=== PATIENT | female | born 1950 | race Caucasian/White ===

== ENCOUNTER → 2016-12-22 | Outpatient (CLI) | payer MEDICARE, OTHER ==
[2016-12-22 10:18] LABS: CH 30.8; CHCM 33.4; HCT 40.5 % (34.0-46.0); HDW 2.55; MCH 29.7 pg (25.0-35.0); MCHC 32.2 g/dL (31.0-37.0); MCV 92.4 fL (80.0-100.0); Mean Platelet Volume 7.4; RBC 4.38 m/uL (3.80-5.40); RDW 12.5 % (11.5-15.5); WBC 5.8 k/uL (3.8-10.6)
[2016-12-22 10:36] LABS: Calcium 10.1 mg/dL (8.4-10.2); Potassium 4.3 mmol/L (3.5-5.1); Total Bilirubin 0.9 mg/dL (0.2-1.3); Total Protein 7.2 g/dL (6.3-8.2)
== END | disposition home or self-care (01) ==
LOC: LABPAT 09:36
PROVIDERS: ATTEND Surgery
DX: Z01.812 Encounter for preprocedural laboratory examination (principal); Z01.810 Encounter for preprocedural cardiovascular examination
CPT/HCPCS: 80053; 85027

== ENCOUNTER 2017-01-13 07:10 | Inpatient (IN) | payer MEDICARE, OTHER ==
[~2017-01-13 07:10] MED LIST: DEXAMETHASONE SOD PHOSPHATE 10 MG/ML 1 ML VIAL IV ONE; ENOXAPARIN 40 MG/0.4 ML SYRINGE SQ ONE; ONDANSETRON 4 MG/2 ML VIAL IVP ONE; ceFAZolin 2 GM in SODIUM CHLORIDE 0.9% 100 ML IVPB ONE
[2017-01-13] MEDS: LACTATED RINGERS 1,000 ML IV SCH (08:27)
[2017-01-13] MEDS: MIDAZOLAM 2 MG/2 ML VIAL IV PRN ×2 (08:31→08:39)
--- NOTE | 2017-01-13 09:32 | P.GSHP ---
History of Present Illness H&P Date: 01/13/17 Chief Complaint: Morbid obesity Patient here today for elective sleeve gastrectomy. She has been followed in the outpatient setting over the last several months for this. She has a history of chronic reflux disease. She is a previous upper endoscopy showing hiatal hernia. She did previously consider gastric bypass but is more comfortable with the option of sleeve gastrectomy. She has the comorbidities of hyperlipidemia hypertension arthritis and reflux. Denies dysphagia or DVT in the past. She does have a history of postoperative nausea and vomiting. No tobacco use. Recent weight 110 kg with height 5 foot 5 BMI 36. Past Medical History Past Medical History: GERD/Reflux, Hyperlipidemia, Hypertension, Osteoarthritis (OA), Skin Disorder, Sleep Apnea/CPAP/BIPAP Additional Past Medical History / Comment(s): rosacea, neuopathy bilateral , chronic back pain,GLAUCOMA History of Any Multi-Drug Resistant Organisms: None Reported Past Surgical History: Appendectomy, Cholecystectomy, Hysterectomy, Joint Replacement, Orthopedic Surgery, Tonsillectomy, Tubal Ligation Additional Past Surgical History / Comment(s): lasik, orif rt elbow, rt hip replacement, cataracts, left knee replacement, Past Anesthesia/Blood Transfusion Reactions: Motion Sickness, Postoperative Nausea & Vomiting (PONV) Past Psychological History: Anxiety, Depression Smoking Status: Never smoker Past Alcohol Use History: None Reported Past Drug Use History: None Reported - Past Family History Father Family Medical History: Seizure Disorder Additional Family Medical History / Comment(s): alcoholic, metal plate in head, at 54 Mother Family Medical History: Cancer Additional Family Medical History / Comment(s): cancer of bowel Medications and Allergies Home Medications Medication Instructions Recorded Confirmed Type ALPRAZolam [Xanax] 0.5 mg PO BID 07/03/14 01/13/17 History Olmesartan/Hydrochlorothiazide 1 tab PO HS 07/03/14 01/13/17 History [Benicar Hct 40-25 mg Tablet] Metoprolol Succinate [Toprol XL] 50 mg PO HS 07/10/14 01/13/17 History traMADol HCl [Ultram] 100 mg PO HS 04/23/15 01/13/17 History Atorvastatin [Lipitor] 40 mg PO HS 03/11/16 01/13/17 History Escitalopram [Lexapro] 20 mg PO DAILY 04/20/16 02/22/17 History Omeprazole 20 mg PO DAILY 03/11/16 01/13/17 History Allergies Allergy/AdvReac Type Severity Reaction Status Date / Time adhesive tape Allergy Rash/Hives Verified 01/13/17 07:57 Penicillins Allergy Rash/Hives Verified 01/13/17 07:57 bandaids Allergy red skin Uncoded 01/13/17 07:57 Surgical - Exam Vital Signs Temp Pulse Resp BP Pulse Ox 97.9 F 61 20 103/51 96 01/13/17 08:05 01/13/17 08:05 01/13/17 08:05 01/13/17 08:05 01/13/17 08:05 Physical exam: General: Well-developed, well-nourished HEENT: Normocephalic, sclerae nonicteric Abdomen: Nontender, nondistended Extremities: No edema Neuro: Alert and oriented Assessment and Plan (1) Obesity (BMI 30-39.9) Narrative/Plan: Will proceed with elective sleeve gastrectomy at this time. The risks of bleeding, infection, leak, stricture, abscess, fistula formation, peritonitis, respiratory failure, PE, DVT, increased or persistent reflux, poor weight loss were all discussed. She understands and wishes to proceed. Status: Acute
[2017-01-13] MEDS ORDERED: GLYCOPYRROLATE 0.2 MG/ML 2 ML VIAL ONE (09:56)
[2017-01-13] MEDS ORDERED: SUCCINYLCHOLINE CHLORIDE 100 MG/5 ML SYR IV ONE (09:56)
[2017-01-13] MEDS ORDERED: MIDAZOLAM 2 MG/2 ML VIAL ONE (09:56)
[2017-01-13] MEDS ORDERED: fentaNYL (PF) 50 MCG/ML 2 ML AMP ONE (09:56)
[2017-01-13] MEDS ORDERED: PROPOFOL 10 MG/ML 20 ML VIAL IV ONE (09:56)
[2017-01-13] MEDS ORDERED: NEOSTIGMINE 1 MG/ML 10 ML VIAL ONE (09:56)
[2017-01-13] MEDS ORDERED: ROCURONIUM BROMIDE 10 MG/ML 10 ML VIAL IV ONE (09:56)
[2017-01-13] MEDS ORDERED: BUPIVACAIN-EPI 0.25%-1:200,000 30 ML VIAL SQ ONE (10:29)
[2017-01-13] MEDS ORDERED: LACTATED RINGERS 1,000 ML IV ONE (11:31)
[2017-01-13] MEDS ORDERED: SIMETHICONE 40 MG/0.6 ML DROPS 2,000 MG/30 ML BOTTLE PO PRN (12:15)
[2017-01-13] MEDS ORDERED: NALOXONE 0.4 MG/ML 1 ML VIAL IV PRN (12:15)
[2017-01-13] MEDS ORDERED: ONDANSETRON 4 MG/2 ML VIAL IVP PRN (12:15)
[2017-01-13] MEDS ORDERED: HYOSCYAMINE ORAL DROPS 1.875 MG/15 ML BOTTLE PO PRN (12:15)
[2017-01-13] MEDS ORDERED: diphenhydrAMINE 50 MG/ML 1 ML VIAL IVP PRN (12:15)
[2017-01-13] MEDS: HYDROmorphone 1 MG/ML 1 ML SYRINGE IVP PRN ×3 (12:40→18:50)
--- NOTE | 2017-01-13 12:44 | P.OP ---
Date of Procedure: 01/13/17 Procedure(s) Performed: PREOPERATIVE DIAGNOSIS: Morbid obesity, hypertension, GERD, hyperlipidemia, arthritis POSTOPERATIVE DIAGNOSIS: Same PROCEDURE: Laparoscopic sleeve gastrectomy [with repair hiatal hernia] SURGEON: Taya EBL: Minimal ANESTHESIA: General COMPLICATIONS: None OPERATIVE PROCEDURE: Patient was placed in the operating table in the supine position. She was placed under general anesthesia at that time. The abdomen was prepped and draped in sterile fashion after the patient was placed in lithotomy. A 5 mm optical trocar was used to enter the abdominal cavity in the left upper quadrant. Insufflation took place to 15 millimeters mercury. An additional right subxiphoid 5 mm trocar was then placed under direct relation and then removed. 2 additional 5 mm trochars were placed in the right upper quadrant and left upper quadrant under direct visualization and a 15 mm trocar in the infra umbilical location. The liver was retracted using a medium Sierra liver retractor through the right subxiphoid trocar site. The hiatus was inspected. The patient had a small to moderate sized hiatal hernia. Circumferentially the phrenoesophageal ligament was incised identifying the actual defect. The right diaphragmatic crura was well visualized. I was able to bluntly dissect and visualize the left diaphragmatic crura. At that point I moved to the mid aspect of the greater curvature the stomach. The short gastric vasculature was divided using a LigaSure device proximally. I then switched and divided the short gastrics distally to a 3-4 cm from the pylorus. The dissection took place up to the left diaphragmatic crura at that point. The posterior short gastrics were likewise divided using the LigaSure device. Once the stomach was fully mobilized the blunt tipped 40-Romanian bougie dilator was advanced into the stomach and advanced all the way to the prepyloric location. A black echelon 60 stapler was utilized and fired tangentially across the antrum taking care to avoid narrowing at the incisura angularis. Subsequent firings of the stapler took place. A total of 6 green echelon 60 staplers with seam guard took place proximally staying on the outer edge of our dilator. The oral gastric tube was reinserted. The stomach was insufflated with approximately 100 mL of methylene blue. No evidence of leak or obstruction was seen. The hiatus was then addressed once again. 2 separate 2- 0 Ethibond sutures were used to reapproximate the crura posteriorly. This adequately closed the diaphragmatic hernia. Tisseel fibrin glue was then sprayed along the entire length of the staple line. No bleeding was identified. The distal aspect of the sleeve was then reapproximated to the gastrosplenic and gastrocolic ligament using a short running 20 strata fix suture. This was done to prevent kinking or twisting of the sleeve. The stomach remnant was removed from the 15 mm trocar site without difficulty. The fascia at the 15 more site was closed using interrupted 0 Vicryl sutures with the laparoscopic suture passer and Adryan Chele technique. The insufflation was evacuated. The skin at all 5 incisions were closed using 4-0 Monocryl sutures. Steri-Strips and sterile dressings were then applied. DISPOSITION: Stable to recovery room
[2017-01-13] MEDS: ACETAMINOPHEN IV (For NPO) 1,000 MG in EMPTY BAG 1 BAG IVPB ONE ×3 (13:30→15:12)
[2017-01-13] MEDS: ALBUTEROL NEBULIZED 2.5 MG/3 ML INHALATION SCH ×2 (15:43→19:25)
[2017-01-13] MEDS: 0.9% NACL WITH KCL 20 MEQ/L 1,000 ML IV SCH ×2 (18:48→20:36)
[2017-01-14] MEDS: HYDROmorphone 1 MG/ML 1 ML SYRINGE IVP PRN ×3 (00:08→09:06)
[2017-01-14] MEDS: 0.9% NACL WITH KCL 20 MEQ/L 1,000 ML IV SCH (02:14)
[2017-01-14] MEDS: LACTATED RINGERS 1,000 ML IV SCH (05:52)
[2017-01-14 07:36] LABS: Basophils % (A) 0 %; CH 30.7; CHCM 33.2; Eosinophils % (A) 0 %; HDW 2.38; HGB 11.2 gm/dL (11.4-16.0); Luc # (Auto) 0.26; Luc % (Auto) 3; Lymphocytes # (A) 1.5 k/uL (1.0-4.8); Lymphocytes % (A) 16 %; MCH 30.6 pg (25.0-35.0); MCHC 32.9 g/dL (31.0-37.0); MCV 92.9 fL (80.0-100.0); Mean Platelet Volume 7.9; Monocytes # (A) 0.6 k/uL (0-1.0); Monocytes % (A) 6 %; Neutrophils # (A) 7.4 k/uL (1.3-7.7); Neutrophils % (A) 75 %; RBC 3.66 m/uL (3.80-5.40); WBC 9.9 k/uL (3.8-10.6); WBC (Perox) 11.06
[2017-01-14 07:54] LABS: Calcium 9.2 mg/dL (8.4-10.2); Magnesium 2.2 mg/dL (1.6-2.3); Phosphorous 3.4 mg/dL (2.5-4.5); Potassium 5.2 mmol/L (3.5-5.1)
[2017-01-14] MEDS ORDERED: 1: MVI, ADULT NO.4 WITH VIT K 10 ML, THIAMINE 100 MG, FOLIC ACID 1 MG, POTASSIUM CHLORID IV SCH ×6 (08:00)
[2017-01-14] MEDS: ALBUTEROL NEBULIZED 2.5 MG/3 ML INHALATION SCH (08:54)
[2017-01-14] MEDS: PANTOPRAZOLE 40 MG/10 ML VIAL IV SCH (09:03)
[2017-01-14] MEDS: ENOXAPARIN 40 MG/0.4 ML SYRINGE SQ SCH ×2 (09:04→21:25)
--- NOTE | 2017-01-14 09:20 | FL ---
EXAMINATION TYPE: FL UGI DATE OF EXAM: 01/14/2017 9:10 AM LIMITED UGI: CLINICAL HISTORY: Morbid Obesity, history of Rm fundoplication surgery in the past status post g astric sleeve surgery yesterday. TECHNIQUE: Limited esophagram is performed utilizing 50 oz of Omnipaque 350. A total of 39 seconds o f fluoroscopic time was utilized during procedure. COMPARISON: None. FINDINGS: The patient swallowed contrast without difficulty or delay. Esophageal peristalsis and mo tility are within normal limits. There is good flow of contrast along the diaphragmatic hiatus into proximal stomach and subsequent flow into gastric sleeve. No persistent hiatal hernia is seen. There is mild delay in flow from distal sleeve into pylorus and duodenal sweep. Patient remains nauseous be fore and after procedure without vomiting. There is no evidence of contrast extravasation to suggest leak. Cholecystectomy clips are incidentally noted. IMPRESSION: No evidence of leak or significant obstruction status post recent gastric sleeve surgery yesterday.
[2017-01-14] MEDS ORDERED: METOCLOPRAMIDE 5 MG/ML 2 ML VIAL IVP PRN (09:21)
[2017-01-14] MEDS ORDERED: ONDANSETRON 4 MG/2 ML VIAL IVP PRN (09:24)
[2017-01-14] MEDS: KETOROLAC 30 MG/ML 1 ML VIAL IVP PRN ×3 (09:34→20:25)
[2017-01-14] MEDS: DEXTROSE 5%-0.45% NACL 1,000 ML IV SCH ×2 (09:35→20:22)
[2017-01-14 12:29] VITALS: BMI 35.5
--- NOTE | 2017-01-14 12:43 | P.CONS ---
History of Present Illness - Reason for Consult Consult date: 01/14/17 Medical management Requesting physician: Ryan Bain - Chief Complaint Morbid obesity - History of Present Illness Patient is a 66-year-old white female, with past medical history noted below significant for morbid obesity not responding to conservative treatment, admitted to the hospital for elective laparoscopic sleeve gastrectomy with repair of hiatal hernia. Patient tolerated procedure well. Patient is evaluated on the surgical floor where she is postop day #1. Patient is complaining of moderate incisional pain. Reports minimal nausea without vomiting. Denies chills, fevers, shortness of breath, or chest pain. Denies flatus or bowel movements. Patient has been up ambulating. Patient is urinating without difficulty. Upper GI series from this morning with no evidence of leak or obstruction. Patient is tolerating sips of liquids. Past Medical History Past Medical History: GERD/Reflux, Hyperlipidemia, Hypertension, Osteoarthritis (OA), Skin Disorder, Sleep Apnea/CPAP/BIPAP Additional Past Medical History / Comment(s): rosacea, neuopathy bilateral , chronic back pain,GLAUCOMA History of Any Multi-Drug Resistant Organisms: None Reported Past Surgical History: Appendectomy, Cholecystectomy, Hysterectomy, Joint Replacement, Orthopedic Surgery, Tonsillectomy, Tubal Ligation Additional Past Surgical History / Comment(s): lasik, orif rt elbow, rt hip replacement, cataracts, left knee replacement, Past Anesthesia/Blood Transfusion Reactions: Motion Sickness, Postoperative Nausea & Vomiting (PONV) Past Psychological History: Anxiety, Depression Smoking Status: Never smoker Past Alcohol Use History: None Reported Past Drug Use History: None Reported - Past Family History Father Family Medical History: Seizure Disorder Additional Family Medical History / Comment(s): alcoholic, metal plate in head, at 54 Mother Family Medical History: Cancer Additional Family Medical History / Comment(s): cancer of bowel Medications and Allergies Home Medications Medication Instructions Recorded Confirmed Type ALPRAZolam [Xanax] 0.5 mg PO BID 07/03/14 01/13/17 History Olmesartan/Hydrochlorothiazide 1 tab PO HS 07/03/14 01/13/17 History [Benicar Hct 40-25 mg Tablet] traMADol HCl [Ultram] 100 mg PO HS 04/23/15 01/13/17 History Atorvastatin [Lipitor] 40 mg PO HS 03/11/16 01/13/17 History Escitalopram [Lexapro] 20 mg PO DAILY 03/11/16 01/13/17 History Omeprazole 20 mg PO DAILY 03/11/16 01/13/17 History Metoprolol Succinate [Toprol XL] 50 mg PO HS 01/13/17 01/13/17 History Allergies Allergy/AdvReac Type Severity Reaction Status Date / Time adhesive tape Allergy Rash/Hives Verified 01/13/17 07:57 Penicillins Allergy Rash/Hives Verified 01/13/17 07:57 albuterol AdvReac Unknown Verified 01/14/17 09:53 bandaids Allergy red skin Uncoded 01/13/17 07:57 Physical Exam Vitals: Vital Signs Temp Pulse Pulse Pulse Pulse Resp BP 01/14/17 09:08 01/14/17 09:04 84 01/14/17 08:54 80 01/14/17 08:00 72 64 16 01/14/17 07:00 97.6 F 64 16 01/14/17 06:24 57 L 18 01/14/17 01:10 98.2 F 91 16 01/14/17 00:16 82 01/14/17 00:00 01/13/17 23:34 01/13/17 20:00 97.0 F L 98 16 01/13/17 19:39 88 01/13/17 19:22 88 01/13/17 16:31 01/13/17 16:00 80 16 01/13/17 15:50 80 01/13/17 15:15 63 01/13/17 15:00 57 L 01/13/17 14:45 57 L 01/13/17 14:30 50 L 01/13/17 14:15 55 L 01/13/17 14:00 97.4 F L 60 16 01/13/17 13:43 72 16 01/13/17 13:30 71 16 01/13/17 13:15 64 16 01/13/17 13:00 67 16 01/13/17 12:45 64 16 01/13/17 12:33 77 16 133/60 BP Pulse Ox 01/14/17 09:08 99 01/14/17 09:04 01/14/17 08:54 01/14/17 08:00 01/14/17 07:00 121/68 99 01/14/17 06:24 133/60 100 02/23/17 01:10 105/59 92 L 01/14/17 00:16 118/74 01/14/17 00:00 97 01/13/17 23:34 94 L 01/13/17 20:00 125/60 96 01/13/17 19:39 01/13/17 19:22 01/13/17 16:31 94 L 01/13/17 16:00 01/13/17 15:50 01/13/17 15:15 161/75 95 01/13/17 15:00 159/66 95 01/13/17 14:45 150/68 95 01/13/17 14:30 162/64 95 01/13/17 14:15 162/64 95 01/13/17 14:00 145/76 95 01/13/17 13:43 152/75 99 01/13/17 13:30 157/77 99 01/13/17 13:15 136/81 96 01/13/17 13:00 96/53 96 01/13/17 12:45 95/60 96 01/13/17 12:33 96 Intake and Output 01/13/17 01/14/17 01/14/17 22:59 06:59 14:59 Output Total 50 150 Balance -50 -150 Output: Urine 50 150 Other: Voiding Method Toilet Toilet Toilet # Voids 1 180 Weight 98.43 kg Patient Weight 01/15/17 06:59 Weight 98.43 kg GENERAL: Pt awake and alert, well-appearing, well-nourished, and in no acute distress. HEAD: Atraumatic, normocephalic. EYES: Pupils equal and round. Sclera anicteric, conjunctiva are normal. ENT: Moist mucous membranes. NECK:Supple without lymphadenopathy or JVD. LUNGS: Breath sounds clear to auscultation bilaterally. No wheezes, rales, or rhonchi. HEART: Heart S1, S2, no S3 or S4. Regular rate and rhythm. No murmurs, rubs or gallops. ABDOMEN: Soft, morbidly obese, mild incisional tenderness, nondistended, normoactive bowel sounds. Laparoscopic surgical incisions clean, dry, no erythema or drainage. EXTREMITIES: Palpable peripheral pulses. No edema. No calf tenderness. NEUROLOGICAL: Pt oriented x 3. No focal deficits. Strength and sensation grossly intact. PSYCH: Normal mood, normal affect. SKIN: Warm, dry, intact. Results CBC & Chem 7: 01/14/17 07:17 01/14/17 07:17 Labs: Abnormal Lab Results - Last 24 Hours (Table) 01/14/17 01/14/17 Range/Units 07:17 07:17 RBC 3.66 L (3.80-5.40) m/uL Hgb 11.2 L (11.4-16.0) gm/dL Potassium 5.2 H (3.5-5.1) mmol/L BUN 38 H (7-17) mg/dL Creatinine 1.43 H (0.52-1.04) mg/dL Assessment and Plan Plan: Impression and plan: 1. Morbid obesity status post laparoscopic sleeve gastrectomy. Continue surgical management by surgical service. 2. Anemia, postop suspect secondary to minimal blood loss and possible hemodilution. 3. Hyperkalemia. Potassium 5.2. Discontinue potassium from IV fluids. 4. Acute renal failure suspect secondary to dehydration. Continue IV fluids. Will hold Benicar. 5. Chronic renal failure, stage III. 6. Dyslipidemia. Continue Lipitor. 7. GERD. Continue Protonix. 8. Hypertension. Continue metoprolol. 9. Osteoarthritis to multiple joints. 10. Chronic back pain. Continue supportive treatment. 11. Sleep apnea. Continue to monitor. 12. History of Glaucoma. 13. Anxiety and depression, stable. Continue Lexapro. 14. GI prophylaxis. Continue Protonix. 15. DVT prophylaxis. Continue Lovenox. 16. Repeat CBC and BMP in a.m. The above impression and plan have been discussed and directed by Dr. Chamberlain. Dana CRAWFORD acting as scribe for Dr. Chamberlain.
[2017-01-14] MEDS: ESCITALOPRAM 20 MG TAB PO SCH (13:06)
[2017-01-14 14:48] LABS: Glucose,Whole Blood 107 mg/dL (75-99)
[2017-01-14] MEDS ORDERED: LORazepam 2 MG/ML SYRINGE IV STA (14:55)
[2017-01-14] MEDS ORDERED: KETOROLAC 30 MG/ML 1 ML VIAL IVP SCH (15:00)
[2017-01-14] MEDS: ALPRAZolam 0.5 MG TAB PO SCH ×2 (15:01→20:25)
--- NOTE | 2017-01-14 19:13 | P.PN ---
Subjective Principal diagnosis: Morbid obesity Patient doing fairly well from a bariatric standpoint. She is having mild left upper quadrant pain. Denies dysphagia. Upper GI shows no evidence of leak or obstruction. She has afebrile without tachycardia. Her white blood cell count is normal. Objective - Vital Signs Vital signs: Vital Signs Temp 97.5 F L 01/14/17 14:58 Pulse 84 01/14/17 16:00 Resp 20 01/14/17 16:00 BP 131/76 01/14/17 14:58 Pulse Ox 99 01/14/17 14:58 Intake & Output 01/14/17 01/14/17 01/15/17 06:59 18:59 06:59 Output Total 200 300 Balance -200 -300 Weight 98.43 kg Output: Urine 200 300 Other: Voiding Method Toilet Toilet # Voids 180 - Exam Abdomen: Soft, nondistended, mild tenderness at the incision sites - Labs CBC & Chem 7: 01/14/17 07:17 01/14/17 07:17 Labs: Abnormal Lab Results - Last 24 Hours (Table) 01/14/17 01/14/17 01/14/17 Range/Units 07:17 07:17 14:45 RBC 3.66 L (3.80-5.40) m/uL Hgb 11.2 L (11.4-16.0) gm/dL Potassium 5.2 H (3.5-5.1) mmol/L BUN 38 H (7-17) mg/dL Creatinine 1.43 H (0.52-1.04) mg/dL POC Glucose (mg/dL) 107 H (75-99) mg/dL Assessment and Plan (1) Obesity (BMI 30-39.9) Narrative/Plan: Continue bariatric clear diet. Increase activity. Reevaluate tomorrow. Status: Acute
[2017-01-14] MEDS ORDERED: HYDROCHLOROTHIAZIDE 25 MG TAB PO SCH (21:00)
[2017-01-14] MEDS ORDERED: METOPROLOL SUCCINATE (ER) 50 MG TAB.ER.24H PO SCH (21:00)
[2017-01-14] MEDS ORDERED: ATORVASTATIN 40 MG TAB PO SCH (21:00)
[2017-01-14] MEDS ORDERED: LOSARTAN 50 MG TAB PO SCH (21:00)
[2017-01-15] MEDS: DEXTROSE 5%-0.45% NACL 1,000 ML IV SCH ×2 (01:51→10:56)
[2017-01-15] MEDS: KETOROLAC 30 MG/ML 1 ML VIAL IVP PRN ×2 (02:02→07:54)
[2017-01-15 02:22] VITALS: RESP 16
[2017-01-15 07:48] LABS: Basophils # (A) 0.1 k/uL (0-0.2); Basophils % (A) 1 %; CH 30.5; CHCM 32.5; Eosinophils # (A) 0.1 k/uL (0-0.7); Eosinophils % (A) 1 %; HCT 32.2 % (34.0-46.0); HDW 2.39; HGB 10.5 gm/dL (11.4-16.0); Luc # (Auto) 0.22; Luc % (Auto) 3; Lymphocytes # (A) 2.4 k/uL (1.0-4.8); Lymphocytes % (A) 29 %; MCH 30.9 pg (25.0-35.0); MCHC 32.7 g/dL (31.0-37.0); MCV 94.4 fL (80.0-100.0); Mean Platelet Volume 7.7; Monocytes # (A) 0.6 k/uL (0-1.0); Monocytes % (A) 7 %; Neutrophils # (A) 4.9 k/uL (1.3-7.7); Neutrophils % (A) 59 %; RBC 3.41 m/uL (3.80-5.40); RDW 13.2 % (11.5-15.5); WBC 8.2 k/uL (3.8-10.6); WBC (Perox) 8.97
[2017-01-15 08:07] LABS: Calcium 9.1 mg/dL (8.4-10.2); Potassium 4.4 mmol/L (3.5-5.1)
[2017-01-15] MEDS: ESCITALOPRAM 20 MG TAB PO SCH (08:07)
[2017-01-15] MEDS: ENOXAPARIN 40 MG/0.4 ML SYRINGE SQ SCH (08:07)
[2017-01-15] MEDS: PANTOPRAZOLE 40 MG/10 ML VIAL IV SCH (08:07)
[2017-01-15] MEDS: ALPRAZolam 0.5 MG TAB PO SCH (08:10)
--- NOTE | 2017-01-15 13:21 | P.DS ---
Providers Date of admission: 01/13/17 07:10 Expected date of discharge: 01/15/17 Attending physician: Ryan Bain Consults: 01/13/17 12:15 Consult Physician Routine Consulting Provider: Rogerio Chamberlain Consult Reason/Comments: Medical management Do you want consulting provider notified?: Yes Primary care physician: Rogerio Chamberlain - Discharge Diagnosis(es) (1) Obesity (BMI 30-39.9) Patient hospitalized for elective sleeve gastrectomy. Postoperative issues done quite well. She is tolerating her diet at this time. She did have an anxiety attack that was treated well with Ativan. She would like to try to go home today. She has had about 15 ounces of liquids thus far today. Her labs have been reviewed. Incisions are clean and dry. Prescription for [place] provided upon discharge. She will follow up me in the office next Wednesday. Current Visit: No Status: Acute Plan - Discharge Summary New Discharge Prescriptions: Hydrocodone/Acetaminophen [[place] 5-325] 1 - 2 each PO Q4HR PRN #30 tab PRN Reason: pain Discharge Medication List ALPRAZolam [Xanax] 0.5 mg PO BID 07/03/14 [History] Olmesartan/Hydrochlorothiazide [Benicar Hct 40-25 mg Tablet] 1 tab PO HS [History] traMADol HCl [Ultram] 100 mg PO HS 04/23/15 [History] Atorvastatin [Lipitor] 40 mg PO HS 03/11/16 [History] Escitalopram [Lexapro] 20 mg PO DAILY 03/11/16 [History] Omeprazole 20 mg PO DAILY 03/11/16 [History] Hydrocodone/Acetaminophen [[place] 5-325] 1 - 2 each PO Q4HR PRN #30 tab 01/13/17 [Rx] Metoprolol Succinate [Toprol XL] 50 mg PO HS 01/13/17 [History] Follow up Appointment(s)/Referral(s): [facility] [NON-STAFF] - 01/19/17 [facility], [NON-STAFF] - 1 Week
--- NOTE | 2017-01-15 13:37 | P.PN ---
Subjective Principal diagnosis: Morbid obesity Patient is a 66-year-old white female, with past medical history noted below significant for morbid obesity not responding to conservative treatment, admitted to the hospital for elective laparoscopic sleeve gastrectomy with repair of hiatal hernia. Patient tolerated procedure well. Patient is evaluated on the surgical floor where she is postop day #2. Patient is complaining of mild incisional pain. Denies dysphagia chills, nausea, vomiting , shortness of breath, or chest pain. Reports flatus without bowel movement. Patient has been up ambulating. Patient is urinating without difficulty. Patient is tolerating sips of liquids. Objective - Vital Signs Vital signs: Vital Signs Temp 97.4 F L 01/15/17 07:00 Pulse 104 H 01/15/17 10:50 Resp 16 01/15/17 08:00 BP 139/65 01/15/17 07:00 Pulse Ox 95 01/15/17 10:50 Intake & Output 01/14/17 01/15/17 01/15/17 18:59 06:59 18:59 Output Total 300 450 200 Balance -300 -450 -200 Weight 98.43 kg 98.43 kg Output: Urine 300 450 200 Other: Voiding Method Toilet Toilet Toilet # Voids 180 - Exam GENERAL: Pt awake and alert, well-appearing, well-nourished, and in no acute distress. HEAD: Atraumatic, normocephalic. EYES: Pupils equal and round. Sclera anicteric, conjunctiva are normal. ENT: Moist mucous membranes. NECK:Supple without lymphadenopathy or JVD. LUNGS: Breath sounds clear to auscultation bilaterally. No wheezes, rales, or rhonchi. HEART: Heart S1, S2, no S3 or S4. Regular rate and rhythm. No murmurs, rubs or gallops. ABDOMEN: Soft, morbidly obese, mild incisional tenderness, nondistended, normoactive bowel sounds. Laparoscopic surgical incisions clean, dry, no erythema or drainage. EXTREMITIES: Palpable peripheral pulses. No edema. No calf tenderness. NEUROLOGICAL: Pt oriented x 3. No focal deficits. Strength and sensation grossly intact. PSYCH: Normal mood, normal affect. SKIN: Warm, dry, intact. - Labs CBC & Chem 7: 01/15/17 07:15 01/15/17 07:15 Labs: Abnormal Lab Results - Last 24 Hours (Table) 01/14/17 01/15/17 01/15/17 Range/Units 14:45 07:15 07:15 RBC 3.41 L (3.80-5.40) m/uL Hgb 10.5 L (11.4-16.0) gm/dL Hct 32.2 L (34.0-46.0) % BUN 26 H (7-17) mg/dL Creatinine 1.43 H (0.52-1.04) mg/dL POC Glucose (mg/dL) 107 H (75-99) mg/dL Assessment and Plan Plan: Impression and plan: 1. Morbid obesity status post laparoscopic sleeve gastrectomy. Continue surgical management by surgical service. 2. Anemia, postop suspect secondary to minimal blood loss and possible hemodilution. 3. Hyperkalemia. Potassium 5.2. Discontinue potassium from IV fluids. 4. Acute renal failure suspect secondary to dehydration, improving. Continue IV fluids. Will hold Benicar. 5. Chronic renal failure, stage III. 6. Dyslipidemia. Continue Lipitor. 7. GERD. Continue Protonix. 8. Hypertension. Continue metoprolol. 9. Osteoarthritis to multiple joints. 10. Chronic back pain. Continue supportive treatment. 11. Sleep apnea. Continue to monitor. 12. History of Glaucoma. 13. Anxiety and depression, stable. Continue Lexapro. 14. GI prophylaxis. Continue Protonix. 15. DVT prophylaxis. Continue Lovenox. From medical standpoint, patient is stable for discharged when cleared by surgical service. Patient will follow-up with Dr. Chamberlain in a week in the outpatient setting. The above impression and plan have been discussed and directed by Dr. Chamberlain. Dana CRAWFORD acting as scribe for Dr. Chamberlain.
[2017-01-15] MEDS ORDERED: HYDROcodone/APAP 5-325MG 1 EACH TAB PO STA (15:03)
[2017-01-15 15:47] VITALS: BP 131/62; PULSE 60; TEMP 97.2
== END 2017-01-15 16:46 | disposition home or self-care (01) | DRG 620 ==
LOC: 2ORWHC 07:10 → 3SUR 12:20
PROVIDERS: ADMIT Surgery; ATTEND Surgery
PROC: 0DB64Z3 Excision of Stomach, Percutaneous Endoscopic Approach, Vertical (ICD-10-PCS; principal; 2017-01-13 08:50)
PROC: 0BQR4ZZ (ICD-10-PCS; principal; 2017-01-13 08:50)
PROC: 0BQS4ZZ (ICD-10-PCS; principal; 2017-01-13 08:50)
DX: E66.01 Morbid (severe) obesity due to excess calories (principal); N17.9 Acute kidney failure, unspecified; E87.5 Hyperkalemia; I12.9 Hypertensive chronic kidney disease with stage 1 through stage 4 chronic kidney disease, or unspecified chronic kidney disease; E78.5 Hyperlipidemia, unspecified; D64.9 Anemia, unspecified; F32.9 Major depressive disorder, single episode, unspecified; F41.1 Generalized anxiety disorder; G47.30 Sleep apnea, unspecified; G89.29 Other chronic pain; H40.9 Unspecified glaucoma; K21.9 Gastro-esophageal reflux disease without esophagitis; K44.9 Diaphragmatic hernia without obstruction or gangrene; M19.90 Unspecified osteoarthritis, unspecified site; N18.3 Chronic kidney disease, stage 3 (moderate); Z79.899 Other long term (current) drug therapy; Z68.36 Body mass index [BMI] 36.0-36.9, adult; Z88.0 Allergy status to penicillin
CPT/HCPCS: 74240; 80048; 80051; 82310; 82565; 83735; 84100; 84520; 85025; 88307; 92950; 94640; 94760

== ENCOUNTER → 2017-01-19 | Outpatient (CLI) | payer MEDICARE, OTHER ==
[2017-01-19 13:22] VITALS: BP 126/68; PULSE 70; TEMP 97.6; BMI 35.9
--- NOTE | 2017-01-19 14:02 | P.BASOAP ---
Subjective Principal diagnosis: Morbid obesity Patient doing well today. Minimal if any discomfort. She is 6 days post sleeve gastrectomy. No nausea or vomiting. Adequate liquid intake of 60-70 ounces daily. Protein intake is about 30-40 g per day. No fevers or chills. No heartburn. Objective - Vital Signs Vital signs: Vital Signs Temp 97.6 F 01/19/17 13:18 Pulse 70 01/19/17 13:18 Resp BP 126/68 01/19/17 13:18 Pulse Ox Intake & Output 01/18/17 01/19/17 01/19/17 18:59 06:59 18:59 Weight 97.749 kg - Exam Abdomen: Soft, nondistended, minimal tenderness at the incision sites which are clean and dry Assessment/Plan (1) Morbid obesity Narrative/Plan: Continue liquid diet. Dietary evaluation today. Monitor liquid protein intake. Follow-up visit 2 weeks. Plan: Date: 01/19/17 Initial Weight: 100.834 kg Initial BMI: 37.0 Current Weight: 97.749 kg Current BMI: 35.9 Type of Surgery: Total Volume in Band: Previous Volume: Volume Removed: Volume Added: Band Size:
== END | disposition home or self-care (01) ==
LOC: BARWHC3 12:52
PROVIDERS: ATTEND Surgery
DX: Z48.815 Encounter for surgical aftercare following surgery on the digestive system (principal); Z71.3 Dietary counseling and surveillance; E66.01 Morbid (severe) obesity due to excess calories; Z68.35 Body mass index [BMI] 35.0-35.9, adult
CPT/HCPCS: 97803; G0463; 99211

== ENCOUNTER → 2017-02-02 | Outpatient (CLI) | payer MEDICARE, OTHER ==
[2017-02-02 14:20] VITALS: BP 111/72; PULSE 72; RESP 20; TEMP 97.9; BMI 34.2
--- NOTE | 2017-02-17 10:17 | P.BASOAP ---
Subjective Principal diagnosis: Morbid obesity Patient seen in the bariatric clinic post-sleeve gastrectomy. She is having mild nausea. No vomiting issues. Liquid intake is adequate. No significant discomfort. Objective - Vital Signs Vital signs: Vital Signs Temp 97.9 F 02/02/17 13:58 Pulse 72 02/02/17 13:58 Resp 20 02/02/17 13:58 BP 111/72 02/02/17 13:58 Pulse Ox - Exam Abdomen: Soft, nondistended, mild tenderness, incisions clean and dry Assessment/Plan (1) Morbid obesity Narrative/Plan: Continue bariatric liquid diet. Continue exercise regimen. Follow-up 2 weeks. Plan: Date: 02/02/17 Initial Weight: 100.834 kg Initial BMI: 37.0 Current Weight: 93.213 kg Current BMI: 34.2 Type of Surgery: Total Volume in Band: Previous Volume: Volume Removed: Volume Added: Band Size:
== END | disposition home or self-care (01) ==
LOC: BARWHC3 13:13
PROVIDERS: ATTEND Surgery
DX: E66.01 Morbid (severe) obesity due to excess calories (principal); Z68.34 Body mass index [BMI] 34.0-34.9, adult; Z98.84 Bariatric surgery status
CPT/HCPCS: 97803; G0463; 99211

== ENCOUNTER 2017-02-18 12:30 | Observation (INO) | payer MEDICARE, OTHER ==
[2017-02-18] MEDS ORDERED: ONDANSETRON 4 MG/2 ML VIAL IVP STA (13:10)
[2017-02-18] MEDS ORDERED: SODIUM CHLORIDE 0.9% 1,000 ML IV STA ×2 (13:10)
--- NOTE | 2017-02-18 13:24 | ED ---
Weakness HPI - General Chief complaint: Weakness Stated complaint: Weakness 6 weeks Post Op Time Seen by Provider: 02/18/17 13:00 Source: patient, family, RN notes reviewed Mode of arrival: wheelchair Limitations: no limitations - History of Present Illness Initial comments: Is a 67-year-old female who is brought in for evaluation weakness and nausea. She had a gastric bypass and about 2 weeks ago is a decreased oral intake. She also is currently being treated for UTI. She was getting labs drawn today which felt weak and nauseated was sent here for evaluation. She denies any focal weakness is generalized weakness. MD Complaint: generalized weakness - Related Data Home Medications Medication Instructions Recorded Confirmed ALPRAZolam [Xanax] 0.5 mg PO BID 07/03/14 02/18/17 traMADol HCl [Ultram] 50 - 100 mg PO HS 04/23/15 02/18/17 Atorvastatin [Lipitor] 40 mg PO HS@1800 03/11/16 02/18/17 Escitalopram [Lexapro] 20 mg PO DAILY 03/11/16 02/18/17 Metoprolol Succinate [Toprol XL] 50 mg PO HS 01/13/17 02/18/17 Multivitamin [Multivitamins Adult 2 tab PO DAILY 02/18/17 02/18/17 Gummies] Olmesartan/Hydrochlorothiazide 1 tab PO HS@1800 02/18/17 02/18/17 [Benicar Hct 40-25 mg Tablet] Previous Rx's Medication Instructions Recorded Omeprazole 20 mg PO DAILY #90 cap 01/15/17 Allergies Allergy/AdvReac Type Severity Reaction Status Date / Time adhesive tape Allergy Rash/Hives Verified 02/18/17 14:05 Penicillins Allergy Rash/Hives Verified 02/18/17 14:05 albuterol AdvReac Unknown Verified 02/18/17 14:05 bandaids Allergy red skin Uncoded 02/02/17 14:54 Review of Systems ROS Statement: Those systems with pertinent positive or pertinent negative responses have been documented in the HPI. ROS Other: All systems not noted in ROS Statement are negative. Past Medical History Past Medical History: GERD/Reflux, Hyperlipidemia, Hypertension, Osteoarthritis (OA), Skin Disorder Additional Past Medical History / Comment(s): migraines, hiatal hernia, rosacea , acne, degenerative disc disease, neuopathy bilateral legs, several radio frequency ablations to back, 15 years of chronic back pain History of Any Multi-Drug Resistant Organisms: None Reported Past Surgical History: Bariatric Surgery, Hysterectomy, Orthopedic Surgery Additional Past Surgical History / Comment(s): lasik, orif rt elbow, rt hip replacement, cataracts, left knee replacement gastric sleeve 01-13-17 Past Anesthesia/Blood Transfusion Reactions: Motion Sickness, Postoperative Nausea & Vomiting (PONV) Past Psychological History: Anxiety Smoking Status: Never smoker Past Alcohol Use History: None Reported Past Drug Use History: None Reported - Past Family History Father Family Medical History: Seizure Disorder Additional Family Medical History / Comment(s): alcoholic, metal plate in head, at 54 Mother Family Medical History: Cancer Additional Family Medical History / Comment(s): cancer of bowel General Exam - General Exam Comments Initial Comments: This is a well-developed well-nourished awake alert anxious appearing female Limitations: no limitations General appearance: alert, in no apparent distress Head exam: Present: atraumatic, normocephalic, normal inspection Eye exam: Present: normal appearance, PERRL, EOMI. Absent: scleral icterus, conjunctival injection, periorbital swelling ENT exam: Present: mucous membranes dry Neck exam: Present: normal inspection. Absent: tenderness, meningismus, lymphadenopathy Respiratory exam: Present: normal lung sounds bilaterally. Absent: respiratory distress, wheezes, rales, rhonchi, stridor Cardiovascular Exam: Present: regular rate, normal rhythm, normal heart sounds. Absent: systolic murmur, diastolic murmur, rubs, gallop, clicks GI/Abdominal exam: Present: soft, normal bowel sounds, other (Well-healing surgical port sites). Absent: distended, tenderness, guarding, rebound, rigid Extremities exam: Present: normal inspection, full ROM, normal capillary refill. Absent: tenderness, pedal edema, joint swelling, calf tenderness Back exam: Present: normal inspection Neurological exam: Present: alert, oriented X3, CN II-XII intact Psychiatric exam: Present: normal affect, normal mood Skin exam: Present: warm, dry, intact, normal color. Absent: rash Course Vital Signs 02/18/17 02/18/17 02/18/17 12:57 14:20 15:00 Temperature 96.8 F L Pulse Rate 72 64 81 Respiratory 20 16 Rate Blood Pressure 170/77 158/72 157/73 O2 Sat by Pulse 99 98 98 Oximetry EKG Findings - EKG Results: EKG: interpreted by ERMD, sinus rhythm (Sinus rhythm of 94. Interval 164 QRS duration 96 daily since QTC of no acute ST-T wave changes evidence of a posterior infarct of undetermined age) Medical Decision Making - Medical Decision Making Patient was seen I did discuss the case with Dr. Bain, patient will be admitted for IV hydration. Dr. weber was to write orders. - Lab Data Lab Results 02/18/17 02/18/17 02/18/17 Range/Units 13:34 13:34 15:00 PT 10.8 (9.0-12.0) sec INR 1.1 (<1.1) APTT 22.2 (22.0-30.0) sec Magnesium 2.1 (1.6-2.3) mg/dL Urine Color Yellow Urine Appearance Clear (Clear) Urine pH 5.5 (5.0-8.0) Ur Specific [place] 1.013 (1.001-1.035) Urine Protein Negative (Negative) Urine Glucose (UA) Negative (Negative) Urine Ketones 1+ H (Negative) Urine Blood Negative (Negative) Urine Nitrite Negative (Negative) Urine Bilirubin Negative (Negative) Urine Urobilinogen <2.0 (<2.0) mg/dL Ur Leukocyte Esterase Large H (Negative) Urine RBC 1 (0-5) /hpf Urine WBC 40 H (0-5) /hpf Ur Squamous Epith Cells 2 (0-4) /hpf Urine Bacteria Rare H (None) /hpf Hyaline Casts 1 (0-2) /lpf - Radiology Data Radiology results: report reviewed (I did review the x-ray report no acute findings), image reviewed Disposition Clinical Impression: Dehydration, Failure to thrive Disposition: ADMITTED IP TO THIS [facility] Condition: Stable
[2017-02-18 14:29] LABS: INR 1.1 (<1.1); Partial Thromboplastin Time 22.2 sec (22.0-30.0); Prothrombin Time 10.8 sec (9.0-12.0)
--- NOTE | 2017-02-18 14:48 | XR ---
EXAMINATION TYPE: XR chest 2V DATE OF EXAM: 02/18/2017 2:44 PM COMPARISON: 07/11/2014 TECHNIQUE: PA and lateral views submitted. HISTORY: Weakness FINDINGS: The lungs are clear and there is no pneumothorax, pleural effusion, or focal pneumonia. Hypertrophi c and degenerative change of the spine. Arthropathy shoulders. IMPRESSION: 1. No acute process.
[2017-02-18 15:14] LABS: Appearance,Urine Clear (Clear); Bacteria,Urine Rare /hpf; Bilirubin,Urine Negative (Negative); Glucose,Urine (UA) Negative (Negative); Ketones,Urine 1+ (Negative); Leukocyte Esterase,Urine Large (Negative); Nitrite,Urine Negative (Negative); PH, Urine 5.5 (5.0-8.0); Particle Count 3197; Protein,Urine Negative (Negative); RBC,Urine 1 /hpf (0-5); Specific Gravity,Urine 1.013 (1.001-1.035); Squamous Epithelial Cell,Urine 2 /hpf (0-4); UA Billing (MACRO vs. MICRO) MICRO; Urobilinogen,Urine <2.0 mg/dL (<2.0); WBC,Urine 40 /hpf (0-5)
[2017-02-18 15:16] LABS: Creatine Kinase 69 U/L (30-135)
[2017-02-18] MEDS ORDERED: NALOXONE 0.4 MG/ML 1 ML VIAL IV PRN (15:24)
[2017-02-18 15:30] LABS: Creatine Kinase MB 0.4 ng/mL (0.0-2.4); Troponin I <0.012 ng/mL (0.000-0.034)
[2017-02-18] MEDS ORDERED: ACETAMINOPHEN TAB 325 MG TAB PO PRN (15:41)
[2017-02-18] MEDS ORDERED: IOHEXOL 350 MG/ML 25 ML BOTTLE (ORAL USE) PO PRN (15:41)
[2017-02-18] MEDS ORDERED: RX INFO: IV CONTRAST WAS GIVEN 1 EACH MISC MISCELLANE PRN (15:41)
--- NOTE | 2017-02-18 15:41 | P.GSHP ---
History of Present Illness H&P Date: 02/18/17 Chief Complaint: Dysphagia, dehydration Patient is well known to our service. The patient underwent elective sleeve gastrectomy on 01/13. Postoperatively the patient was seen on 02/02. It appeared the patient was tolerating her liquid intake at that time although was having problems with diarrhea. It was felt that the diarrhea could be on the basis of the protein drinks and so she held back on some of her protein supplementation for a few days advancing instead to more of a pured diet. Following that the patient described having increasing symptoms of dysphagia. Her oral intake both protein and liquid became less. For the last week or so the patient admits that she has had 20 ounces of liquids per day or less. Apparently she was seen by her primary care physician on Wednesday. She missed our appointment at the bariatric clinic at that time. She was thought to have a urinary tract infection and started on Bactrim. She states the Bactrim made her more nauseous. Our office contacted her on Wednesday and again this morning. The patient was encouraged to come to the hospital for evaluation because of her increasing weakness and the suspicion of dehydration. In the clinic labs were drawn. Her white blood cell count is normal. Her kidney function is showing evidence of dehydration. She is afebrile and no tachycardias noted. She was sent down for an upper GI to be followed by a CAT scan. While in the radiology Department the patient felt more weak and she was instead sent to the ER for evaluation. Patient admits to some mild upper abdominal discomfort. She describes belching. No severe pain. No fevers or chills. Urine was not malodorous and there was no dysuria however it was somewhat cloudy she states. Urinalysis done here does suggest a possible UTI. I believe cultures are pending. - Review of Systems Comment: The patient denies any acute changes in his vision or hearing, no dysphagia or odynophagia, no chest pain or shortness of breath, no dysuria or hematuria, no headache, no runny nose, no rectal bleeding or melena, no unexplained weight loss Past Medical History Past Medical History: GERD/Reflux, Hyperlipidemia, Hypertension, Osteoarthritis (OA), Skin Disorder Additional Past Medical History / Comment(s): migraines, hiatal hernia, rosacea , acne, degenerative disc disease, neuopathy bilateral legs, several radio frequency ablations to back, 15 years of chronic back pain History of Any Multi-Drug Resistant Organisms: None Reported Past Surgical History: Bariatric Surgery, Hysterectomy, Orthopedic Surgery Additional Past Surgical History / Comment(s): lasik, orif rt elbow, rt hip replacement, cataracts, left knee replacement gastric sleeve 01-13-17 Past Anesthesia/Blood Transfusion Reactions: Motion Sickness, Postoperative Nausea & Vomiting (PONV) Past Psychological History: Anxiety Smoking Status: Never smoker Past Alcohol Use History: None Reported Past Drug Use History: None Reported - Past Family History Father Family Medical History: Seizure Disorder Additional Family Medical History / Comment(s): alcoholic, metal plate in head, at 54 Mother Family Medical History: Cancer Additional Family Medical History / Comment(s): cancer of bowel Medications and Allergies Home Medications Medication Instructions Recorded Confirmed Type ALPRAZolam [Xanax] 0.5 mg PO BID 07/03/14 02/18/17 History traMADol HCl [Ultram] 50 - 100 mg PO HS 04/23/15 02/18/17 History Atorvastatin [Lipitor] 40 mg PO HS@1800 03/11/16 02/18/17 History Escitalopram [Lexapro] 20 mg PO DAILY 03/11/16 02/18/17 History Metoprolol Succinate [Toprol XL] 50 mg PO HS 01/13/17 02/18/17 History Multivitamin [Multivitamins Adult 2 tab PO DAILY 02/18/17 02/18/17 History Gummies] Olmesartan/Hydrochlorothiazide 1 tab PO HS@1800 02/18/17 02/18/17 History [Benicar Hct 40-25 mg Tablet] Allergies Allergy/AdvReac Type Severity Reaction Status Date / Time adhesive tape Allergy Rash/Hives Verified 02/18/17 14:05 Penicillins Allergy Rash/Hives Verified 02/18/17 14:05 albuterol AdvReac Unknown Verified 02/18/17 14:05 bandaids Allergy red skin Uncoded 02/02/17 14:54 Surgical - Exam Vital Signs Temp Pulse Resp BP Pulse Ox 96.8 F L 72 20 170/77 99 02/18/17 12:57 02/18/17 12:57 02/18/17 12:57 02/18/17 12:57 02/18/17 12:57 Physical exam: General: Well-developed, well-nourished HEENT: Normocephalic, sclerae nonicteric Abdomen: Nontender, nondistended, incisions clean and dry Extremities: No edema Neuro: Alert and oriented Results - Labs Abnormal Lab Results - Last 24 Hours (Table) 02/18/17 Range/Units 15:00 Urine Ketones 1+ H (Negative) Ur Leukocyte Esterase Large H (Negative) Urine WBC 40 H (0-5) /hpf Urine Bacteria Rare H (None) /hpf Assessment and Plan (1) Dehydration Narrative/Plan: We'll try to obtain cultures from her outpatient urinalysis. Empirically begin antibiotics. Aggressive rehydration. The patient's upper GI and CAT scan will be placed on hold this evening and reordered for tomorrow morning. Patient may require upper endoscopy for symptoms of dysphagia persist. Consult to Dr. Chamberlain as well. Status: Acute
[2017-02-18] MEDS ORDERED: SODIUM CHLORIDE 0.9% 1,000 ML with MVI, ADULT NO.4 WITH VIT K 10 ML, THIAMINE 100 MG, F... IV ONE ×4 (17:38)
[2017-02-18] MEDS: HEPARIN SODIUM,PORCINE 5,000 UNIT/ML 1 ML VIAL SQ SCH ×2 (17:41→23:18)
[2017-02-18] MEDS: D5-0.45% NACL WITH KCL 20MEQ/L 1,000 ML IV SCH (17:41)
[2017-02-18] MEDS ORDERED: HYDROmorphone 1 MG/ML 1 ML SYRINGE IVP PRN (17:46)
[2017-02-18] MEDS: ONDANSETRON 4 MG/2 ML VIAL IVP PRN (19:26)
[2017-02-18] MEDS: ACETAMINOPHEN IV (For NPO) 1,000 MG in EMPTY BAG 1 BAG IVPB PRN (20:39)
[2017-02-19] MEDS: D5-0.45% NACL WITH KCL 20MEQ/L 1,000 ML IV SCH ×4 (05:10→21:25)
[2017-02-19] MEDS: HEPARIN SODIUM,PORCINE 5,000 UNIT/ML 1 ML VIAL SQ SCH ×2 (07:16→15:48)
[2017-02-19] MEDS: PANTOPRAZOLE 40 MG/10 ML VIAL IV SCH (07:16)
[2017-02-19] MEDS: ACETAMINOPHEN IV (For NPO) 1,000 MG in EMPTY BAG 1 BAG IVPB PRN ×3 (07:19→21:25)
[2017-02-19] MEDS ORDERED: LEVOFLOXACIN 500MG-D5W PMX 500 MG in DEXTROSE/WATER 1 100ML.BAG IVPB SCH (08:00)
[2017-02-19 08:05] LABS: Basophils % (A) 1 %; CH 30.8; CHCM 32.3; Eosinophils % (A) 0 %; HDW 2.45; Luc % (Auto) 2; Lymphocytes # (A) 1.4 k/uL (1.0-4.8); Lymphocytes % (A) 26 %; MCH 31.9 pg (25.0-35.0); MCHC 33.3 g/dL (31.0-37.0); MCV 95.7 fL (80.0-100.0); Mean Platelet Volume 8.1; Monocytes # (A) 0.4 k/uL (0-1.0); Monocytes % (A) 7 %; Neutrophils # (A) 3.6 k/uL (1.3-7.7); Neutrophils % (A) 65 %; RBC 3.77 m/uL (3.80-5.40); RDW 13.1 % (11.5-15.5); WBC 5.5 k/uL (3.8-10.6); WBC (Perox) 5.44
[2017-02-19 08:29] LABS: Calcium 9.4 mg/dL (8.4-10.2); Potassium 3.9 mmol/L (3.5-5.1); Total Bilirubin 0.9 mg/dL (0.2-1.3); Total Protein 6.1 g/dL (6.3-8.2)
[2017-02-19] MEDS: SODIUM CHLORIDE 0.9% 1,000 ML with MVI, ADULT NO.4 WITH VIT K 10 ML, THIAMINE 100 MG, F... IV SCH ×4 (10:08)
--- NOTE | 2017-02-19 10:52 | FL ---
EXAMINATION TYPE: FL UGI w esophagus DATE OF EXAM: 02/19/2017 10:31 AM COMPARISON: Previous study dated 01/14/2017. HISTORY: Status post gastric sleeve. TECHNIQUE: A single contrast UGI study is performed. FINDINGS: The patient drank contrast with ease. There is prompt egress of contrast from the esophagus into the gastric sleeve. The ligament of Treitz is in the normal location. The study is similar in a ppearance to the previous examination. Note is made of previous cholecystectomy. IMPRESSION: STATUS POST GASTRIC SLEEVE.
--- NOTE | 2017-02-19 11:38 | P.PN ---
Subjective Principal diagnosis: Dehydration/UTI Patient says she did not sleep well last night because of her restless leg. She did take some pain medications but states it was because of pain in her legs that she usually takes tramadol at home for. This morning she is once again nauseous and did have some belching and maybe even a small amount of emesis after the esophagram. The patient's esophagram appears wide open with no evidence of obstruction however. Her labs show a normal white blood cell count. Creatinine remains elevated. CAT scan is currently pending. Objective - Vital Signs Vital signs: Vital Signs Temp 98.4 F 02/19/17 07:00 Pulse 80 02/19/17 07:00 Resp 12 02/19/17 08:00 BP 135/63 02/19/17 07:00 Pulse Ox 98 02/19/17 07:00 Intake & Output 02/18/17 02/19/17 02/19/17 18:59 06:59 18:59 Intake Total 1450 Balance 1450 Intake: Intake, IV Titration 1450 Amount D5-0.45% NaCl with KCl 150 20Meq/l 1,000 ml @ 150 mls/hr IV .Q6H40M KYLEIGH Rx# :[id number] Sodium Chloride 0.9% 1, 350 000 ml @ 100 mls/hr IV . Q10H STA Rx#:[id number] Sodium Chloride 0.9% 1, 950 000 ml @ 100 mls/hr IV . Q10H7M ONE with Mvi, Adult No.4 with Vit K 10 ml with Thiamine 100 mg with Folic Acid 1 mg Rx#: [id number] Other: Voiding Method Toilet Bedside Commode Bedside Commode Bedside Commode # Voids 1 - Exam Abdomen: Soft, nondistended, nontender, incisions clean and dry - Labs CBC & Chem 7: 02/19/17 07:25 02/19/17 07:25 Labs: Abnormal Lab Results - Last 24 Hours (Table) 02/19/17 02/19/17 Range/Units 07:25 07:25 RBC 3.77 L (3.80-5.40) m/uL Chloride 110 H (98-107) mmol/L Carbon Dioxide 20 L (22-30) mmol/L BUN 18 H (7-17) mg/dL Creatinine 1.28 H (0.52-1.04) mg/dL Glucose 125 H (74-99) mg/dL Total Protein 6.1 L (6.3-8.2) g/dL Assessment and Plan (1) Dehydration Narrative/Plan: Continue antibiotics. Await computed tomography scan results. If the computed tomography scan is normal Will try encouraging increased oral intake including even pured foods. Gradually increase activity level. Dr. Serrato will be covering me in my absence. Status: Acute
--- NOTE | 2017-02-19 12:34 | P.CONS ---
History of Present Illness - Reason for Consult Consult date: 02/19/17 Medical management Requesting physician: Ryan Bain - Chief Complaint Nausea and generalized weakness - History of Present Illness Patient is a 67-year-old patient, patient of Dr. Chamberlain in the outpatient setting , with medical history significant for GERD, hyperlipidemia, hypertension, osteoarthritis, sleep apnea with CPAP, migraines, degenerative disc disease, peripheral neuropathy, chronic back pain, urinary tract infection, and glaucoma. Patient recently underwent laparoscopic sleeve gastrectomy on 2016 and had been following with Dr. Bain in the bariatric clinic on outpatient basis. Post operatively, patient was 7 problems with diarrhea and symptoms of dysphagia. It appears patient's oral intake was minimal. Patient was also seen by Dr. Chamberlain office on Wednesday of this week where she was diagnosed with a urinary tract infection and started on Bactrim which apparently made her more nauseous. Patient was evaluated in the bariatric clinic yesterday where her blood work showed evidence of dehydration. Patient' s was scheduled for an upper GI to be followed by CAT scan. Apparently patient became more weak and was sent to the emergency department for further evaluation. Chest x-ray the emergency department revealed no evidence of acute cardiopulmonary process. Lab work with evidence of acute renal failure suggestive of dehydration. No evidence of leukocytosis or tachycardia. Urinalysis with evidence of urinary tract infection. Patient was hydrated with 1 L of normal saline in the emergency department and started on antibiotics in the form of IV Levaquin. Patient was admitted to the medical floor and underwent upper GI study this morning which showed no evidence of obstruction or leak. Upon examination, patient complains of mostly left groin pain. Patient reports nausea without vomiting. Denies chills, fevers, shortness of breath, chest pain, or leg swelling. Patient is afebrile. Hemodynamically stable. No evidence of leukocytosis. Renal function improved. Patient is scheduled for CT of her abdomen. Past Medical History Past Medical History: GERD/Reflux, Hyperlipidemia, Hypertension, Osteoarthritis (OA), Skin Disorder, Sleep Apnea/CPAP/BIPAP Additional Past Medical History / Comment(s): migraines, hiatal hernia, rosacea , degenerative disc disease, neuopathy bilateral legs, several radio frequency ablations to back, 15 years of chronic back pain, uti, glaucoma History of Any Multi-Drug Resistant Organisms: None Reported Past Surgical History: Appendectomy, Bariatric Surgery, Cholecystectomy, Hysterectomy, Orthopedic Surgery, Tonsillectomy, Tubal Ligation Additional Past Surgical History / Comment(s): lasik, orif rt elbow, rt hip replacement, cataracts, left knee replacement, lap gastric sleeve 01-13-17 Past Anesthesia/Blood Transfusion Reactions: Motion Sickness, Postoperative Nausea & Vomiting (PONV) Past Psychological History: Anxiety Additional Psychological History / Comment(s): pt stated feels well maintained by her medications.. pt lives with spouse and 1 pet dog.lives in a 2 story home that has 3 steps into home, and 14 steps upsatirs., has walker, cane, shower chair, cpap machine. no outside services. 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 Smoking Status: Never smoker Past Alcohol Use History: None Reported Past Drug Use History: None Reported - Past Family History Father Family Medical History: Seizure Disorder Additional Family Medical History / Comment(s): alcoholic, metal plate in head, at 54 Daughter(s) Additional Family Medical History / Comment(s): 19 year old daughter from injuries from motorcycle accident. Mother Family Medical History: Cancer Additional Family Medical History / Comment(s): mom had cancer of bowel. pt's father was an alcoholic and at the age of 54 Medications and Allergies Home Medications Medication Instructions Recorded Confirmed Type ALPRAZolam [Xanax] 0.5 mg PO BID 07/03/14 02/18/17 History traMADol HCl [Ultram] 50 - 100 mg PO HS 04/23/15 02/18/17 History Atorvastatin [Lipitor] 40 mg PO HS@1800 03/11/16 02/18/17 History Escitalopram [Lexapro] 20 mg PO DAILY 03/11/16 02/18/17 History Metoprolol Succinate [Toprol XL] 50 mg PO HS 01/13/17 02/18/17 History Multivitamin [Multivitamins Adult 2 tab PO DAILY 02/18/17 02/18/17 History Gummies] Olmesartan/Hydrochlorothiazide 1 tab PO HS@1800 02/18/17 02/18/17 History [Benicar Hct 40-25 mg Tablet] Allergies Allergy/AdvReac Type Severity Reaction Status Date / Time adhesive tape Allergy Rash/Hives Verified 02/18/17 14:05 Penicillins Allergy Rash/Hives Verified 02/18/17 14:05 albuterol AdvReac Unknown Verified 02/18/17 14:05 bandaids Allergy red skin Uncoded 02/02/17 14:54 Physical Exam Vitals: Vital Signs Temp Pulse Pulse Resp BP BP Pulse Ox 02/19/17 08:00 12 02/19/17 07:00 98.4 F 80 16 135/63 98 02/18/17 22:18 97.5 F L 84 18 131/59 99 02/18/17 17:48 14 02/18/17 16:20 98 F 71 16 153/69 98 02/18/17 16:01 79 16 154/68 94 L Intake and Output 02/18/17 02/19/17 02/19/17 22:59 06:59 14:59 Intake Total 350 1100 Balance 350 1100 Intake: Intake, IV Titration 350 1100 Amount D5-0.45% NaCl with KCl 150 20Meq/l 1,000 ml @ 150 mls/hr IV .Q6H40M KYLEIGH Rx# :[id number] Sodium Chloride 0.9% 1, 350 000 ml @ 100 mls/hr IV . Q10H STA Rx#:[id number] Sodium Chloride 0.9% 1, 950 000 ml @ 100 mls/hr IV . Q10H7M ONE with Mvi, Adult No.4 with Vit K 10 ml with Thiamine 100 mg with Folic Acid 1 mg Rx#: [id number] Other: Voiding Method Toilet Bedside Commode Bedside Commode Bedside Commode # Voids 1 1 GENERAL: Pt awake and alert, lying in bed, appears uncomfortable. HEAD: Atraumatic, normocephalic. EYES: Pupils equal, round, and reactive to light, extraocular movements intact, sclera anicteric, conjunctiva are normal. ENT: Dry mucous membranes. NECK: Supple without lymphadenopathy or JVD. LUNGS: Breath sounds clear to auscultation bilaterally. No wheezes, rales, or rhonchi. HEART: Heart S1, S2, no S3 or S4. Regular rate and rhythm. No murmurs, rubs or gallops. ABDOMEN: Soft, obese, mild generalized tenderness, nondistended, normoactive bowel sounds. No guarding, no rebound. No masses or organomegaly appreciated. EXTREMITIES: Palpable peripheral pulses. No edema. No calf tenderness. NEUROLOGICAL: Pt oriented x 3. Cranial nerves II through XII grossly intact. Strength and sensation grossly intact. PSYCH: Anxious. SKIN: Warm, dry. Joan intertrigo noted to abdominal folds. Results CBC & Chem 7: 02/19/17 07:25 02/19/17 07:25 Labs: Abnormal Lab Results - Last 24 Hours (Table) 02/19/17 02/19/17 Range/Units 07:25 07:25 RBC 3.77 L (3.80-5.40) m/uL Chloride 110 H (98-107) mmol/L Carbon Dioxide 20 L (22-30) mmol/L BUN 18 H (7-17) mg/dL Creatinine 1.28 H (0.52-1.04) mg/dL Glucose 125 H (74-99) mg/dL Total Protein 6.1 L (6.3-8.2) g/dL Chest x-ray: report reviewed Assessment and Plan Plan: Impression and plan: 1. Urinary tract infection. Urine culture pending. Continue IV Levaquin. 2. Nausea associated with abdominal pain and generalized weakness. Patient is scheduled to undergo CT of abdomen. Results pending. Continue supportive treatment and pain management. 3. Acute renal failure, present on admission, suspect secondary to severe dehydration secondary to decreased oral intake and GI losses. Continue IV hydration. 3. History of GERD. Continue PPI. 4. History of hyperlipidemia. 5. History of hypertension. 6. Obstructive sleep apnea with use of CPAP machine. Continue CPAP machine when patient is sleeping. 7. History of degenerative disc disease with chronic back pain. Continue supportive treatment and pain management. 8. History of neuropathy to bilateral lower extremities. 9. History of chronic back pain. 10. History of glaucoma. 11. Obesity. BMI 34.9. 12. History of laparoscopic sleeve gastrectomy on 01/13/2017. 13. Anxiety, stable. 14. Candidal intertrigo. Continue nystatin. Continue to monitor patient. Oral medications currently on hold while patient is nothing by mouth. Continue IV antibiotics. Continue supportive treatment and pain management. Continue GI and DVT prophylaxis. Continue to follow with surgical service. Repeat CBC and BMP in a.m. The above impression and plan have been discussed and directed by Dr. Chamberlain. Dana CRAWFORD acting as scribe for Dr. Chamberlain.
--- NOTE | 2017-02-19 12:39 | CT ---
EXAMINATION TYPE: CT abdomen w con DATE OF EXAM: 02/19/2017 12:30 PM REFERENCE: NONE HISTORY: Pain HISTORY: nausea, vomiting, dehydration REFERENCE: NONE CT DLP: 780.7 mGy Automated exposure control for dose reduction was used. TECHNIQUE: Helical acquisition through the abdomen and pelvis was obtained following the oral ingesti on of without Oral Contrast and following intravenous administration of 80 mL of Visipaque 320. The d kathleen was reformatted in axial, coronal and sagittal projections. FINDINGS: Visualized portions of the lungs are clear. There is no pleural or pericardial fluid. The heart is not enlarged. There is been previous gastric surgery. The gallbladder has been removed. The liver and spleen are normal. There is a 2.3 x 1.8 cm left adrenal mass. Mean Hounsfield value is 28.74. The right adrenal gland is normal. There are 2 simple appearing renal cysts in the right kidney. The more superior cyst measures 2.9 cm. A lower pole cyst measures 2.0 cm. There is a 3.2 cm simple appearing cyst in the mid polar region o f the left kidney. The pancreas appears unremarkable. There is moderate atheromatous calcification of the aorta. There is no significant retroperitoneal adenopathy. Visualized bowel loops are unremarkable. There is degenerative disc disease and a vacuum phenomena at L5-S1. No bony destructive lesion is see n. IMPRESSION: 1. MULTIPLE SIMPLE APPEARING, BILATERAL RENAL CYSTS. 2. 2.3 CM LEFT ADRENAL MASS. 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 3. DEGENERATIVE CHANGE WITHIN THE SPINE. 4. POSTSURGICAL CHANGE.
[2017-02-19 13:34] VITALS: BMI 34.9
[2017-02-19] MEDS: ONDANSETRON 4 MG/2 ML VIAL IVP PRN (21:20)
[2017-02-20] MEDS: SODIUM CHLORIDE 0.9% 1,000 ML with MVI, ADULT NO.4 WITH VIT K 10 ML, THIAMINE 100 MG, F... IV SCH ×8 (01:55→07:21)
[2017-02-20] MEDS: HEPARIN SODIUM,PORCINE 5,000 UNIT/ML 1 ML VIAL SQ SCH ×4 (01:59→23:40)
[2017-02-20] MEDS: ACETAMINOPHEN IV (For NPO) 1,000 MG in EMPTY BAG 1 BAG IVPB PRN (04:44)
[2017-02-20] MEDS: D5-0.45% NACL WITH KCL 20MEQ/L 1,000 ML IV SCH (07:21)
[2017-02-20] MEDS: PANTOPRAZOLE 40 MG/10 ML VIAL IV SCH (07:24)
[2017-02-20] MEDS: LEVOFLOXACIN 250MG-D5W PMX 250 MG in DEXTROSE/WATER 1 50ML.BAG IVPB SCH (07:24)
[2017-02-20 07:30] LABS: Basophils % (A) 0 %; CH 30.6; CHCM 33.3; Eosinophils % (A) 0 %; HCT 33.3 % (34.0-46.0); HDW 2.51; HGB 11.1 gm/dL (11.4-16.0); Luc # (Auto) 0.17; Luc % (Auto) 2; Lymphocytes # (A) 1.4 k/uL (1.0-4.8); Lymphocytes % (A) 19 %; MCH 30.8 pg (25.0-35.0); MCHC 33.4 g/dL (31.0-37.0); MCV 92.2 fL (80.0-100.0); Mean Platelet Volume 6.9; Monocytes # (A) 0.4 k/uL (0-1.0); Monocytes % (A) 5 %; Neutrophils # (A) 5.4 k/uL (1.3-7.7); Neutrophils % (A) 73 %; RBC 3.61 m/uL (3.80-5.40); WBC 7.3 k/uL (3.8-10.6); WBC (Perox) 7.35
[2017-02-20 07:56] LABS: Calcium 9.5 mg/dL (8.4-10.2); Magnesium 1.7 mg/dL (1.6-2.3); Phosphorous 2.7 mg/dL (2.5-4.5); Potassium 3.7 mmol/L (3.5-5.1)
[2017-02-20] MEDS: ONDANSETRON 4 MG/2 ML VIAL IVP PRN ×2 (11:35→18:50)
[2017-02-20] MEDS ORDERED: LORazepam 2 MG/ML SYRINGE IV PRN (12:20)
--- NOTE | 2017-02-20 12:20 | P.PN ---
Progress Note - Text Patient still complaining of some dysphagia. She states she says trouble drinking clear liquids. Her esophagram upper GI was reviewed. There is appears to be no evidence of significant sleeve stricture. On exam her vital signs are stable. Her abdomen soft. Patient will be observed. If she still has significant problems drinking we will perform EGD.
[2017-02-20] MEDS: HYDROcodone/APAP 7.5-325MG 1 EACH TAB PO PRN ×2 (13:08→18:48)
[2017-02-20] MEDS: 1: MVI, ADULT NO.4 WITH VIT K 10 ML, THIAMINE 100 MG, FOLIC ACID 1 MG in SODIUM CHLORIDE IV SCH ×2 (15:12→23:38)
--- NOTE | 2017-02-20 18:36 | PN ---
DATE OF SERVICE: 02/20/2017 I am covering for Dr. Chamberlain. This 67-year-old woman who was admitted with a UTI, also had nausea, vomiting. Patient also complaining of leg pain, back pain. Patient also has significant DJD. The patient also had upper GI series and abdominal CAT scan. The abdominal CAT scan showed multiple simple-appearing bilateral renal cysts and 2.30cm left adrenal mass, possibly adrenal adenoma; otherwise, the upper GI series showed status post gastric sleeve. PAST MEDICAL HISTORY: Reviewed. REVIEW OF SYSTEMS: CARDIOVASCULAR: No angina or palpitations. RESPIRATORY: As mentioned earlier. GI: As mentioned earlier. : As mentioned earlier. MUSCULOSKELETAL: As mentioned earlier, Current medications are reviewed and include: 1. Tylenol 650 every 6 hours p.r.n. 2. [place] 7.5 every 6 hours p.r.n. 3. Heparin 5 subcu q.8. 4. Dilaudid p.r.n. 5. Levaquin 500 mg daily. 6. Ativan 1 mg every 6 hours. 7. Narcan. 8. Zofran. 9. Protonix. 10. Thiamine. PHYSICAL EXAM: The patient is alert and oriented x3. Pulse is 66, blood pressure 141/64, respirations 18, temperature 97.8, pulse ox 96% on room air. HEENT: Conjunctivae normal. NECK: No jugular venous distension. CARDIOVASCULAR: S1 and S2 muffled. RESPIRATORY: Breath sounds diminished in the bases. A few scattered rhonchi. No crackles. ABDOMEN: Soft, nontender. No mass palpable. LEGS: No edema. No swelling. Pain while moving the legs. Bilateral swelling present. NERVOUS SYSTEM: No focal deficits. LABS: Creatinine is 1.20. Other labs are noted. Possible UTI. ASSESSMENT: 1. Urinary tract infection present on admission. 2. Nausea, vomiting, abdominal pain, possible acute gastritis. 3. Back pain and leg pain, possible degenerative joint disease. 4. Acute renal failure possibly secondary to dehydration and diminished p.o. intake. 5. History of gastroesophageal reflux disease. 6. History of hyperlipidemia. 7. Hypertension. 8. Sleep apnea on continuous positive airway pressure. 9. History of degenerative joint disease and chronic back pain. 10. History of neuropathy, bilateral lower extremity. 11. History of chronic back pain. 12. History of glaucoma. 13. History of obesity, 34.9. 14. History of laparoscopic sleeve gastrectomy. 15. Anxiety, stable. 16. Joan intertrigo. RECOMMENDATIONS AND DISCUSSION: Recommend to continue current medications. Continue to monitor, symptomatic treatment. Closely monitor the creatinine. CAT scan of abdomen is noted. The patient continue with the antibiotics. Follow the cultures. Other symptomatic treatment. I would also recommend to rule out the possibility of DVTs and further recommendations to follow. MTDD
--- NOTE | 2017-02-20 20:37 | US ---
EXAMINATION TYPE: US venous doppler duplex LE BI DATE OF EXAM: 02/20/2017 7:41 PM COMPARISON: NONE CLINICAL HISTORY: dvt. right leg pain, hx of right groin pole, rt hip replacement, and left knee rep lacement SIDE PERFORMED: bilateral VESSELS IMAGED: External Iliac Vein (EIV) Common Femoral Vein Deep Femoral Vein Greater Saphenous Vein * Femoral Vein Popliteal Vein Small Saphenous Vein * Proximal Calf Veins (* superficial vessels) Right Leg: Appears negative for DVT Left Leg: Appears negative for DVT IMPRESSION: No evidence of deep venous thrombosis of the bilateral lower extremities.
[2017-02-20] MEDS: METOPROLOL SUCCINATE (ER) 50 MG TAB.ER.24H PO SCH (22:06)
[2017-02-20] MEDS: ALPRAZolam 0.5 MG TAB PO SCH (22:06)
[2017-02-21] MEDS: HYDROcodone/APAP 7.5-325MG 1 EACH TAB PO PRN ×3 (02:42→20:14)
[2017-02-21] MEDS: ALPRAZolam 0.5 MG TAB PO SCH ×2 (07:47→20:15)
[2017-02-21] MEDS: ESCITALOPRAM 20 MG TAB PO SCH (07:47)
[2017-02-21] MEDS: HEPARIN SODIUM,PORCINE 5,000 UNIT/ML 1 ML VIAL SQ SCH ×3 (07:47→23:28)
[2017-02-21] MEDS: LEVOFLOXACIN 250MG-D5W PMX 250 MG in DEXTROSE/WATER 1 50ML.BAG IVPB SCH (07:47)
[2017-02-21] MEDS: PANTOPRAZOLE 40 MG/10 ML VIAL IV SCH (07:48)
[2017-02-21 07:59] LABS: Calcium 9.6 mg/dL (8.4-10.2); Potassium 4.4 mmol/L (3.5-5.1)
[2017-02-21 08:11] LABS: Basophils % (A) 0 %; CH 30.7; CHCM 32.9; Eosinophils % (A) 0 %; HGB 11.7 gm/dL (11.4-16.0); Luc # (Auto) 0.25; Luc % (Auto) 3; Lymphocytes # (A) 3.1 k/uL (1.0-4.8); Lymphocytes % (A) 41 %; MCH 31.2 pg (25.0-35.0); MCHC 33.4 g/dL (31.0-37.0); MCV 93.4 fL (80.0-100.0); Mean Platelet Volume 6.8; Monocytes # (A) 0.5 k/uL (0-1.0); Monocytes % (A) 6 %; Neutrophils # (A) 3.6 k/uL (1.3-7.7); Neutrophils % (A) 48 %; RBC 3.74 m/uL (3.80-5.40); RDW 13.1 % (11.5-15.5); WBC 7.4 k/uL (3.8-10.6); WBC (Perox) 8.03
[2017-02-21] MEDS: 1: MVI, ADULT NO.4 WITH VIT K 10 ML, THIAMINE 100 MG, FOLIC ACID 1 MG in SODIUM CHLORIDE IV SCH ×3 (08:20→22:48)
--- NOTE | 2017-02-21 10:24 | P.PN ---
Progress Note - Text The patient has had limited oral intake. She was able to drink clear liquids yesterday and this morning. She has complaints of back pain and trouble walking due to her restless leg syndrome. On exam her vital signs are stable. Her abdomen soft. The patient will be continued be observed. If she has any issues dysphagia perform EGD. PT consult has been ordered to help her ambulate
[2017-02-21] MEDS: ONDANSETRON 4 MG/2 ML VIAL IVP PRN ×2 (13:20→20:14)
--- NOTE | 2017-02-21 17:48 | PN ---
DATE OF SERVICE: 02/21/2017 I am covering for Dr. Chamberlain. This is a 67-year-old woman who was admitted with UTI, also complaining of abdominal and back pain. Patient also complaining of leg pain. Also ultrasound is negative for DVT. Dr. Serrato and Dr. Bain are following the patient closely. No chest pain or palpitation. No fever. On exam, alert and oriented x3. Pulse is 74, blood pressure 118/69, respirations 18, temperature 97.2, pulse ox is 94% on room air. HEENT: Conjunctivae normal. NECK: No jugular venous distension. CARDIOVASCULAR SYSTEM: S1, S2, muffled. RESPIRATORY: Breath sounds diminished at the bases. No rhonchi, no crackles. ABDOMEN: Soft, nontender, no mass palpable. EXTREMITIES: Legs no edema, no swelling. NERVOUS SYSTEM: No focal deficits. LABS: Creatinine 1.19. ASSESSMENT: 1. Urinary tract infection present on admission. 2. Nausea, vomiting, abdominal pain, possible acute gastritis. 3. Back pain and leg pain, possible degenerative joint disease. 4. Acute renal failure, possibly secondary for dehydration and prerenal factors, diminished oral intake with possibly chronic kidney disease, stage III. 5. History of gastroesophageal reflux disease. 6. History of hyperlipidemia. 7. Hypertension, essential. 8. Sleep apnea on CPAP. 9. History of degenerative joint disease and chronic back pain. 10. History of neuropathy, bilateral lower extremities. 11. History of glaucoma. 12. History of obesity, body mass index of 34.9. 13. History of laparoscopic sleeve gastrectomy. 14. Anxiety, not otherwise, this was stable. 15. Joan intertrigo. 16. FULL CODE. RECOMMENDATION: In this 67-year-old woman who presented with multiple complex medical issues, will monitor the patient closely. Continue with the current medications. Continue with the symptomatic treatment. Repeat labs. Otherwise symptomatic treatment will be obtained. Further recommendation per Surgery including advancement of her diet. Further recommendations to follow.
[2017-02-21] MEDS: METOPROLOL SUCCINATE (ER) 50 MG TAB.ER.24H PO SCH (20:15)
[2017-02-22] MEDS: 1: MVI, ADULT NO.4 WITH VIT K 10 ML, THIAMINE 100 MG, FOLIC ACID 1 MG in SODIUM CHLORIDE IV SCH ×3 (05:31→23:19)
[2017-02-22] MEDS: ALPRAZolam 0.5 MG TAB PO SCH ×2 (07:13→21:48)
[2017-02-22] MEDS: HEPARIN SODIUM,PORCINE 5,000 UNIT/ML 1 ML VIAL SQ SCH ×2 (07:13→17:40)
[2017-02-22] MEDS: PANTOPRAZOLE 40 MG/10 ML VIAL IV SCH (07:13)
[2017-02-22] MEDS: ESCITALOPRAM 20 MG TAB PO SCH (07:13)
[2017-02-22] MEDS: LEVOFLOXACIN 250MG-D5W PMX 250 MG in DEXTROSE/WATER 1 50ML.BAG IVPB SCH (07:13)
[2017-02-22 07:49] LABS: Basophils % (A) 1 %; CH 30.8; CHCM 33.1; Eosinophils # (A) 0.1 k/uL (0-0.7); Eosinophils % (A) 1 %; HCT 32.6 % (34.0-46.0); HDW 2.56; HGB 10.9 gm/dL (11.4-16.0); Luc # (Auto) 0.19; Luc % (Auto) 3; Lymphocytes # (A) 1.7 k/uL (1.0-4.8); Lymphocytes % (A) 30 %; MCH 31.3 pg (25.0-35.0); MCHC 33.5 g/dL (31.0-37.0); MCV 93.3 fL (80.0-100.0); Mean Platelet Volume 7.1; Monocytes # (A) 0.4 k/uL (0-1.0); Monocytes % (A) 7 %; Neutrophils # (A) 3.2 k/uL (1.3-7.7); Neutrophils % (A) 58 %; RDW 13.1 % (11.5-15.5); WBC 5.6 k/uL (3.8-10.6); WBC (Perox) 6.17
[2017-02-22 08:04] LABS: Calcium 9.2 mg/dL (8.4-10.2); Potassium 3.8 mmol/L (3.5-5.1)
--- NOTE | 2017-02-22 14:16 | P.PN ---
Progress Note - Text The patient has been able toward. She had poor oral intake yesterday. However today she has had some increased oral intake of clear liquids. She denies any nausea or abdominal pain. On exam her vital signs are stable. Her abdomen soft. Patient will continue to be encouraged of clear liquids. She is not ready for discharge at this time.
--- NOTE | 2017-02-22 15:04 | XR ---
EXAMINATION TYPE: XR pelvis AP view DATE OF EXAM: 02/22/2017 2:49 PM COMPARISON: 02/16/2014 HISTORY: Pain The osseous structures are intact. No acute fracture is seen. Visualized bowel gas pattern is nonsp ecific. Postsurgical change involving the right hip with soft tissue heterotopic ossification. 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 Mild arthropathy left hip. Calcifications are nonspecific. IMPRESSION: 1. No acute fracture. 2. Postsurgical change right hip
--- NOTE | 2017-02-22 17:24 | PN ---
DATE OF SERVICE: 02/22/2017 This 67-year-old woman who was admitted with UTI also had acute renal failure. The patient also complains of back pain also. Negative for DVT. The patient has been having back injections by Dr. Leach. The patient is followed by Dr. Chamberlain. Dr. Serrato and Dr. Bain are following currently in the hospital. The patient is on clear liquids. On exam, alert and oriented x3. Pulse 50, blood pressure 142/65, respirations 16, temperature 98.1, pulse ox 97% on room air. HEENT: Conjunctivae normal. NECK: NO JVD. CARDIOVASCULAR: S1 and S2 muffled. LUNGS: Breath sounds diminished in the bases. No rhonchi. No crackles. ABDOMEN: Soft, nontender. EXTREMITIES: No edema. No swelling. NERVOUS SYSTEM: No focal deficits. The patient complains of some groin tenderness on the right side. LABS: WBC 5.6, hemoglobin is 10.9. ASSESSMENT: 1. Urinary tract infection, present on admission. 2. Acute renal failure, possibly secondary to dehydration and prerenal factor, diminished oral intake with possible chronic kidney disease stage III underlying. 3. Nausea, vomiting, abdominal pain, possibly acute gastritis. 4. Back pain and leg pain, possible degenerative joint disease. 5. History of gastroesophageal reflux disease. 6. History of hyperlipidemia. 7. Hypertension, essential. 8. History of sleep apnea, on CPAP history. 9. History of degenerative joint disease and chronic back pain. 10. History of neuropathy, bilateral lower extremities. 11. History of glaucoma. 12. History of obesity, body mass index of 34. 13. History of laparoscopic sleeve gastrectomy. 14. Anxiety, not otherwise specified, stable. 15. Joan intertrigo. 16. FULL CODE. RECOMMENDATIONS: Recommend to continue current medications, continue symptomatic treatment. Otherwise, at this time I would recommend a pelvic x-ray also to complete the workup. Otherwise closely follow with surgery. Further recommendations to follow. Recommend to closely follow with Dr. Leach as well as Dr. Chamberlain in the outpatient setting.
[2017-02-22] MEDS ORDERED: LEVOFLOXACIN 250 MG TAB PO SCH (21:00)
[2017-02-22] MEDS: HYDROcodone/APAP 7.5-325MG 1 EACH TAB PO PRN (21:48)
[2017-02-22] MEDS: METOPROLOL SUCCINATE (ER) 50 MG TAB.ER.24H PO SCH (21:48)
[2017-02-23] MEDS: HEPARIN SODIUM,PORCINE 5,000 UNIT/ML 1 ML VIAL SQ SCH ×2 (00:31→08:26)
[2017-02-23 08:15] LABS: Basophils % (A) 1 %; CHCM 34.3; Eosinophils # (A) 0.1 k/uL (0-0.7); Eosinophils % (A) 2 %; HCT 33.8 % (34.0-46.0); HDW 2.61; HGB 11.4 gm/dL (11.4-16.0); Luc # (Auto) 0.12; Luc % (Auto) 2; Lymphocytes # (A) 1.8 k/uL (1.0-4.8); Lymphocytes % (A) 33 %; MCH 30.8 pg (25.0-35.0); MCHC 33.9 g/dL (31.0-37.0); MCV 90.8 fL (80.0-100.0); Mean Platelet Volume 6.9; Monocytes # (A) 0.4 k/uL (0-1.0); Monocytes % (A) 7 %; Neutrophils % (A) 55 %; RBC 3.72 m/uL (3.80-5.40); RDW 13.5 % (11.5-15.5); WBC 5.5 k/uL (3.8-10.6)
[2017-02-23 08:26] LABS: Calcium 9.6 mg/dL (8.4-10.2)
[2017-02-23] MEDS: ALPRAZolam 0.5 MG TAB PO SCH (08:26)
[2017-02-23] MEDS: PANTOPRAZOLE 40 MG/10 ML VIAL IV SCH (08:27)
[2017-02-23] MEDS: ESCITALOPRAM 20 MG TAB PO SCH (08:27)
[2017-02-23 08:35] LABS: Potassium 3.8 mmol/L (3.5-5.1)
[2017-02-23 08:42] VITALS: BP 151/67; PULSE 50; RESP 16; TEMP 98.1
[2017-02-23] MEDS ORDERED: LEVOFLOXACIN 250 MG TAB PO SCH ×2 (09:00→21:00)
[2017-02-23] MEDS: 1: MVI, ADULT NO.4 WITH VIT K 10 ML, THIAMINE 100 MG, FOLIC ACID 1 MG in SODIUM CHLORIDE IV SCH (09:09)
--- NOTE | 2017-02-23 13:17 | P.DS ---
Providers Date of admission: 02/18/17 15:24 Expected date of discharge: 02/23/17 Attending physician: Ryan Bain Consults: 02/18/17 15:41 Consult Physician Routine Consulting Provider: Rogerio Chamberlain Consult Reason/Comments: Medical management Do you want consulting provider notified?: Yes Primary care physician: Rogerio Chamberlain [facility] Course: This is a 67-year-old female with Dr. Pedroza service. Patient had issues with dysphagia and leg pain. Please see chart for details. On the day of discharge the patient was tolerating a diet. She had no abdominal complaints. Patient Condition at Discharge: Good Plan - Discharge Summary Discharge Medication List ALPRAZolam [Xanax] 0.5 mg PO BID 07/03/14 [History] traMADol HCl [Ultram] 50 - 100 mg PO HS 04/23/15 [History] Atorvastatin [Lipitor] 40 mg PO HS@1800 03/11/16 [History] Escitalopram [Lexapro] 20 mg PO DAILY 03/11/16 [History] Metoprolol Succinate [Toprol XL] 50 mg PO HS 01/13/17 [History] Omeprazole 20 mg PO DAILY #90 cap 01/15/17 [Rx] Multivitamin [Multivitamins Adult Gummies] 2 tab PO DAILY 02/18/17 [History] Olmesartan/Hydrochlorothiazide [Benicar Hct 40-25 mg Tablet] 1 tab PO HS@1800 [History] Follow up Appointment(s)/Referral(s): Rogerio Chamberalin DO [Primary Care Provider] - 03/09/17 2:00 pm Ryan Bain MD [Medical Doctor] - 1 Week Ambulatory/Diagnostic Orders: Basic Metabolic Panel [LAB.AMB] Location: Determined By Patient Complete Blood Count w/diff [LAB.AMB] Location: Determined By Patient
--- NOTE | 2017-02-23 18:20 | PN ---
DATE OF SERVICE: 02/23/2017 I am covering for Dr. Chamberlain. This 67-year-old woman was admitted with a UTI, also complaining of back pain and acute renal failure. The patient improved significantly. No chest pain or palpitations. No fever. On exam, alert and oriented x3. Pulse rate 50, blood pressure 151/67, respirations 16, temperature 98.1, pulse ox 98% on room air. HEENT: Conjunctivae normal. NECK: No jugular venous distension. CARDIOVASCULAR: S1 and S2 muffled. RESPIRATORY: Breath sounds diminished in the bases. No rhonchi. No crackles. ABDOMEN: Soft, nontender. No mass palpable. LEGS: No edema. NERVOUS SYSTEM: Nonfocal. LABS: WBC 9.5, hemoglobin 11.4. ASSESSMENT: 1. Urinary tract infection, present on admission. 2. Acute renal failure, possibly secondary to dehydration and prerenal factors, diminished p.o. intake with possible chronic kidney disease stage 3 underlying. 3. Nausea, vomiting, abdominal pain, possible acute gastritis. 4. Back pain and leg pain, possible degenerative joint disease. 5. History of gastroesophageal reflux disease. 6. History of hyperlipidemia. 7. Hypertension, essential. 8. History of sleep apnea on continuous positive airway pressure. 9. History of degenerative joint disease and chronic back pain. 10. History of neuropathy, bilateral lower extremities. 11. History of glaucoma. 12. Obesity, body mass index of 34. 13. History of laparoscopic sleeve gastrectomy. 14. Anxiety, not otherwise specified, stable. 15. [place] intertrigo. 16. FULL CODE. RECOMMENDATIONS AND DISCUSSION: In this 67-year-old woman who presented with multiple medical issues, at this time I would recommend to continue with the current medications and symptomatic treatment. Dr. Serrato is planning for patient to be discharged. The creatinine has improved significantly. I recommend to closely follow up with Dr. Chamberlain in the outpatient setting and also with Dr. Leach orthopedics for the back pain as well.
== END 2017-02-23 14:00 | disposition home or self-care (01) ==
LOC: EC 12:30 → 5MS5E 15:24 → INTOOBSV 15:24 → 5MS5E 15:55
PROVIDERS: ADMIT Surgery; ATTEND Surgery
DX: E86.0 Dehydration (principal); R13.10 Dysphagia, unspecified; N39.0 Urinary tract infection, site not specified; R11.2 Nausea with vomiting, unspecified; B37.2 Candidiasis of skin and nail; E27.9 Disorder of adrenal gland, unspecified; N28.1 Cyst of kidney, acquired; E66.9 Obesity, unspecified; Z68.34 Body mass index [BMI] 34.0-34.9, adult; E78.5 Hyperlipidemia, unspecified; F41.9 Anxiety disorder, unspecified; G25.81 Restless legs syndrome; G47.30 Sleep apnea, unspecified; I10 Essential (primary) hypertension; K21.9 Gastro-esophageal reflux disease without esophagitis; M19.90 Unspecified osteoarthritis, unspecified site; N17.9 Acute kidney failure, unspecified; R62.7 Adult failure to thrive; Z79.899 Other long term (current) drug therapy; Z88.0 Allergy status to penicillin; Z88.8 Allergy status to other drugs, medicaments and biological substances; Z91.048 Other nonmedicinal substance allergy status; M54.9 Dorsalgia, unspecified; G89.29 Other chronic pain; G62.9 Polyneuropathy, unspecified; M51.37 Other intervertebral disc degeneration, lumbosacral region; R14.2 Eructation; M79.606 Pain in leg, unspecified; R26.2 Difficulty in walking, not elsewhere classified; Z90.3 Acquired absence of stomach [part of]
CPT/HCPCS: 36415; 94760; 93005; 97161; 80053; 80048 ×4; 82550; 82553; 83735 ×2; 84100; 84550; 84484; 85025 ×5; 85610; 85730; 87040; 87086; 71020; 81001; 72170; 74240; 93970; 74160; 99285; 96375; 96361; G0378 ×6; J2060; J1644 ×6; J3411 ×4; Q9967 ×2; J2405 ×4; J1956 ×4; J0131 ×3; C9113 ×5; 82150; 85027; 96366; 96367; 96368; 96372; 96376

== ENCOUNTER → 2017-02-18 | Outpatient (CLI) | payer MEDICARE, OTHER ==
[2017-02-18 12:13] LABS: CH 30.7; CHCM 33.1; HCT 42.4 % (34.0-46.0); HDW 2.59; HGB 14.1 gm/dL (11.4-16.0); MCHC 33.2 g/dL (31.0-37.0); MCV 93.2 fL (80.0-100.0); Mean Platelet Volume 7.2; RBC 4.55 m/uL (3.80-5.40); RDW 12.9 % (11.5-15.5)
[2017-02-18 12:34] LABS: Calcium 10.6 mg/dL (8.4-10.2); Potassium 4.5 mmol/L (3.5-5.1); Total Protein 7.1 g/dL (6.3-8.2)
== END | disposition home or self-care (01) ==
LOC: PROCWHC3 11:26
PROVIDERS: ATTEND Surgery
DX: R10.11 Right upper quadrant pain (principal); R10.12 Left upper quadrant pain; E86.0 Dehydration; E66.01 Morbid (severe) obesity due to excess calories; R13.10 Dysphagia, unspecified
CPT/HCPCS: 36415; 80053; 82150; 85027

== ENCOUNTER → 2017-03-02 | Outpatient (CLI) | payer MEDICARE, OTHER ==
[2017-03-02 15:00] VITALS: BP 112/74; PULSE 74; RESP 20; TEMP 97.3; BMI 32.7
--- NOTE | 2017-03-02 15:07 | P.BASOAP ---
Subjective Principal diagnosis: Morbid obesity Patient doing well today. She was hospitalized about a week ago for dehydration. She is dramatically improved her liquid intake and is now approximately 80 ounces per day. She still struggles to certain degree with her intake of solid foods and protein. That does seem to be improving however. She feels weak still she takes naps frequently. She was sent home on her diuretic medication which is being held now. Denies abdominal pain. No heartburn. No vomiting. Signs are stable. Blood pressure 112/72. Objective - Vital Signs Vital signs: Vital Signs Temp 97.3 F L 03/02/17 14:40 Pulse 74 03/02/17 14:40 Resp 20 03/02/17 14:40 BP 112/74 03/02/17 14:40 Pulse Ox Intake & Output 03/01/17 03/02/17 03/02/17 18:59 06:59 18:59 Weight 89.267 kg - Exam Abdomen: Soft, nontender, nondistended Assessment/Plan (1) Morbid obesity Narrative/Plan: We'll have the patient seen once again by the dietitian today. Continue working on protein intake and optimizing liquid intake. Increase activity levels. We'll ordered the patient's Benicar for now until she is seen by her primary care physician next week. Continue antiacid therapy. Plan: Date: 03/02/17 Initial Weight: 100.834 kg Initial BMI: 37.0 Current Weight: 89.267 kg Current BMI: 32.7 Type of Surgery: Total Volume in Band: Previous Volume: Volume Removed: Volume Added: Band Size:
== END | disposition home or self-care (01) ==
LOC: BARWHC3 14:32
PROVIDERS: ATTEND Surgery
DX: E66.01 Morbid (severe) obesity due to excess calories (principal)
CPT/HCPCS: 97803; G0463; 99211

== ENCOUNTER → 2017-03-16 | Outpatient (CLI) | payer MEDICARE, OTHER ==
[2017-03-16 14:07] VITALS: BP 132/76; PULSE 83; TEMP 97.7; BMI 32.1
[2017-03-16 14:27] VITALS: RESP 20
--- NOTE | 2017-03-16 14:27 | P.BASOAP ---
Subjective Principal diagnosis: Morbid obesity Patient doing much better at this time. She is tolerating more volume of food and is also doing better with her liquid intake. Her weight loss is approximate 4 pounds in the last 2 weeks. She states that when she drinks too fast she feels it catching and this tells her to slow down her drinking volume. No vomiting. No heartburn. Objective - Vital Signs Vital signs: Vital Signs Temp 97.7 F 03/16/17 14:03 Pulse 83 03/16/17 14:03 Resp BP 132/76 03/16/17 14:03 Pulse Ox Intake & Output 03/15/17 03/16/17 03/16/17 18:59 06:59 18:59 Weight 87.543 kg - Exam Abdomen: Soft, nontender, nondistended Assessment/Plan (1) Morbid obesity Narrative/Plan: Continue dietary and exercise regimen. Gradually increase volume foods. Follow -up one month in the office. We'll check three-month lab work at that time. Plan: Date: 03/16/17 Initial Weight: 100.834 kg Initial BMI: 37.0 Current Weight: 87.543 kg Current BMI: 32.1 Type of Surgery: Total Volume in Band: Previous Volume: Volume Removed: Volume Added: Band Size:
== END ==
LOC: BARWHC3 13:26
PROVIDERS: ATTEND Surgery
DX: E66.01 Morbid (severe) obesity due to excess calories (principal)
CPT/HCPCS: 99211

== ENCOUNTER → 2017-05-04 | Outpatient (CLI) | payer MEDICARE, OTHER ==
[2017-05-04 14:57] VITALS: BP 145/67; PULSE 73; RESP 20; TEMP 98; BMI 29.1
--- NOTE | 2017-05-04 15:29 | P.BASOAP ---
Subjective Principal diagnosis: Morbid obesity Patient seems to be doing better. Her nausea is much improved. She is tolerating more variety of foods. She still complains of some belching. Weight from 193 down to 180 today. Occasional heartburn. She is taking Prilosec once daily. She is due for three-month lab work today. Objective - Vital Signs Vital signs: Vital Signs Temp 98 F 05/04/17 14:48 Pulse 73 05/04/17 14:48 Resp 20 05/04/17 14:48 BP 145/67 05/04/17 14:48 Pulse Ox Intake & Output 05/03/17 05/04/17 05/04/17 18:59 06:59 18:59 Weight 81.873 kg - Exam Abdomen: Soft, nontender, nondistended Assessment/Plan (1) Morbid obesity Narrative/Plan: Check three-month labs today. See dietary today. Increase Prilosec for the next 2-4 weeks to twice daily dosing. Follow-up 4-6 weeks. Plan: Date: 05/04/17 Initial Weight: 100.834 kg Initial BMI: 35.9 Current Weight: 81.873 kg Current BMI: 29.1 Type of Surgery: Total Volume in Band: Previous Volume: Volume Removed: Volume Added: Band Size:
[2017-05-04 15:52] LABS: CH 31.7; CHCM 33.1; HCT 45.7 % (34.0-46.0); HDW 2.59; HGB 14.9 gm/dL (11.4-16.0); MCH 31.4 pg (25.0-35.0); MCHC 32.6 g/dL (31.0-37.0); MCV 96.2 fL (80.0-100.0); Mean Platelet Volume 7.2; RBC 4.75 m/uL (3.80-5.40); RDW 13.3 % (11.5-15.5); WBC 8.3 k/uL (3.8-10.6)
[2017-05-04 16:00] LABS: ALT 49 U/L (9-52); AST 38 U/L (14-36); Alkaline Phosphatase 73 U/L (38-126); Anion Gap 12 mmol/L; Blood Urea Nitrogen 13 mg/dL (7-17); Calcium 10.6 mg/dL (8.4-10.2); Carbon Dioxide 27 mmol/L (22-30); Chloride 107 mmol/L (98-107); Glucose 113 mg/dL (74-99); Iron 64 ug/dL (37-170); Non-African American GFR(MDRD) 55 (>60 ml/min/1.73 sqM); Potassium 4.7 mmol/L (3.5-5.1); Sodium 146 mmol/L (137-145); Total Bilirubin 0.9 mg/dL (0.2-1.3); Total Protein 7.3 g/dL (6.3-8.2)
[2017-05-04 17:05] LABS: Vitamin B12 974 pg/mL
== END | disposition home or self-care (01) ==
LOC: BARWHC3 13:52
PROVIDERS: ATTEND Surgery
DX: Z48.815 Encounter for surgical aftercare following surgery on the digestive system (principal); E66.01 Morbid (severe) obesity due to excess calories; E55.9 Vitamin D deficiency, unspecified; Z71.3 Dietary counseling and surveillance; Z68.29 Body mass index [BMI] 29.0-29.9, adult
CPT/HCPCS: 84425; 80053; 82607; 82746; 83540; 85027; 82306; 97803; 36415; G0463; 99211

== ENCOUNTER → 2017-06-29 | Outpatient (CLI) | payer MEDICARE, OTHER ==
[2017-06-29 12:57] VITALS: BP 113/60; PULSE 63; RESP 20; TEMP 98.3; BMI 26.6
--- NOTE | 2017-06-29 13:15 | P.BASOAP ---
Subjective Principal diagnosis: Morbid obesity Patient is 5-1/2 months post gastrectomy. She continues to lose weight. She went from 180-168 in the last 6 weeks. Overall she is doing fairly well. She does have some mild discomfort at times with certain food items. She says it varies which foods. She is still taking her antiacids. Nausea is improved. Protein intake today seems to be worse when questioning her compared to before. She says she cannot tolerate any protein supplementation because of the taste. Her lab values from last visit were reviewed. Her back pain is much improved. Only mild reflux symptoms. Objective - Vital Signs Vital signs: Vital Signs Temp 98.3 F 06/29/17 12:52 Pulse 63 06/29/17 12:52 Resp 20 06/29/17 12:52 BP 113/60 06/29/17 12:52 Pulse Ox Intake & Output 06/28/17 06/29/17 06/29/17 18:59 06:59 18:59 Weight 76.34 kg - Exam Abdomen: Soft, nontender, nondistended Assessment/Plan (1) Morbid obesity Narrative/Plan: Continue exercise and dietary regimen. The patient already met with the dietitian today and a variety of different options for improving her protein intake were discussed. Continue antiacid therapy. Follow-up visit in 6 weeks. We'll check 6 months lab work at that time. Plan: Date: 06/29/17 Initial Weight: 100.834 kg Initial BMI: 35.1 Current Weight: 76.34 kg Current BMI: 26.6 Type of Surgery: Total Volume in Band: Previous Volume: Volume Removed: Volume Added: Band Size:
== END | disposition home or self-care (01) ==
LOC: BARWHC3 12:36
PROVIDERS: ATTEND Surgery
DX: E66.01 Morbid (severe) obesity due to excess calories (principal)
CPT/HCPCS: 97803; G0463; 99211

== ENCOUNTER → 2017-10-05 | Outpatient (CLI) | payer MEDICARE, OTHER ==
[2017-10-05 15:57] VITALS: BP 133/86; PULSE 57; TEMP 98; BMI 25.9
--- NOTE | 2017-10-05 16:33 | P.BASOAP ---
Subjective Progress Note Date: 10/05/17 Principal diagnosis: Morbid obesity Patient doing better today. Mild reflux symptoms at times. 4 pounds of weight loss. Rash is better after being seen and treated by dermatology. Recent 6 month labs were reviewed. Her calcium level was only slightly elevated. Objective - Vital Signs Vital signs: Vital Signs Temp 98.0 F 10/05/17 15:52 Pulse 57 L 10/05/17 15:52 Resp BP 133/86 10/05/17 15:52 Pulse Ox Intake & Output 10/04/17 10/05/17 10/05/17 18:59 06:59 18:59 Weight 70.76 kg - Exam Abdomen: Soft, nontender, nondistended Assessment/Plan (1) Morbid obesity Narrative/Plan: Continue dietary and exercise regimen. Continue monitoring pannicular rash. Plan follow-up in 6-8 weeks. Plan: Date: 10/05/17 Initial Weight: 100.834 kg Initial BMI: 37.0 Current Weight: 70.76 kg Current BMI: 25.9 Type of Surgery: Total Volume in Band: Previous Volume: Volume Removed: Volume Added: Band Size:
== END ==
LOC: BARWHC3 15:14
PROVIDERS: ATTEND Surgery
DX: E66.01 Morbid (severe) obesity due to excess calories (principal); Z68.25 Body mass index [BMI] 25.0-25.9, adult
CPT/HCPCS: 99211

== ENCOUNTER → 2017-12-14 | Outpatient (CLI) | payer MEDICARE, OTHER ==
[2017-12-14 14:38] VITALS: BMI 25.2
--- NOTE | 2017-12-14 15:01 | P.BASOAP ---
Subjective Progress Note Date: 12/14/17 Principal diagnosis: Morbid obesity Patient doing well at this time. She has lost proximally 4 pounds. GERD symptoms are improved. Denies nausea or vomiting. Eating slightly more than she had been previously. Still having issues with a rash beneath her pannus. Objective - Vital Signs Vital signs: Intake & Output 12/13/17 12/14/17 12/14/17 18:59 06:59 18:59 Weight 68.81 kg - Exam Abdomen: Soft, nontender, nondistended Assessment/Plan (1) Morbid obesity Narrative/Plan: continue diet and exercise regimen. check one year labs next visit. Follow-up 6 weeks. Plan plastic surgery evaluation for panniculectomy following that. Plan: Date: Initial Weight: 100.834 kg Initial BMI: Current Weight: 68.81 kg Current BMI: 25.2 Type of Surgery: Total Volume in Band: Previous Volume: Volume Removed: Volume Added: Band Size:
[2017-12-15 10:32] VITALS: BP 129/77; PULSE 62; RESP 16; TEMP 97.7
== END | disposition home or self-care (01) ==
LOC: BARWHC3 13:39
PROVIDERS: ATTEND Surgery
DX: Z48.815 Encounter for surgical aftercare following surgery on the digestive system (principal); E66.01 Morbid (severe) obesity due to excess calories; Z68.25 Body mass index [BMI] 25.0-25.9, adult; Z71.3 Dietary counseling and surveillance
CPT/HCPCS: 97803; G0463; 99211

== ENCOUNTER → 2018-02-01 | Outpatient (CLI) | payer MEDICARE, OTHER ==
[2018-02-01 14:37] VITALS: BP 136/79; PULSE 55; TEMP 97.7; BMI 25.1
--- NOTE | 2018-02-01 16:52 | P.BASOAP ---
Subjective Progress Note Date: 02/01/18 Principal diagnosis: Morbid obesity Patient doing well. Still having a rash at the pannus. Her primary care physician checked her labs recently and her calcium was slightly elevated. No nausea or vomiting. No reflux. Objective - Vital Signs Vital signs: Vital Signs Temp 97.7 F 02/01/18 14:34 Pulse 55 L 02/01/18 14:34 Resp BP 136/79 02/01/18 14:34 Pulse Ox Intake & Output 01/31/18 02/01/18 02/01/18 18:59 06:59 18:59 Weight 68.492 kg - Exam Abdomen: Soft, nontender, nondistended Assessment/Plan (1) Morbid obesity Narrative/Plan: Will make appointment for the patient see plastic surgery regarding possible panniculectomy. Continue dietary and exercise regimen. Plan: Date: 02/01/18 Initial Weight: 100.834 kg Initial BMI: 37.0 Current Weight: 68.492 kg Current BMI: 25.1 Type of Surgery: Total Volume in Band: Previous Volume: Volume Removed: Volume Added: Band Size:
== END | disposition home or self-care (01) ==
LOC: BARWHC3 13:43
PROVIDERS: ATTEND Surgery
DX: E66.01 Morbid (severe) obesity due to excess calories (principal); Z68.25 Body mass index [BMI] 25.0-25.9, adult
CPT/HCPCS: 99211

== ENCOUNTER 2018-02-16 14:06 | Emergency (ER) | payer MEDICARE, OTHER ==
[2018-02-16 15:50] LABS: Albumin 4.3 g/dL (3.5-5.0); Calcium 10.5 mg/dL (8.4-10.2); Potassium 3.5 mmol/L (3.5-5.1); Total Bilirubin 0.9 mg/dL (0.2-1.3); Total Protein 7.1 g/dL (6.3-8.2)
[2018-02-16 15:54] LABS: Appearance,Urine Cloudy (Clear); Bilirubin,Urine Negative (Negative); Blood,Urine Negative (Negative); Color,Urine Light Yellow; Glucose,Urine (UA) Negative (Negative); Ketones,Urine Negative (Negative); Leukocyte Esterase,Urine Moderate (Negative); Mucus,Urine Rare /hpf; Nitrite,Urine Negative (Negative); PH, Urine 5.5 (5.0-8.0); Protein,Urine Negative (Negative); RBC,Urine 1 /hpf (0-5); Specific Gravity,Urine 1.007 (1.001-1.035); Squamous Epithelial Cell,Urine <1 /hpf (0-4); Urobilinogen,Urine <2.0 mg/dL (<2.0); WBC,Urine 6 /hpf (0-5)
[2018-02-16] MEDS ORDERED: MORPHINE SULFATE/PF 10MG/10ML VL IVP STA (15:54)
[2018-02-16] MEDS ORDERED: RX INFO: IV CONTRAST WAS GIVEN 1 EACH MISC MISCELLANE PRN (15:54)
[2018-02-16 15:58] LABS: Basophils # (A) 0.1 k/uL (0-0.2); Basophils % (A) 1 %; Eosinophils # (A) 0.1 k/uL (0-0.7); Eosinophils % (A) 1 %; HCT 43.1 % (34.0-46.0); HGB 14.9 gm/dL (11.4-16.0); Lymphocytes # (A) 3.9 k/uL (1.0-4.8); Lymphocytes % (A) 43 %; MCH 31.5 pg (25.0-35.0); MCHC 34.6 g/dL (31.0-37.0); Mean Platelet Volume 6.8; Monocytes # (A) 0.5 k/uL (0-1.0); Monocytes % (A) 5 %; Neutrophils # (A) 4.2 k/uL (1.3-7.7); Neutrophils % (A) 47 %; Platelet Count 359 k/uL (150-450); RBC 4.74 m/uL (3.80-5.40); RDW 11.8 % (11.5-15.5); WBC 8.9 k/uL (3.8-10.6)
[2018-02-16 16:32] VITALS: RESP 18
--- NOTE | 2018-02-16 17:27 | CT ---
EXAMINATION TYPE: CT abdomen pelvis w con DATE OF EXAM: 02/16/2018 COMPARISON: 02/19/2017 HISTORY: Pelvic pain. CT DLP: 1234 mGycm Automated exposure control for dose reduction was used. TECHNIQUE: Helical acquisition of images was performed from the lung bases through the pelvis. CONTRAST: Performed without Oral Contrast and with IV Contrast, patient injected with 100 mL of Isovue M300. FINDINGS: Lung bases are clear of consolidation. Heart size is normal. There is no pericardial effusion. There is no pleural effusion. There are clips from bariatric surgery. Liver shows no focal defect. There are clips from cholecystec joanie. Spleen is normal. There is no sign of pancreatic mass. There is no hydronephrosis. There is a 2 cm low-density rounded left adrenal mass. There are bilatera l renal cortical cysts that measure up to 4 cm. There is no hydronephrosis. Ureters are not dilated. There is no retroperitoneal adenopathy. There is no ascites. I see no intestinal wall thickening. The re are no dilated loops. Bladder distends smoothly. There is a right hip prosthesis. There is fairly normal fecal pattern. I see no intestinal wall thickening. There is no sign of a bowel obstruction. T here is no evidence of pelvic mass. There is a small hiatal hernia. I see no bony destructive process . IMPRESSION: RENAL CORTICAL CYSTS. LOW-DENSITY STABLE LEFT ADRENAL MASS CONSISTENT WITH BENIGN ETIOLOGY. SMALL HIATAL HERNIA. NO SIGN OF AN ACUTE ABDOMEN AND PELVIS. NO ADVERSE CHANGE COMPARED TO OLD EXAM. ATHEROSCLEROTIC VASCULAR DISEASE. I DO NOT SEE A CAUSE FOR PELVIC PAIN.
--- NOTE | 2018-02-16 18:05 | ED ---
Abdominal Pain HPI - General Chief Complaint: Abdominal Pain Stated Complaint: stomach pain Time Seen by Provider: 02/16/18 15:33 Source: patient Mode of arrival: ambulatory Limitations: no limitations - History of Present Illness Initial Comments: Patient complains of abdominal pain for couple days. Her symptoms are getting worse. She has no back pain. She has pain in the lower abdominal area. It does not radiate anywhere. She has no chest or back pain. She has no shortness of breath. She has no lightheadedness or dizziness. She denies sick contacts or travel. Nothing makes her symptoms better or worse. She has taken no medication for the symptoms. She was not doing anything when this began. - Related Data Home Medications Medication Instructions Recorded Confirmed ALPRAZolam [Xanax] 0.5 mg PO BID 07/03/14 02/16/18 traMADol HCl [Ultram] 50 - 100 mg PO HS 04/23/15 02/16/18 Atorvastatin [Lipitor] 40 mg PO DAILY 03/11/16 02/16/18 Escitalopram [Lexapro] 20 mg PO DAILY 03/11/16 02/16/18 Metoprolol Succinate (ER) [Toprol 25 mg PO HS 02/16/18 02/16/18 Xl] Previous Rx's Medication Instructions Recorded Omeprazole 20 mg PO DAILY #90 cap 01/15/17 Nitrofurantoin Monohyd/M-Cryst 100 mg PO Q12HR #20 cap 02/16/18 [Macrobid] Allergies Allergy/AdvReac Type Severity Reaction Status Date / Time adhesive tape Allergy Rash/Hives Verified 02/16/18 16:04 Penicillins Allergy Rash/Hives Verified 02/16/18 16:04 albuterol AdvReac Unknown Verified 02/16/18 16:04 bandaids Allergy red skin Uncoded 02/16/18 14:45 Review of Systems ROS Statement: Those systems with pertinent positive or pertinent negative responses have been documented in the HPI. ROS Other: All systems not noted in ROS Statement are negative. Past Medical History Past Medical History: GERD/Reflux, Hyperlipidemia, Hypertension, Osteoarthritis (OA), Skin Disorder, Sleep Apnea/CPAP/BIPAP Additional Past Medical History / Comment(s): migraines, hiatal hernia, rosacea , degenerative disc disease, neuopathy bilateral legs, several radio frequency ablations to back, 15 years of chronic back pain, uti, glaucoma, hospitalized for dehydration beginning of February 2017. History of Any Multi-Drug Resistant Organisms: None Reported Past Surgical History: Appendectomy, Bariatric Surgery, Cholecystectomy, Hysterectomy, Orthopedic Surgery, Tonsillectomy, Tubal Ligation Additional Past Surgical History / Comment(s): lasik, orif rt elbow, rt hip replacement, cataracts, left knee replacement, lap gastric sleeve 01-13-17 Past Anesthesia/Blood Transfusion Reactions: Motion Sickness, Postoperative Nausea & Vomiting (PONV) Past Psychological History: Anxiety Smoking Status: Never smoker Past Alcohol Use History: None Reported Past Drug Use History: None Reported - Past Family History Father Family Medical History: Seizure Disorder Additional Family Medical History / Comment(s): alcoholic, metal plate in head, at 54 Daughter(s) Additional Family Medical History / Comment(s): 19 year old daughter from injuries from motorcycle accident. Mother Family Medical History: Cancer Additional Family Medical History / Comment(s): mom had cancer of bowel. pt's father was an alcoholic and at the age of 54 General Exam Limitations: no limitations General appearance: alert, in no apparent distress Head exam: Present: atraumatic, normocephalic, normal inspection Eye exam: Present: normal appearance, PERRL, EOMI. Absent: scleral icterus, conjunctival injection, periorbital swelling ENT exam: Present: normal exam, mucous membranes moist Neck exam: Present: normal inspection. Absent: tenderness, meningismus, lymphadenopathy Respiratory exam: Present: normal lung sounds bilaterally. Absent: respiratory distress, wheezes, rales, rhonchi, stridor Cardiovascular Exam: Present: regular rate, normal rhythm, normal heart sounds. Absent: systolic murmur, diastolic murmur, rubs, gallop, clicks GI/Abdominal exam: Present: soft, normal bowel sounds. Absent: distended, tenderness, guarding, rebound, rigid Extremities exam: Present: normal inspection, full ROM, normal capillary refill. Absent: tenderness, pedal edema, joint swelling, calf tenderness Back exam: Present: normal inspection Neurological exam: Present: alert, oriented X3, CN II-XII intact Psychiatric exam: Present: normal affect, normal mood Skin exam: Present: warm, dry, intact, normal color. Absent: rash Course Vital Signs 02/16/18 02/16/18 14:42 16:31 Temperature 97.2 F L Pulse Rate 63 52 L Respiratory 16 18 Rate Blood Pressure 159/83 179/81 O2 Sat by Pulse 98 99 Oximetry Medical Decision Making - Medical Decision Making Patient complains of abdominal pain. She has a history of gastric surgery. Therefore I obtained a CT of the abdomen and pelvis. This was negative for any acute process per radiology. Serum laboratory values are all normal. Troponin is negative. Urinalysis is positive for infection. I will write her a prescription for antibiotic. She is tolerating oral intake and is feeling better. She is stable for discharge. - Lab Data Result diagrams: 02/16/18 15:23 02/16/18 15:23 Lab Results 02/16/18 02/16/18 02/16/18 Range/Units 15:14 15:23 15:23 WBC 8.9 (3.8-10.6) k/uL RBC 4.74 (3.80-5.40) m/uL Hgb 14.9 (11.4-16.0) gm/dL Hct 43.1 (34.0-46.0) % MCV 91.0 (80.0-100.0) fL MCH 31.5 (25.0-35.0) pg MCHC 34.6 (31.0-37.0) g/dL RDW 11.8 (11.5-15.5) % Plt Count 359 (150-450) k/uL Neutrophils % 47 % Lymphocytes % 43 % Monocytes % 5 % Eosinophils % 1 % Basophils % 1 % Neutrophils # 4.2 (1.3-7.7) k/uL Lymphocytes # 3.9 (1.0-4.8) k/uL Monocytes # 0.5 (0-1.0) k/uL Eosinophils # 0.1 (0-0.7) k/uL Basophils # 0.1 (0-0.2) k/uL Sodium 143 (137-145) mmol/L Potassium 3.5 (3.5-5.1) mmol/L Chloride 100 (98-107) mmol/L Carbon Dioxide 28 (22-30) mmol/L Anion Gap 15 mmol/L BUN 16 (7-17) mg/dL Creatinine 0.80 (0.52-1.04) mg/dL Est GFR (CKD-EPI)AfAm 88 (>60 ml/min/1.73 sqM) Est GFR (CKD-EPI)NonAf 77 (>60 ml/min/1.73 sqM) Glucose 90 (74-99) mg/dL Calcium 10.5 H (8.4-10.2) mg/dL Total Bilirubin 0.9 (0.2-1.3) mg/dL AST 30 (14-36) U/L ALT 37 (9-52) U/L Alkaline Phosphatase 76 (38-126) U/L Troponin I (0.000-0.034) ng/mL Total Protein 7.1 (6.3-8.2) g/dL Albumin 4.3 (3.5-5.0) g/dL Lipase (23-300) U/L Urine Color Light Yellow Urine Appearance Cloudy H (Clear) Urine pH 5.5 (5.0-8.0) Ur Specific [place] 1.007 (1.001-1.035) Urine Protein Negative (Negative) Urine Glucose (UA) Negative (Negative) Urine Ketones Negative (Negative) Urine Blood Negative (Negative) Urine Nitrite Negative (Negative) Urine Bilirubin Negative (Negative) Urine Urobilinogen <2.0 (<2.0) mg/dL Ur Leukocyte Esterase Moderate H (Negative) Urine RBC 1 (0-5) /hpf Urine WBC 6 H (0-5) /hpf Ur Squamous Epith Cells <1 (0-4) /hpf Urine Mucus Rare H (None) /hpf 02/16/18 02/16/18 Range/Units 15:23 15:23 WBC (3.8-10.6) k/uL RBC (3.80-5.40) m/uL Hgb (11.4-16.0) gm/dL Hct (34.0-46.0) % MCV (80.0-100.0) fL MCH (25.0-35.0) pg MCHC (31.0-37.0) g/dL RDW (11.5-15.5) % Plt Count (150-450) k/uL Neutrophils % % Lymphocytes % % Monocytes % % Eosinophils % % Basophils % % Neutrophils # (1.3-7.7) k/uL Lymphocytes # (1.0-4.8) k/uL Monocytes # (0-1.0) k/uL Eosinophils # (0-0.7) k/uL Basophils # (0-0.2) k/uL Sodium (137-145) mmol/L Potassium (3.5-5.1) mmol/L Chloride (98-107) mmol/L Carbon Dioxide (22-30) mmol/L Anion Gap mmol/L BUN (7-17) mg/dL Creatinine (0.52-1.04) mg/dL Est GFR (CKD-EPI)AfAm (>60 ml/min/1.73 sqM) Est GFR (CKD-EPI)NonAf (>60 ml/min/1.73 sqM) Glucose (74-99) mg/dL Calcium (8.4-10.2) mg/dL Total Bilirubin (0.2-1.3) mg/dL AST (14-36) U/L ALT (9-52) U/L Alkaline Phosphatase (38-126) U/L Troponin I <0.012 (0.000-0.034) ng/mL Total Protein (6.3-8.2) g/dL Albumin (3.5-5.0) g/dL Lipase 139 (23-300) U/L Urine Color Urine Appearance (Clear) Urine pH (5.0-8.0) Ur Specific [place] (1.001-1.035) Urine Protein (Negative) Urine Glucose (UA) (Negative) Urine Ketones (Negative) Urine Blood (Negative) Urine Nitrite (Negative) Urine Bilirubin (Negative) Urine Urobilinogen (<2.0) mg/dL Ur Leukocyte Esterase (Negative) Urine RBC (0-5) /hpf Urine WBC (0-5) /hpf Ur Squamous Epith Cells (0-4) /hpf Urine Mucus (None) /hpf 02/16/18 18:01 Twelve-lead EKG shows ventricular rate 49 bpm, normal AK interval and QRS, axis , no ST elevation or depression, interpreted by me as sinus bradycardia. Disposition Clinical Impression: UTI (urinary tract infection) Disposition: HOME SELF-CARE Condition: Good Instructions: Urinary Tract Infection in Women (ED) Prescriptions: Nitrofurantoin Monohyd/M-Cryst [Macrobid] 100 mg PO Q12HR #20 cap Referrals: Rogerio Chamberlain DO [Primary Care Provider] - 1-2 days
[2018-02-16 18:17] VITALS: BP 152/78; PULSE 57; TEMP 98.4
== END 2018-02-16 18:17 | disposition home or self-care (01) ==
LOC: EC 14:06
DX: N39.0 Urinary tract infection, site not specified (principal); R00.1 Bradycardia, unspecified; E78.5 Hyperlipidemia, unspecified; I10 Essential (primary) hypertension; M19.90 Unspecified osteoarthritis, unspecified site; F41.9 Anxiety disorder, unspecified; Z90.49 Acquired absence of other specified parts of digestive tract; Z88.0 Allergy status to penicillin; Z88.8 Allergy status to other drugs, medicaments and biological substances; Z91.048 Other nonmedicinal substance allergy status; Z79.899 Other long term (current) drug therapy
CPT/HCPCS: 36415; 74177; 80053; 81001; 83690; 84484; 85025; 93005; 96374; 99284

== ENCOUNTER → 2019-06-13 | Outpatient (CLI) | payer MEDICARE, OTHER ==
[2019-06-13 13:03] VITALS: BP 126/82; PULSE 63; RESP 16; TEMP 97.9
--- NOTE | 2019-06-13 13:09 | P.BASOAP ---
Subjective Progress Note Date: 06/13/19 Principal diagnosis: Morbid obesity Patient returns today for follow-up bariatric visit. Doing well since last visit. Last seen in January. No heartburn while taking antiacids. She has gained 4 pounds since her last visit. No vomiting. She states her rash beneath her pannus has improved. Objective - Vital Signs Vital signs: Vital Signs Temp 97.9 F 06/13/19 13:01 Pulse 63 06/13/19 13:01 Resp 16 06/13/19 13:01 BP 126/82 06/13/19 13:01 Pulse Ox - Exam Abdomen: Soft, nontender, nondistended Assessment/Plan (1) Morbid obesity Narrative/Plan: Patient doing well at this time. Continue dietary and exercise regimen. Follow-up 6 months. We'll check annual labs at that time. Plan: Date: 06/13/19 Initial Weight: 100.834 kg Initial BMI: Current Weight: Current BMI: Type of Surgery: Total Volume in Band: Previous Volume: Volume Removed: Volume Added: Band Size:
[2019-06-13 13:12] VITALS: BMI 24.5
== END | disposition home or self-care (01) ==
LOC: BARWHC3 12:50
PROVIDERS: ATTEND Surgery
DX: E66.01 Morbid (severe) obesity due to excess calories (principal); Z68.24 Body mass index [BMI] 24.0-24.9, adult
CPT/HCPCS: 99211

== ENCOUNTER → 2019-10-24 | Outpatient (CLI) | payer MEDICARE, OTHER ==
[2019-10-24 13:18] VITALS: BP 138/88; PULSE 60; TEMP 97.7; BMI 26.6
--- NOTE | 2019-10-24 14:37 | P.BASOAP ---
Subjective Progress Note Date: 10/24/19 Principal diagnosis: Morbid obesity Patient returns today for evaluation. Last seen in its May. She has gained 5 pounds since last visit. She has found lately that food does not taste good for the most part. States she is eating less than she had been previously. Remains on antiacids. Denies any skin rash. Protein intake is somewhat low. Objective - Vital Signs Vital signs: Vital Signs Temp 97.7 F 10/24/19 13:16 Pulse 60 10/24/19 13:16 Resp BP 138/88 10/24/19 13:16 Pulse Ox Intake & Output 10/23/19 10/24/19 10/24/19 18:59 06:59 18:59 Weight 72.575 kg - Exam Abdomen: Soft, nontender, nondistended Assessment/Plan (1) Morbid obesity Narrative/Plan: Will start taking antiacid therapy every other day. Will increase protein intake and again counting her grams per day. Plan follow-up in January. We'll check 3 year labs at that time. Plan: Date: 10/24/19 Initial Weight: 100.834 kg Initial BMI: 37.0 Current Weight: 72.575 kg Current BMI: 26.6 Type of Surgery: Total Volume in Band: Previous Volume: Volume Removed: Volume Added: Band Size:
== END | disposition home or self-care (01) ==
LOC: BARWHC3 12:50
PROVIDERS: ATTEND Surgery
DX: E66.01 Morbid (severe) obesity due to excess calories (principal); Z68.26 Body mass index [BMI] 26.0-26.9, adult
CPT/HCPCS: 99211

== ENCOUNTER → 2020-01-30 | Outpatient (CLI) | payer MEDICARE, OTHER ==
[2020-01-30 14:58] VITALS: BP 160/85; PULSE 58; RESP 16; TEMP 97.6; BMI 25.6
--- NOTE | 2020-01-30 15:29 | P.BASOAP ---
Subjective Progress Note Date: 01/30/20 Principal diagnosis: Morbid obesity Patient returns for recheck. Doing fairly well. Has been more stressed lately. Her has been ill. As a result of that she has not been eating as much. Some nausea but no vomiting. Still takes daily Prilosec. She is due for annual labs. Objective - Vital Signs Vital signs: Vital Signs Temp 97.6 F 01/30/20 14:55 Pulse 58 L 01/30/20 14:55 Resp 16 01/30/20 14:55 BP 160/85 01/30/20 14:55 Pulse Ox Intake & Output 01/29/20 01/30/20 01/30/20 18:59 06:59 18:59 Weight 69.853 kg - Exam Abdomen: Soft, nontender, nondistended Assessment/Plan (1) Morbid obesity Narrative/Plan: Patient complaining of mild nausea. We'll provide prescription for Zofran. Check 3 year annual labs. Continue dietary and exercise regimen. Follow-up 3 months. Plan: Date: 01/30/20 Initial Weight: 100.834 kg Initial BMI: 37.0 Current Weight: 69.853 kg Current BMI: 25.6 Type of Surgery: Total Volume in Band: Previous Volume: Volume Removed: Volume Added: Band Size:
== END | disposition home or self-care (01) ==
LOC: BARWHC3 14:35
PROVIDERS: ATTEND Surgery
DX: E66.01 Morbid (severe) obesity due to excess calories (principal); Z68.25 Body mass index [BMI] 25.0-25.9, adult; R11.0 Nausea
CPT/HCPCS: 99211

== ENCOUNTER 2020-04-07 08:38 | Emergency (ER) | payer MEDICARE, OTHER ==
[2020-04-07 08:45] VITALS: RESP 16
[2020-04-07] MEDS ORDERED: HYDROmorphone 1 MG/ML 1 ML SYRINGE IM STA (09:19)
--- NOTE | 2020-04-07 09:38 | XR ---
EXAMINATION TYPE: XR lumbosacral spine min 4V , 5 VIEWS DATE OF EXAM ORDERED: 04/07/2020 HISTORY: pain. COMPARISON: Previous study dated 05/09/2010. FINDINGS: There is a mild dextroscoliosis. Vertebral body height and alignment are maintained. There is no spondylolysis or spondylolisthesis. T here is disc space loss at L5-S1. There is mild diffuse facet arthropathy. The pedicles are intact. IMPRESSION: 1. NO ACUTE OSSEOUS LESION. 2. MILD, DIFFUSE DEGENERATIVE CHANGE.
--- NOTE | 2020-04-07 10:16 | ED ---
Back Pain HPI - General Chief Complaint: Back Pain/Injury Stated Complaint: Back and Leg Pain Time Seen by Provider: 04/07/20 08:55 Source: patient, RN notes reviewed Limitations: no limitations - History of Present Illness Initial Comments: 70-year-old female presents emergency from chief complaint of low back pain, left hip pain. Patient states that this pain started 3-4 days ago. Patient states that she does have a history of back pain states that she's had [address] Leach and states after her last ablation she had been good. She states approximate 4 days ago she bent over a chair and felt a little twinge or a pop in her back. She states that she's had pain ever since. She denies any bowel or bladder incontinence or retention denies any saddle anesthesias lower shunted paresthesias. Patient is able to walk states it is painful. She states she uses a cane just in case she feels that her back is going to give out. She states that her back used to give out on a frequent basis. She has no mental abdominal pain no dysuria no hematuria no melena hematochezia. No chest pain or shortness breath. She states she took some old Carney states it did help the pain but then the pain returned. - Related Data Home Medications Medication Instructions Recorded Confirmed ALPRAZolam [Xanax] 0.5 mg PO BID 07/03/14 10/24/19 traMADol HCl [Ultram] 50 - 100 mg PO HS 04/23/15 10/24/19 Atorvastatin [Lipitor] 40 mg PO DAILY 03/11/16 10/24/19 Escitalopram [Lexapro] 20 mg PO DAILY 03/11/16 10/24/19 Metoprolol Succinate (ER) [Toprol 25 mg PO HS 02/16/18 10/24/19 Xl] Previous Rx's Medication Instructions Recorded Omeprazole 20 mg PO DAILY #90 cap 01/15/17 Nitrofurantoin Monohyd/M-Cryst 100 mg PO Q12HR #20 cap 02/16/18 [Macrobid] HYDROcodone/APAP 10-325MG [Carney 1 tab PO Q6HR PRN 3 Days #12 tab 04/07/20 10-325] predniSONE 50 mg PO DAILY #5 tab 04/07/20 Allergies Allergy/AdvReac Type Severity Reaction Status Date / Time adhesive tape Allergy Rash/Hives Verified 10/24/19 13:18 Penicillins Allergy Rash/Hives Verified 10/24/19 13:18 sulfamethoxazole Allergy Rash/Hives Verified 04/07/20 08:45 [From Bactrim] trimethoprim [From Bactrim] Allergy Rash/Hives Verified 04/07/20 08:45 albuterol AdvReac Unknown Verified 10/24/19 13:18 bandaids Allergy red skin Uncoded 10/24/19 13:18 Review of Systems ROS Statement: Those systems with pertinent positive or pertinent negative responses have been documented in the HPI. ROS Other: All systems not noted in ROS Statement are negative. Past Medical History Past Medical History: GERD/Reflux, Hyperlipidemia, Hypertension, Osteoarthritis (OA), Skin Disorder, Sleep Apnea/CPAP/BIPAP Additional Past Medical History / Comment(s): migraines, hiatal hernia, rosacea, degenerative disc disease, neuopathy bilateral legs, several radio frequency ablations to back, 15 years of chronic back pain, uti, glaucoma, hospitalized for dehydration beginning of February 2017. History of Any Multi-Drug Resistant Organisms: None Reported Past Surgical History: Appendectomy, Bariatric Surgery, Cholecystectomy, Hysterectomy, Orthopedic Surgery, Tonsillectomy, Tubal Ligation Additional Past Surgical History / Comment(s): lasik, orif rt elbow, rt hip replacement, cataracts, left knee replacement, lap gastric sleeve 01-13-17 Past Anesthesia/Blood Transfusion Reactions: Motion Sickness, Postoperative Nausea & Vomiting (PONV) Past Psychological History: Anxiety Smoking Status: Never smoker Past Alcohol Use History: None Reported Past Drug Use History: None Reported - Past Family History Father Family Medical History: Seizure Disorder Additional Family Medical History / Comment(s): alcoholic, metal plate in head, at 54 Daughter(s) Additional Family Medical History / Comment(s): 19 year old daughter from injuries from motorcycle accident. Mother Family Medical History: Cancer Additional Family Medical History / Comment(s): mom had cancer of bowel. pt's f ather was an alcoholic and at the age of 54 General Exam Limitations: no limitations General appearance: alert, in no apparent distress Head exam: Present: atraumatic, normocephalic, normal inspection Eye exam: Present: normal appearance, PERRL, EOMI. Absent: scleral icterus, co njunctival injection, periorbital swelling Respiratory exam: Present: normal lung sounds bilaterally. Absent: respiratory distress, wheezes, rales, rhonchi, stridor Cardiovascular Exam: Present: regular rate, normal rhythm, normal heart sounds. Absent: systolic murmur, diastolic murmur, rubs, gallop, clicks GI/Abdominal exam: Present: soft, normal bowel sounds. Absent: distended, tenderness, guarding, rebound, rigid Extremities exam: Present: other (Lower extremities pulses are equal bilatera lly, neurovascular intact equal strength equal warmth minimal discomfort with left straight leg raise) Back exam: Present: normal inspection, full ROM, tenderness (Lower lumbar, buttocks region), paraspinal tenderness. Absent: vertebral tenderness Neurological exam: Present: alert, oriented X3, CN II-XII intact, reflexes normal. Absent: motor sensory deficit Skin exam: Present: warm, dry, intact, normal color. Absent: rash Course Vital Signs 04/07/20 08:41 Temperature 97.6 F Pulse Rate 88 Respiratory 16 Rate Blood Pressure 127/76 O2 Sat by Pulse 98 Oximetry Medical Decision Making - Medical Decision Making 70-year-old female presented to emergency department for low back pain. Patient has a history of back pain. She has no red flag symptoms. She is neurovascular intact there is a bleeding today without difficulty. Patient x-ray shows degenerative changes. Patient has acute on chronic low back pain with radicular symptoms will follow-up with Dr. Leach tomorrow return for any worsening symptoms. Disposition Clinical Impression: Lumbar radiculopathy, acute, Strain of lumbar region Disposition: HOME SELF-CARE Condition: Stable Instructions (If sedation given, give patient instructions): Acute Low Back Pain (ED) Additional Instructions: Please return to the Emergency Department if symptoms worsen or any other concerns. Prescriptions: HYDROcodone/APAP 10-325MG [Carney 10-325] 1 tab PO Q6HR PRN 3 Days #12 tab PRN Reason: pain predniSONE 50 mg PO DAILY #5 tab Is patient prescribed a controlled substance at d/c from ED?: Yes When asked, does pt state using other controlled substances?: Yes If prescribed controlled substance>3 days was MAPS reviewed?: Prescribed <3 Days If opioid is for acute pain is fill amount 7 days or less?: Yes If Rx opioid, was Start Talking consent form obtained?: Yes Referrals: Rogerio Chamberlain DO [Primary Care Provider] - 1-2 days Time of Disposition: 10:26
[2020-04-07 10:39] VITALS: BP 142/72; PULSE 57; TEMP 97.8
== END 2020-04-07 11:01 | disposition home or self-care (01) ==
LOC: EC 08:38
DX: S39.012A Strain of muscle, fascia and tendon of lower back, initial encounter (principal); M54.16 Radiculopathy, lumbar region; F41.9 Anxiety disorder, unspecified; E78.5 Hyperlipidemia, unspecified; I10 Essential (primary) hypertension; Z79.899 Other long term (current) drug therapy; Z88.0 Allergy status to penicillin; Z91.048 Other nonmedicinal substance allergy status; Z88.1 Allergy status to other antibiotic agents; Z88.2 Allergy status to sulfonamides; M19.90 Unspecified osteoarthritis, unspecified site; Z96.641 Presence of right artificial hip joint; Z96.652 Presence of left artificial knee joint; Z98.84 Bariatric surgery status; Z99.89 Dependence on other enabling machines and devices; X58.XXXA Exposure to other specified factors, initial encounter
CPT/HCPCS: 99283; 96372; 72110; J1170

== ENCOUNTER → 2020-04-30 | Outpatient (CLI) | payer MEDICARE, OTHER ==
[2020-04-30 14:03] VITALS: BP 138/85; PULSE 67; TEMP 98.2; BMI 25.6
--- NOTE | 2020-04-30 16:11 | P.BASOAP ---
Subjective Progress Note Date: 04/30/20 Principal diagnosis: Morbid obesity Patient turns for evaluation. Last seen in January. Has had occasional episodes of nausea and fatigue. During these episodes she feels quite weak. She does do better when she eats some protein. Still on antiacid therapy. Takes metoprolol daily. Episodes are usually after her metoprolol dosage. Weight is stable. Objective - Vital Signs Vital signs: Vital Signs Temp 98.2 F 04/30/20 14:00 Pulse 67 04/30/20 14:00 Resp BP 138/85 04/30/20 14:00 Pulse Ox Intake & Output 04/29/20 04/30/20 04/30/20 18:59 06:59 18:59 Weight 69.853 kg - Exam Abdomen: Soft, nontender, nondistended Assessment/Plan (1) Morbid obesity Narrative/Plan: Overall patient doing fairly well. May be developing some side effects to her metoprolol medication. Hypoglycemic episodes not excluded either. Patient asked to have her blood sugar checked when she has her next episode. She will discuss these issues with Dr. Chamberlain when she sees him next. Continue antiacid therapy. Recheck 6 months. Plan: Date: 04/30/20 Initial Weight: 100.834 kg Initial BMI: 37.0 Current Weight: 69.853 kg Current BMI: 25.6 Type of Surgery: Total Volume in Band: Previous Volume: Volume Removed: Volume Added: Band Size:
== END | disposition home or self-care (01) ==
LOC: BARWHC3 13:13
PROVIDERS: ATTEND Surgery
DX: E66.01 Morbid (severe) obesity due to excess calories (principal); Z68.25 Body mass index [BMI] 25.0-25.9, adult
CPT/HCPCS: 99211

== ENCOUNTER → 2020-11-12 | Outpatient (CLI) | payer MEDICARE, OTHER ==
[2020-11-12 13:21] VITALS: BP 140/82; PULSE 53; TEMP 98.2; BMI 26.9
--- NOTE | 2020-11-12 16:01 | P.BASOAP ---
Subjective Progress Note Date: 11/12/20 Principal diagnosis: Morbid obesity Patient returns today for evaluation. She was last seen in April. Since that time her physician increased her metoprolol. She has had less episodes of nausea and fatigue and fainting episodes. Never did check her blood sugar during an episode. Remains on antiacids. She has gained 8 pounds since last visit. She is still happy with her weight. Objective - Vital Signs Vital signs: Vital Signs Temp 98.2 F 11/12/20 13:19 Pulse 53 L 11/12/20 13:19 Resp BP 140/82 11/12/20 13:19 Pulse Ox Intake & Output 11/11/20 11/12/20 11/12/20 18:59 06:59 18:59 Weight 73.482 kg - Exam Abdomen: Soft, nontender, nondistended Assessment/Plan (1) Morbid obesity Narrative/Plan: Patient doing well. Continue to monitor episodes of nausea, fatigue, and near- syncope. Possibly related to patient's medications. She will discuss further with her primary care physician. Continue antiacid therapy. Follow-up this January. Check labs at that time. Plan: Date: 11/12/20 Initial Weight: 100.834 kg Initial BMI: 37.0 Current Weight: 73.482 kg Current BMI: 26.9 Type of Surgery: Total Volume in Band: Previous Volume: Volume Removed: Volume Added: Band Size:
== END | disposition home or self-care (01) ==
LOC: BARWHC3 12:48
PROVIDERS: ATTEND Surgery
DX: E66.01 Morbid (severe) obesity due to excess calories (principal); Z68.26 Body mass index [BMI] 26.0-26.9, adult
CPT/HCPCS: 99211

== ENCOUNTER → 2021-02-11 | Outpatient (CLI) | payer MEDICARE, OTHER ==
[2021-02-11 13:22] VITALS: BP 148/83; PULSE 62; RESP 16; TEMP 98.2; BMI 26.2
--- NOTE | 2021-02-11 16:24 | P.BASOAP ---
Subjective Progress Note Date: 02/11/21 Principal diagnosis: Morbid obesity Patient returns for evaluation. Last seen in October. She is due for 4 year lab work. She has lost 4 pounds since her last visit. Admits to recent depression although says it improved. No nausea or vomiting or reflux. Objective - Vital Signs Vital signs: Vital Signs Temp 98.2 F 02/11/21 13:19 Pulse 62 02/11/21 13:19 Resp 16 02/11/21 13:19 BP 148/83 02/11/21 13:19 Pulse Ox Intake & Output 02/10/21 02/11/21 02/11/21 18:59 06:59 18:59 Weight 71.668 kg - Exam Abdomen: Soft, nontender, nondistended Assessment/Plan (1) Morbid obesity Narrative/Plan: Patient doing well at this time. Continue dietary and exercise regimen. Check 4 year labs at this time. Follow-up 6 months. Plan: Date: 02/11/21 Initial Weight: 100.834 kg Initial BMI: 37.0 Current Weight: 71.668 kg Current BMI: 26.2 Type of Surgery: Total Volume in Band: Previous Volume: Volume Removed: Volume Added: Band Size:
== END ==
LOC: BARWHC3 12:54
PROVIDERS: ATTEND Surgery
DX: E66.01 Morbid (severe) obesity due to excess calories (principal); Z68.26 Body mass index [BMI] 26.0-26.9, adult
CPT/HCPCS: 99211

== ENCOUNTER → 2021-08-05 | Outpatient (CLI) | payer MEDICARE, OTHER ==
[2021-08-05 13:35] VITALS: BP 135/85; PULSE 71; TEMP 98.1; BMI 26.6
--- NOTE | 2021-08-05 16:06 | P.BASOAP ---
Subjective Progress Note Date: 08/05/21 Principal diagnosis: Morbid obesity Patient returns for reevaluation. Last seen in January. Doing well since last visit. She had her labs checked yesterday at her primary care physician's office. She has gained 2 pounds since her last visit. She had her metoprolol decreased again. No nausea or vomiting. No heartburn. Objective - Vital Signs Vital signs: Vital Signs Temp 98.1 F 08/05/21 13:32 Pulse 71 08/05/21 13:32 Resp BP 135/85 08/05/21 13:32 Pulse Ox Intake & Output 08/04/21 08/05/21 08/05/21 18:59 06:59 18:59 Weight 72.575 kg - Exam Abdomen: Soft, nontender, nondistended Assessment/Plan (1) Morbid obesity Narrative/Plan: Patient doing well at this time. Continue dietary and exercise regimen. We'll check recent labs. Follow-up in January of next year. Plan: Date: 08/05/21 Initial Weight: 100.834 kg Initial BMI: 37.0 Current Weight: 72.575 kg Current BMI: 26.6 Type of Surgery: Total Volume in Band: Previous Volume: Volume Removed: Volume Added: Band Size:
== END | disposition home or self-care (01) ==
LOC: BARWHC3 12:59
PROVIDERS: ATTEND Surgery
DX: E66.01 Morbid (severe) obesity due to excess calories (principal); Z68.26 Body mass index [BMI] 26.0-26.9, adult
CPT/HCPCS: 99211

== ENCOUNTER → 2021-12-30 | Outpatient (CLI) | payer MEDICARE, OTHER ==
--- NOTE | 2021-12-30 13:17 | P.BASOAP ---
Subjective Progress Note Date: 12/30/21 Principal diagnosis: Morbid obesity Patient doing well at this time. She is now 5 years post sleeve gastrectomy. She has had good weight loss. 3 more pounds down since last visit. No heartburn. No dysphasia. No antiacid use. Last had labs checked in the summertime. Objective - Exam Abdomen: Soft, nontender, nondistended Assessment/Plan (1) Morbid obesity Narrative/Plan: Patient doing well at this time. Continue dietary and exercise regimen. Plan recheck 1 year. Plan: Date: Initial Weight: 100.834 kg Initial BMI: Current Weight: Current BMI: Type of Surgery: Total Volume in Band: Previous Volume: Volume Removed: Volume Added: Band Size:
[2021-12-30 13:21] VITALS: BP 141/81; PULSE 76; TEMP 98.1; BMI 26.1
== END ==
LOC: BARWHC3 12:55
PROVIDERS: ATTEND Surgery
DX: E66.01 Morbid (severe) obesity due to excess calories (principal); Z68.26 Body mass index [BMI] 26.0-26.9, adult
CPT/HCPCS: 99211

== ENCOUNTER → 2022-07-17 | Outpatient (CLI) | payer MEDICARE, OTHER ==
--- NOTE | 2022-07-17 12:15 | BD ---
EXAMINATION TYPE: Axial Bone Density DATE OF EXAM: 07/17/2022 COMPARISON: NONE CLINICAL HISTORY: 72 years year old Female. ICD-10 CODE: M81.0 OSTEOPOROSIS Height: 65 Weight: 151.8 FRAX RISK QUESTIONS: Alcohol (3 or more units per day): no Family History (Parent hip fracture): no Glucocorticoids (More than 3mos): no (Ex: prednisone, prednisolone, methylprednisolone, dexamethasone, and hydrocortisone). History of Fracture in Adulthood: yes Secondary Osteoporosis: 1. Type 1 Diabetes: no 2. Hyperthyroidism: no 3. Menopause before 45: no 4. Malnutrition: no 5. Chronic liver disease: no Rheumatoid Arthritis: no Current Tobacco Use: no RISK FACTORS HISTORY OF: Surgery to Spine/Hip(right/left)/Wrist (right/left): right hip replaced Family History of Osteoporosis: no Active: no Diet low in dairy products/other sources of calcium: yes Postmenopausal woman: yes Lost more than 2 inches in height since high school: no MEDICATIONS: Additional History: EXAM MEASUREMENTS: Bone mineral densitometry was performed using the [employer] System. Bone mineral density as measured about the Lumbar spine is: ----- L1-L4(G/cm2): 0.942 T Score Values are as follows: ----- L1: -2.1 ----- L2: -2.2 ----- L3: -1.6 ----- L4: -2.2 ----- L1-L4: -2.0 Bone mineral density has: decreased -9.2 % since study of: 09.05.2015 Bone mineral density about the L hip (g/cm2): 0.704 T Score values are as follows: -----L Neck: -2.4 -----L Total: -2.9 Bone mineral density has: decreased -22.3 % since study of: 09.05.2015 FRAX%s: The graph provided illustrates a 23.0% chance for a major osteoporotic fx and a 5.9% chance f or the hips probability for fx in 10 years time. IMPRESSION: Osteoporosis (T Score less than -2.5). There is increased fracture risk and therapy is usually indicated based on age. Re-Screen 1-2 years. NOTE: T-SCORE=SD OF THE YOUNG ADULT MEAN.
== END | disposition home or self-care (01) ==
LOC: RADMAMWWP 08:54
PROVIDERS: ATTEND Family Medicine
DX: Z12.31 Encounter for screening mammogram for malignant neoplasm of breast (principal); M81.0 Age-related osteoporosis without current pathological fracture
CPT/HCPCS: 77063; 77067; 77080

== ENCOUNTER → 2023-07-22 | Outpatient (CLI) | payer MEDICARE, OTHER ==
--- NOTE | 2023-07-23 07:49 | MM ---
Reason for Exam: Screening (asymptomatic). Last screening mammogram was performed 12 month(s) ago. Patient History: Menarche at age 13. First Full-Term at age 26. Left ovary removed at age 48. Right ovary removed at age 48. Hysterectomy at age 48. Postmenopausal. Patient used Estrogen for 4 years. Maternal grandmother had breast cancer, age 50. Niece had breast cancer, bilateral, under age 50. Risk Values: Zahira 5 year model risk: 2.0%. NCI Lifetime model risk: 5.1%. Prior Study Comparison: 09/05/2015 Bilateral Screening Mammogram, [facility]. 09/16/2017 Bilateral Screening Mammogram, [facility]. 07/17/2022 Bilateral MG 3D screening mammo w/cad, [facility]. Tissue Density: The breast tissue is heterogeneously dense. This may lower the sensitivity of mammography. Findings: Analyzed By CAD. There is no suspicious group of microcalcifications in either breast. Benign round calcifications within both breasts. No new suspicious masses in the left breast. Stable asymmetry within the outer left breast on the cc view. Focal asymmetry identified within the right breast at 12:00 at anterior depth. Overall Assessment: Incomplete: need additional imaging evaluation, BI-RAD 0 Management: Diagnostic Mammogram of the right breast. A clinical breast exam by your physician is recommended on an annual basis and results should be correlated with mammographic findings. [facility] will attempt to contact patient to return for supplemental views and ultrasound if indicated. Note on Zahira scores and lifetime risk: 1. A Zahira score greater than 3% is considered moderate risk. If this is the case, consider specialist referral to assess eligibility for a risk reducing agent. If overall lifetime risk for the development of breast cancer is 20% or higher, the patient may qualify for future screening with alternating mammogram and breast MRI. Electronically signed and approved by: Lj Espinoza D.O.
== END | disposition home or self-care (01) ==
LOC: RADMAMWWP 12:53
PROVIDERS: ATTEND Family Medicine
DX: Z12.31 Encounter for screening mammogram for malignant neoplasm of breast (principal); Z78.0 Asymptomatic menopausal state; Z80.3 Family history of malignant neoplasm of breast
CPT/HCPCS: 77063; 77067

== ENCOUNTER → 2023-07-29 | Outpatient (CLI) | payer MEDICARE, OTHER ==
--- NOTE | 2023-07-29 08:50 | MM ---
Reason for Exam: Additional evaluation requested from abnormal screening. Last screening mammogram was performed less than 1 month ago. Patient History: Menarche at age 13. First Full-Term at age 26. Left ovary removed at age 48. Right ovary removed at age 48. Hysterectomy at age 48. Postmenopausal. Patient used Estrogen for 4 years. Maternal grandmother had breast cancer, age 50. Niece had breast cancer, bilateral, under age 50. Risk Values: Zahira 5 year model risk: 2.0%. NCI Lifetime model risk: 5.1%. Prior Study Comparison: 09/05/2015 Bilateral Screening Mammogram, [facility]. 09/16/2017 Bilateral Screening Mammogram, [facility]. 07/17/2022 Bilateral MG 3D screening mammo w/cad, [facility]. 07/22/2023 Bilateral MG 3D screening mammo w/cad, [facility]. Tissue Density: Right: There are scattered fibroglandular densities. Findings: Analyzed By CAD. A vague 9 mm focal asymmetry along the retroareolar plane, anterior depth of the right breast persists on spot compression views but is not well-seen on the 3-D lateral view. Further ultrasound evaluation is recommended. Overall Assessment: Incomplete: need additional imaging evaluation, BI-RAD 0 Management: Diagnostic Breast Ultrasound of the right breast. Subareolar and periareolar. Electronically signed and approved by: Ld Fulton M.D. Radiologist
--- NOTE | 2023-07-29 09:46 | USB ---
Reason for Exam: Additional evaluation requested from abnormal screening. Patient History: Menarche at age 13. First Full-Term at age 26. Left ovary removed at age 48. Right ovary removed at age 48. Hysterectomy at age 48. Postmenopausal. Patient used Estrogen for 4 years. Maternal grandmother had breast cancer, age 50. Niece had breast cancer, bilateral, under age 50. Risk Values: Zahira 5 year model risk: 2.0%. NCI Lifetime model risk: 5.1%. Technique: Method: Targeted. Prior Study Comparison: 09/16/2017 Bilateral Screening Mammogram, [facility]. 07/17/2022 Bilateral MG 3D screening mammo w/cad, [facility]. 07/22/2023 Bilateral MG 3D screening mammo w/cad, [facility]. Findings: The periareolar of the left breast, the axilla of the left breast and the retroareolar of the left breast were scanned. Targeted subareolar and periareolar right breast ultrasound including scanning of the axilla. No solid or cystic lesion or duct ectasia. Overall Assessment: Probably benign, BI-RAD 3 Management: Diagnostic Mammogram of the right breast in 6 months. A clinical breast exam by your physician is recommended on an annual basis and results should be correlated with mammographic findings. This exam should not preclude additional follow-up of suspicious palpable abnormalities. Results were given to the patient verbally at the time of exam. Electronically signed and approved by: Ld Fulton M.D. Radiologist
== END | disposition home or self-care (01) ==
LOC: RADMAMWWP 08:12
PROVIDERS: ATTEND Family Medicine
DX: R92.0 Mammographic microcalcification found on diagnostic imaging of breast (principal); Z78.0 Asymptomatic menopausal state; Z80.3 Family history of malignant neoplasm of breast
CPT/HCPCS: 77065; 76642; G0279; 77061

== ENCOUNTER 2023-09-08 14:24 | Emergency (ER) | payer MEDICARE, OTHER ==
[2023-09-08 16:54] VITALS: BP 110/58; PULSE 59; RESP 16; TEMP 97.5
[2023-09-08] MEDS ORDERED: KETOROLAC 15 MG/ML 1 ML VIAL IM STA (17:24)
--- NOTE | 2023-09-08 17:52 | ED ---
General Adult HPI - General Chief complaint: Skin/Abscess/Foreign Body Stated complaint: lwr right back pain/swelling Time Seen by Provider: 09/08/23 16:42 Source: patient Mode of arrival: wheelchair Limitations: no limitations - History of Present Illness Initial comments: 73-year-old female presents to the ED with a chief complaint of hip/buttock pain. Patient states that she was gardening earlier today. States that when she stood up she lost her balance and fell backwards landing primarily onto her right buttock. Now notes a bruise and pain of the area. No other injuries at this time. No head injury at this time. Patient is not on blood thinners. No other complaints. - Related Data Home Medications Medication Instructions Recorded Confirmed ALPRAZolam [Xanax] 0.5 mg PO BID 07/03/14 12/29/22 traMADol HCl [Ultram] 50 - 100 mg PO HS 04/23/15 12/29/22 Atorvastatin [Lipitor] 40 mg PO DAILY 03/11/16 12/29/22 Escitalopram [Lexapro] 20 mg PO DAILY 03/11/16 12/29/22 Metoprolol Succinate (ER) [Toprol 25 mg PO HS 02/16/18 12/29/22 Xl] Previous Rx's Medication Instructions Recorded Omeprazole 20 mg PO DAILY #90 cap 01/15/17 Nitrofurantoin Monohyd/M-Cryst 100 mg PO Q12HR #20 cap 02/16/18 [Macrobid] HYDROcodone/APAP 10-325MG [Terrell 1 tab PO Q6HR PRN 3 Days #12 tab 04/07/20 10-325] predniSONE 50 mg PO DAILY #5 tab 04/07/20 Allergies Allergy/AdvReac Type Severity Reaction Status Date / Time adhesive tape Allergy Rash/Hives Verified 09/08/23 14:30 Penicillins Allergy Rash/Hives Verified 09/08/23 14:30 sulfamethoxazole Allergy Rash/Hives Verified 09/08/23 14:30 [From Bactrim] trimethoprim [From Bactrim] Allergy Rash/Hives Verified 09/08/23 14:30 albuterol AdvReac Unknown Verified 09/08/23 14:30 bandaids Allergy red skin Uncoded 09/08/23 14:30 Review of Systems ROS Statement: Those systems with pertinent positive or pertinent negative responses have been documented in the HPI. ROS Other: All systems not noted in ROS Statement are negative. Past Medical History Past Medical History: GERD/Reflux, Hyperlipidemia, Hypertension, Osteoarthritis (OA), Skin Disorder, Sleep Apnea/CPAP/BIPAP Additional Past Medical History / Comment(s): migraines, hiatal hernia, rosacea, degenerative disc disease, neuopathy bilateral legs, several radio frequency ablations to back, 15 years of chronic back pain, uti, glaucoma, hospitalized for dehydration beginning of February 2017. History of Any Multi-Drug Resistant Organisms: None Reported Past Surgical History: Appendectomy, Bariatric Surgery, Cholecystectomy, Hysterectomy, Orthopedic Surgery, Tonsillectomy, Tubal Ligation Additional Past Surgical History / Comment(s): lasik, orif rt elbow, rt hip replacement, cataracts, left knee replacement, lap gastric sleeve 01-13-17 Past Anesthesia/Blood Transfusion Reactions: Motion Sickness, Postoperative Nausea & Vomiting (PONV) Past Psychological History: Anxiety Smoking Status: Never smoker Past Alcohol Use History: None Reported Past Drug Use History: None Reported - Past Family History Father Family Medical History: Seizure Disorder Additional Family Medical History / Comment(s): alcoholic, metal plate in head, at 54 Daughter(s) Additional Family Medical History / Comment(s): 19 year old daughter from injuries from motorcycle accident. Mother Family Medical History: Cancer Additional Family Medical History / Comment(s): mom had cancer of bowel. pt's father was an alcoholic and at the age of 54 General Exam Limitations: no limitations General appearance: alert, in no apparent distress Eye exam: Present: normal appearance Neck exam: Present: normal inspection Respiratory exam: Present: normal lung sounds bilaterally Cardiovascular Exam: Present: regular rate, normal rhythm GI/Abdominal exam: Present: soft Extremities exam: Present: other (Strength and sensation of bilateral lower extremities intact. Approximately 10 x 10 hematoma on the patient's right buttock.) Neurological exam: Present: alert, oriented X3 Skin exam: Present: warm, dry Course Vital Signs 09/08/23 09/08/23 14:30 16:37 Temperature 97.7 F 97.5 F L Pulse Rate 72 59 L Respiratory 18 16 Rate Blood Pressure 143/79 110/58 O2 Sat by Pulse 97 98 Oximetry - Reevaluation(s) Reevaluation #1: Patient reevaluated. After Toradol patient had significant improvement of pain. 09/08/23 18:09 Medical Decision Making - Medical Decision Making Was pt. sent in by a medical professional or institution (DEYA Mitchell, [employer], urgent care, hospital, or halfway...) When possible be specific @ -No Did you speak to anyone other than the patient for history (EMS, parent, family, police, friend...)? What history was obtained from this source @ -No Did you review nursing and triage notes (agree or disagree)? Why? @ -I reviewed and agree with nursing and triage notes Were old charts reviewed (outside hosp., previous admission, EMS record, old EKG, old radiological studies, urgent care reports/EKG's, halfway records)? Report findings @ -No old charts were reviewed Differential Diagnosis (chest pain, altered mental status, abdominal pain women, abdominal pain men, vaginal bleeding, weakness, fever, dyspnea, syncope, headache, dizziness, GI bleed, back pain, seizure, CVA, palpatations, mental health, musculoskeletal)? @ -Differential Musculoskeletal Muscular strain, contusion, ligament sprain, fracture, arthritis, septic arthritis, bursitis, cellulitis, muscle spasm, nerve compression, DVT, arterial occlusion, herpes zoster, electrolyte abnormality, tumor.... This is not meant to be in all inclusive list EKG interpreted by me (3pts min.). @ -None X-rays interpreted by me (1pt min.). @ -X-Rays of the pelvis and sacrum/coccyx revealed no acute findings CT interpreted by me (1pt min.). @ -None done U/S interpreted by me (1pt. min.). @ -None done What testing was considered but not performed or refused? (CT, X-rays, U/S, labs)? Why? @ -None What meds were considered but not given or refused? Why? @ -None Did you discuss the management of the patient with other professionals (professionals i.e. DEYA Mitchell, [employer], lab, RT, psych nurse, social worker assistant, historiographer, teacher, staff electronic warfare officer, child welfare caseworker)? Give summary @ -No Was smoking cessation discussed for >3mins.? @ -No Was critical care preformed (if so, how long)? @ -No Were there social determinants of health that impacted care today? How? (Homelessness, low income, unemployed, alcoholism, drug addiction, transportation, low edu. Level, literacy, decrease access to med. care, shelter, rehab)? @ -No Was there de-escalation of care discussed even if they declined (Discuss DNR or withdrawal of care, Hospice)? DNR status @ -No What co-morbidities impacted this encounter? (DM, HTN, Smoking, COPD, CAD, Cancer, CVA, ARF, Chemo, Hep., AIDS, mental health diagnosis, sleep apnea, morbid obesity)? @ -None Was patient admitted / discharged? Hospital course, mention meds given and route, prescriptions, significant lab abnormalities, going to OR and other pertinent info. @ -Discharge 73-year-old female presenting status post mechanical fall now with injury to her right buttocks. Imaging studies reveal no acute findings. Patient had significant improvement of pain with 15 mg Toradol IM here in the ED. Provided ice packs for hematoma. Patient discharged home in stable condition. Discussed return precautions patient verbalizes agreement. Undiagnosed new problem with uncertain prognosis? @ -No Drug Therapy requiring intensive monitoring for toxicity (Heparin, Nitro, Insulin, Cardizem)? @ -No Were any procedures done? @ -No Diagnosis/symptom? @ -s/p mechanical fall, hematoma to right buttocks Acute, or Chronic, or Acute on Chronic? @ -Acute Uncomplicated (without systemic symptoms) or Complicated (systemic symptoms)? @ -Uncomplicated Side effects of treatment? @ -No Exacerbation, Progression, or Severe Exacerbation? @ -No Poses a threat to life or bodily function? How? (Chest pain, [place], [place], pneumonia, PE, COPD, DKA, ARF, appy, cholecystitis, CVA, Diverticulitis, Homicidal, Suicidal, threat to staff... and all critical care pts) @ -No Disposition Clinical Impression: Fall Disposition: HOME SELF-CARE Condition: Good Additional Instructions: Please return to the Emergency Department if symptoms worsen or any other concerns. Is patient prescribed a controlled substance at d/c from ED?: No Referrals: Rogerio Chamberlain DO [Primary Care Provider] - 1-2 days Time of Disposition: 18:56
--- NOTE | 2023-09-08 18:39 | XR ---
EXAMINATION TYPE: XR pelvis AP view DATE OF EXAM: 09/08/2023 6:11 PM CLINICAL INDICATION:Female, 73 years old with history of r hip pain; [facility] COMPARISON: 02/22/2017 TECHNIQUE: The pelvis was examined in a single projection. FINDINGS: ] Hip arthroplasty with hardware in appropriate position. There is no evidence of fracture or dislocation. There is no soft tissue abnormality. No abnormal calcifications are present. The spi ne appears intact. IMPRESSION: No acute osseous pathology.
--- NOTE | 2023-09-08 18:41 | XR ---
EXAMINATION TYPE: XR sacrum coccyx DATE OF EXAM: 09/08/2023 6:26 PM CLINICAL INDICATION:Female, 73 years old with history of s/p fall; [facility] COMPARISON: None TECHNIQUE: The sacrum and coccyx was examined in frontal and lateral projections. FINDINGS: There is no evidence of fracture or dislocation. There is no soft tissue abnormality. No a bnormal calcifications are present. Multilevel degenerative changes of the lower spine. IMPRESSION: No evidence for displaced fracture. If there remains concern consider CT.
== END 2023-09-08 19:07 | disposition home or self-care (01) ==
LOC: EC 14:24
DX: S30.0XXA Contusion of lower back and pelvis, initial encounter (principal); I10 Essential (primary) hypertension; E78.5 Hyperlipidemia, unspecified; G47.30 Sleep apnea, unspecified; F41.9 Anxiety disorder, unspecified; Z79.899 Other long term (current) drug therapy; Z88.0 Allergy status to penicillin; Z88.2 Allergy status to sulfonamides; Z88.1 Allergy status to other antibiotic agents; Z88.8 Allergy status to other drugs, medicaments and biological substances; Z91.09 Other allergy status, other than to drugs and biological substances; W18.30XA Fall on same level, unspecified, initial encounter
CPT/HCPCS: 72170; 72220; 99283; 96372; J1885

== ENCOUNTER 2023-10-22 15:23 | Emergency (ER) | payer MEDICARE, OTHER ==
[2023-10-22] MEDS ORDERED: SODIUM CHLORIDE 0.9% 1,000 ML IV STA (16:13)
[2023-10-22 16:14] VITALS: RESP 18
--- NOTE | 2023-10-22 16:14 | ED ---
Dizziness HPI - General Chief Complaint: Dizziness Stated Complaint: Nausea Time Seen by Provider: 10/22/23 15:27 Source: patient, EMS, RN notes reviewed, old records reviewed Mode of arrival: EMS Limitations: no limitations - History of Present Illness Initial Comments: This is a 73-year-old female to the emergency department for evaluation. Patient comes in with a near syncopal event which became lightheaded dizzy flushed feeling like she may pass out. She was in the checkout line neck area when this occurred. No headache chest pain shortness breath or abdominal pain no history of prior syncopal event. Patient states he feels well has been f eeling well no nausea vomiting diarrhea fever headaches. No change in medications other complaints MD Complaint: dizziness, lightheadedness, near syncope -: minutes(s) Timing: sudden onset Description: lightheadedness, near-syncope History of Same: No History of Trauma: No Severity: severe Improves With: remaining still Worsens With: nothing Associated Symptoms: denies other symptoms - Related Data Home Medications Medication Instructions Recorded Confirmed ALPRAZolam [Xanax] 0.5 mg PO BID 07/03/14 10/22/23 Metoprolol Succinate (ER) [Toprol 25 mg PO DAILY 02/16/18 10/22/23 Xl] Aspirin EC [Ecotrin] 325 mg PO HS 10/22/23 10/22/23 Previous Rx's Medication Instructions Recorded Omeprazole 20 mg PO DAILY #90 cap 01/15/17 Allergies Allergy/AdvReac Type Severity Reaction Status Date / Time adhesive tape Allergy Rash/Hives Verified 10/22/23 18:10 Penicillins Allergy Rash/Hives Verified 10/22/23 18:10 sulfamethoxazole Allergy Rash/Hives Verified 10/22/23 18:10 [From Bactrim] trimethoprim [From Bactrim] Allergy Rash/Hives Verified 10/22/23 18:10 albuterol AdvReac Unknown Verified 10/22/23 18:10 bandaids Allergy red skin Uncoded 10/22/23 18:10 Review of Systems ROS Statement: Those systems with pertinent positive or pertinent negative responses have been documented in the HPI. ROS Other: All systems not noted in ROS Statement are negative. Past Medical History Past Medical History: GERD/Reflux, Hyperlipidemia, Hypertension, Osteoarthritis (OA), Skin Disorder, Sleep Apnea/CPAP/BIPAP Additional Past Medical History / Comment(s): migraines, hiatal hernia, rosacea, degenerative disc disease, neuopathy bilateral legs, several radio frequency ablations to back, 15 years of chronic back pain, uti, glaucoma, hospitalized for dehydration beginning of February 2017. History of Any Multi-Drug Resistant Organisms: None Reported Past Surgical History: Appendectomy, Bariatric Surgery, Cholecystectomy, Hysterectomy, Orthopedic Surgery, Tonsillectomy, Tubal Ligation Additional Past Surgical History / Comment(s): lasik, orif rt elbow, rt hip replacement, cataracts, left knee replacement, lap gastric sleeve 01-13-17 Past Anesthesia/Blood Transfusion Reactions: Motion Sickness, Postoperative Nausea & Vomiting (PONV) Past Psychological History: Anxiety Smoking Status: Never smoker Past Alcohol Use History: None Reported Past Drug Use History: None Reported - Past Family History Father Family Medical History: Seizure Disorder Additional Family Medical History / Comment(s): alcoholic, metal plate in head, at 54 Daughter(s) Additional Family Medical History / Comment(s): 19 year old daughter from injuries from motorcycle accident. Mother Family Medical History: Cancer Additional Family Medical History / Comment(s): mom had cancer of bowel. pt's father was an alcoholic and at the age of 54 General Exam Limitations: no limitations General appearance: alert, in no apparent distress, anxious Head exam: Present: atraumatic, normocephalic, normal inspection Eye exam: Present: normal appearance, PERRL, EOMI. Absent: scleral icterus, conjunctival injection, periorbital swelling ENT exam: Present: normal exam, mucous membranes moist Neck exam: Present: normal inspection. Absent: tenderness, meningismus, lympha denopathy Respiratory exam: Present: normal lung sounds bilaterally. Absent: respiratory distress, wheezes, rales, rhonchi, stridor Cardiovascular Exam: Present: regular rate, normal rhythm, normal heart sounds. Absent: systolic murmur, diastolic murmur, rubs, gallop, clicks GI/Abdominal exam: Present: soft, normal bowel sounds. Absent: distended, tenderness, guarding, rebound, rigid Extremities exam: Present: normal inspection, full ROM, normal capillary refill. Absent: tenderness, pedal edema, joint swelling, calf tenderness Back exam: Present: normal inspection Neurological exam: Present: alert, oriented X3, CN II-XII intact Psychiatric exam: Present: normal affect, normal mood Skin exam: Present: warm, dry, intact, normal color. Absent: rash Course Vital Signs 10/22/23 10/22/23 10/22/23 15:30 17:00 18:00 Temperature 97.4 F L Pulse Rate 60 52 L 73 Respiratory 18 17 18 Rate Blood Pressure 167/73 156/75 153/72 O2 Sat by Pulse 98 98 98 Oximetry 10/22/23 20:32 Temperature 97.6 F Pulse Rate 68 Respiratory 18 Rate Blood Pressure 147/81 O2 Sat by Pulse 98 Oximetry - Reevaluation(s) Reevaluation #1: 10/22/23 Medical records reviewed Reevaluation #2: 10/22/23 Patient has no recurrent symptoms here in the ER no recurrent syncopal event no headache chest pain shortness breath or abdominal pain Reevaluation #3: 10/22/23 Patient informed results questions answered wants discharged home Reevaluation #4: 10/22/23 18:14 Was pt. sent in by a medical professional or institution (, PA, ALUMNI RELATIONS COORDINATOR, urgent care, hospital, or detention...) When possible be specific @ -no Did you speak to anyone other than the patient for history (EMS, parent, family, police, friend...)? What history was obtained from this source @ -no Did you review nursing and triage notes (agree or disagree)? Why? @ -agree Are old charts reviewed (outside hosp., previous admission, EMS record, old EKG, old radiological studies, urgent care reports/EKG's, detention records)? Report findings @ -yes Differential Diagnosis (chest pain, altered mental status, abdominal pain women, abdominal pain men, vaginal bleeding, weakness, fever, dyspnea, syncope, headache, dizziness, GI bleed, back pain, seizure, CVA, palpatations, mental health, musculoskeletal)? @ -prior EKG interpreted by me (3pts min.). @ -yes X-rays interpreted by me (1pt min.). @ -no CT interpreted by me (1pt min.). @ -yes negative for acute disease, no PE U/S interpreted by me (1pt. min.). @ -no What testing was considered but not performed or refused? (CT, X-rays, U/S, labs)? Why? @ -none What meds were considered but not given or refused? Why? @ -none Did you discuss the management of the patient with other professionals (professionals i.e. , PA, ALUMNI RELATIONS COORDINATOR, lab, RT, psych nurse, social media campaign manager, service provider, teacher, penal officer, case picker)? Give summary @ -no Was smoking cessation discussed for >3mins.? @ -no Was critical care preformed (if so, how long)? @ -no Were there social determinants of health that impacted care today? How? (Homelessness, low income, unemployed, alcoholism, drug addiction, transportation, low edu. Level, literacy, decrease access to med. care, penitentiary, rehab)? @ -none Was there de-escalation of care discussed even if they declined (Discuss DNR or withdrawal of care, Hospice)? DNR status @ -no What co-morbidities impacted this encounter? (DM, HTN, Smoking, COPD, CAD, Cancer, CVA, ARF, Chemo, Hep., AIDS, mental health diagnosis, sleep apnea, morbid obesity)? @ -none Was patient admitted / discharged? Hospital course, mention meds given and route, prescriptions, significant lab abnormalities, going to OR and other pertinent info. @ - 73 female to the emergency department for evaluation of a near syncopal event while in the checkout line at [employer], patient has no recurrent syncopal event here in the ER feels well does not have headache chest pain shortness with abdominal pain prefers discharged home Discharge Undiagnosed new problem with uncertain prognosis? @ -no Drug Therapy requiring intensive monitoring for toxicity (Heparin, Nitro, Insulin, Cardizem)? @ -no Were any procedures done? @ -no Diagnosis/symptom? @ -Syncope, near-syncope Acute, or Chronic, or Acute on Chronic? @ -Acute Uncomplicated (without systemic symptoms) or Complicated (systemic symptoms)? @ -Complicated Side effects of treatment? @ -no Exacerbation, Progression, or Severe Exacerbation? @ -exacerbation Poses a threat to life or bodily function? How? (Chest pain, USA, CO, pneumonia, PE, COPD, DKA, ARF, appy, cholecystitis, CVA, Diverticulitis, Homicidal, Suicidal, threat to staff... and all critical care pts) @ -yes multiple causes of syncope Resulted in significant debility or Reevaluation #5: Differential Syncope: Valvular disease, hypertrophic cardiomyopathy, pulmonary embolism, tamponade, tachycardia, bradycardia, CO, hypovolemia, hemorrhage, dissection, anemia, intracranial hemorrhage, seizure, hypoglycemia, carbon monoxide poisoning, this is not meant to be an all-inclusive list. EKG Findings - EKG Comments: EKG Findings:: EKG sinus bradycardia 48 MD 184 QRS 98 QTc 4:30 - EKG Results: EKG: interpreted by MINESH Medical Decision Making - Medical Decision Making 73 female to the emergency department for evaluation of a near syncopal event while in the checkout line at [employer], patient has no recurrent syncopal event here in the ER feels well does not have headache chest pain shortness with abdominal pain prefers discharged home - Lab Data Result diagrams: 10/22/23 17:00 10/22/23 17:00 Lab Results 10/22/23 10/22/23 10/22/23 Range/Units 17:00 17:00 17:00 WBC 7.8 (3.8-10.6) k/uL RBC 3.95 (3.80-5.40) m/uL Hgb 13.0 (11.4-16.0) gm/dL Hct 37.6 (34.0-46.0) % MCV 95.2 (80.0-100.0) fL MCH 33.0 (25.0-35.0) pg MCHC 34.7 (31.0-37.0) g/dL RDW 12.0 (11.5-15.5) % Plt Count 248 (150-450) k/uL MPV 8.8 Neutrophils % 63 % Lymphocytes % 25 % Monocytes % 7 % Eosinophils % 2 % Basophils % 0 % Neutrophils # 4.9 (1.3-7.7) k/uL Lymphocytes # 2.0 (1.0-4.8) k/uL Monocytes # 0.5 (0-1.0) k/uL Eosinophils # 0.1 (0-0.7) k/uL Basophils # 0.0 (0-0.2) k/uL PT 10.5 (10.0-12.5) sec INR 0.9 (<1.2) APTT 19.4 L (22.0-30.0) sec D-Dimer 1.20 H (<0.60) mg/L FEU Sodium 136 L (137-145) mmol/L Potassium 4.0 (3.5-5.1) mmol/L Chloride 106 (98-107) mmol/L Carbon Dioxide 21 L (22-30) mmol/L Anion Gap 9 mmol/L BUN 24 H (7-17) mg/dL Creatinine 0.72 (0.52-1.04) mg/dL Est GFR (CKD-EPI)AfAm >90 (>60 ml/min/1.73 sqM) Est GFR (CKD-EPI)NonAf 85 (>60 ml/min/1.73 sqM) Glucose 85 (74-99) mg/dL Plasma Lactic Acid Jaime (0.7-2.0) mmol/L Calcium 8.5 (8.4-10.2) mg/dL Phosphorus 2.6 (2.5-4.5) mg/dL Magnesium 2.0 (1.6-2.3) mg/dL Total Bilirubin 0.8 (0.2-1.3) mg/dL AST 32 (14-36) U/L ALT 19 (4-34) U/L Alkaline Phosphatase 53 (38-126) U/L Troponin I (0.000-0.034) ng/mL NT-Pro-B Natriuret Pep 224 pg/mL Total Protein 5.9 L (6.3-8.2) g/dL Albumin 3.3 L (3.5-5.0) g/dL TSH 0.867 (0.465-4.680) mIU/L Urine Color Urine Appearance (Clear) Urine pH (5.0-8.0) Ur Specific [place] (1.001-1.035) Urine Protein (Negative) Urine Glucose (UA) (Negative) Urine Ketones (Negative) Urine Blood (Negative) Urine Nitrite (Negative) Urine Bilirubin (Negative) Urine Urobilinogen (<2.0) mg/dL Ur Leukocyte Esterase (Negative) Urine RBC (0-5) /hpf Urine WBC (0-5) /hpf Ur Squamous Epith Cells (0-4) /hpf 10/22/23 10/22/23 10/22/23 Range/Units 17:00 17:00 19:00 WBC (3.8-10.6) k/uL RBC (3.80-5.40) m/uL Hgb (11.4-16.0) gm/dL Hct (34.0-46.0) % MCV (80.0-100.0) fL MCH (25.0-35.0) pg MCHC (31.0-37.0) g/dL RDW (11.5-15.5) % Plt Count (150-450) k/uL MPV Neutrophils % % Lymphocytes % % Monocytes % % Eosinophils % % Basophils % % Neutrophils # (1.3-7.7) k/uL Lymphocytes # (1.0-4.8) k/uL Monocytes # (0-1.0) k/uL Eosinophils # (0-0.7) k/uL Basophils # (0-0.2) k/uL PT (10.0-12.5) sec INR (<1.2) APTT (22.0-30.0) sec D-Dimer (<0.60) mg/L FEU Sodium (137-145) mmol/L Potassium (3.5-5.1) mmol/L Chloride (98-107) mmol/L Carbon Dioxide (22-30) mmol/L Anion Gap mmol/L BUN (7-17) mg/dL Creatinine (0.52-1.04) mg/dL Est GFR (CKD-EPI)AfAm (>60 ml/min/1.73 sqM) Est GFR (CKD-EPI)NonAf (>60 ml/min/1.73 sqM) Glucose (74-99) mg/dL Plasma Lactic Acid Jaime 1.2 (0.7-2.0) mmol/L Calcium (8.4-10.2) mg/dL Phosphorus (2.5-4.5) mg/dL Magnesium (1.6-2.3) mg/dL Total Bilirubin (0.2-1.3) mg/dL AST (14-36) U/L ALT (4-34) U/L Alkaline Phosphatase (38-126) U/L Troponin I <0.012 (0.000-0.034) ng/mL NT-Pro-B Natriuret Pep pg/mL Total Protein (6.3-8.2) g/dL Albumin (3.5-5.0) g/dL TSH (0.465-4.680) mIU/L Urine Color Colorless Urine Appearance Clear (Clear) Urine pH 6.5 (5.0-8.0) Ur Specific [place] 1.010 (1.001-1.035) Urine Protein Negative (Negative) Urine Glucose (UA) Negative (Negative) Urine Ketones 2+ (Negative) Urine Blood Negative (Negative) Urine Nitrite Negative (Negative) Urine Bilirubin Negative (Negative) Urine Urobilinogen <0.2 (<2.0) mg/dL Ur Leukocyte Esterase Moderate (Negative) Urine RBC 1 (0-5) /hpf Urine WBC 5 (0-5) /hpf Ur Squamous Epith Cells <1 (0-4) /hpf - EKG Data -: EKG Interpreted by Ma - Radiology Data Radiology results: report reviewed (CT angios test is negative for PE or acute disease), image reviewed Disposition Clinical Impression: Near syncope Disposition: HOME SELF-CARE Condition: Fair Instructions (If sedation given, give patient instructions): Near Syncope (ED) Is patient prescribed a controlled substance at d/c from ED?: No Referrals: Rogerio Chamberlain DO [Primary Care Provider] - 1-2 days Time of Disposition: 20:10
[2023-10-22 17:33] LABS: Basophils % (A) 0 %; Eosinophils # (A) 0.1 k/uL (0-0.7); Eosinophils % (A) 2 %; HCT 37.6 % (34.0-46.0); Lymphocytes % (A) 25 %; MCHC 34.7 g/dL (31.0-37.0); MCV 95.2 fL (80.0-100.0); Mean Platelet Volume 8.8; Monocytes # (A) 0.5 k/uL (0-1.0); Monocytes % (A) 7 %; Neutrophils # (A) 4.9 k/uL (1.3-7.7); Neutrophils % (A) 63 %; Platelet Count 248 k/uL (150-450); RBC 3.95 m/uL (3.80-5.40); WBC 7.8 k/uL (3.8-10.6)
[2023-10-22 17:48] LABS: ALT 19 U/L (4-34); AST 32 U/L (14-36); African American GFR (CKD) >90 (>60 ml/min/1.73 sqM); Albumin 3.3 g/dL (3.5-5.0); Alkaline Phosphatase 53 U/L (38-126); Anion Gap 9 mmol/L; Blood Urea Nitrogen 24 mg/dL (7-17); Calcium 8.5 mg/dL (8.4-10.2); Carbon Dioxide 21 mmol/L (22-30); Chloride 106 mmol/L (98-107); Glucose 85 mg/dL (74-99); Non-African American GFR(CKD) 85 (>60 ml/min/1.73 sqM); Phosphorus 2.6 mg/dL (2.5-4.5); Sodium 136 mmol/L (137-145); Total Bilirubin 0.8 mg/dL (0.2-1.3); Total Protein 5.9 g/dL (6.3-8.2)
[2023-10-22 17:55] LABS: NT-Pro-B-Type Natriuretic Pept 224 pg/mL
[2023-10-22 18:38] LABS: INR 0.9 (<1.2); Prothrombin Time 10.5 sec (10.0-12.5)
[2023-10-22 18:50] LABS: Partial Thromboplastin Time 19.4 sec (22.0-30.0)
[2023-10-22 19:32] LABS: RBC,Urine 1 /hpf (0-5); Squamous Epithelial Cell,Urine <1 /hpf (0-4); WBC,Urine 5 /hpf (0-5)
--- NOTE | 2023-10-22 19:36 | CT ---
CT CHEST FOR PULMONARY EMBOLISM. EXAMINATION TYPE: CT angio chest DATE OF EXAM: 10/22/2023 INDICATION: Syncopal episode, r/o PE. CT DLP: 240.1 mGycm, Automated exposure control for dose reduction was used. CONTRAST: Patient injected with 100 ml mL of Isovue 370. COMPARISON: None TECHNIQUE: CT of the chest is performed on a spiral scan at 2 mm thick sections. Study is performed with intravenous contrast timed for evaluation for pulmonary embolism. This will limit additional po rtions of the evaluation. 3-D MIP images reconstructed by the technologist are reviewed on the compu ter in the coronal and sagittal planes. FINDINGS: No persistent filling defects are evident to suggest an acute pulmonary embolism. No mediastinal or hilar adenopathy enlarged by CT criteria is evident. The ascending aorta diameter at the level of the main pulmonary artery is 2.9 cm. The main pulmonary artery diameter at the bifur cation is 2.3 cm. Lung windows are clear. Limited CT section through the upper abdomen are unremarkable. There is a moderate size hiatal hernia present with gastric sleeve evident. Upper abdomen appears normal there is a 5.1 cm cyst on the uppe r pole right kidney IMPRESSION: 1. No acute pulmonary embolism. 2. Hiatal hernia.
[2023-10-22 19:38] LABS: Color,Urine Colorless
[2023-10-22 19:39] LABS: Appearance,Urine Clear (Clear); Bilirubin,Urine Negative (Negative); Blood,Urine Negative (Negative); Glucose,Urine (UA) Negative (Negative); Ketones,Urine 2+ (Negative); Leukocyte Esterase,Urine Moderate (Negative); Nitrite,Urine Negative (Negative); PH, Urine 6.5 (5.0-8.0); Protein,Urine Negative (Negative); Urobilinogen,Urine <0.2 mg/dL (<2.0)
[2023-10-22 20:38] VITALS: BP 147/81; PULSE 68; TEMP 97.6
== END 2023-10-22 20:35 | disposition home or self-care (01) ==
LOC: EC 15:23
DX: R55 Syncope and collapse (principal); R00.1 Bradycardia, unspecified; I10 Essential (primary) hypertension; G47.30 Sleep apnea, unspecified; F41.9 Anxiety disorder, unspecified; Z79.899 Other long term (current) drug therapy; Z79.82 Long term (current) use of aspirin; Z91.09 Other allergy status, other than to drugs and biological substances; Z88.0 Allergy status to penicillin; Z88.2 Allergy status to sulfonamides; Z88.1 Allergy status to other antibiotic agents; Z88.8 Allergy status to other drugs, medicaments and biological substances
CPT/HCPCS: 36415; 93005; 85379; 83880; 80053; 83605; 83735; 84100; 84443; 84484; 85025; 85610; 85730; 81001; 71275; 99285; 96360; Q9967

== ENCOUNTER → 2023-12-28 | Outpatient (CLI) | payer MEDICARE, OTHER ==
--- NOTE | 2023-12-28 14:46 | P.BASOAP ---
Subjective Progress Note Date: 12/28/23 Principal diagnosis: Morbid obesity Patient returns for recheck. Last seen 1 year ago. Doing well. Weight has stayed exactly the same. No GERD. No nausea or vomiting. No pain. Remains on antiacids. States she cannot remember if she tried stopping those in the past. She had a CAT scan performed in October. She is not sure why. CAT scan was reviewed and does show a small to moderate-sized hiatal hernia. A portion of the sleeve gastrectomy is certainly above the diaphragm. No dysphagia. Objective - Vital Signs Vital signs: Vital Signs Temp 97.8 F 12/28/23 14:33 Pulse 62 12/28/23 14:33 Resp 16 12/28/23 14:33 BP 169/79 12/28/23 14:33 Pulse Ox FiO2 Intake & Output 12/27/23 12/28/23 12/28/23 18:59 06:59 18:59 Weight 66.678 kg - Exam Abdomen: Soft, nontender, nondistended Assessment/Plan (1) Morbid obesity Narrative/Plan: Patient doing well at this time. Dietary and exercise regimen. Try decreasing antiacid therapy to every other day. If no symptoms develop try stopping antiacid therapy at that time. Will check annual lab work. Follow-up 1 year. Plan: Date: 12/28/23 Initial Weight: 100.834 kg Initial BMI: 37.0 Current Weight: 66.678 kg Current BMI: 24.4 Type of Surgery: Vertical Sleeve Gastrectomy Total Volume in Band: Previous Volume: Volume Removed: Volume Added: Band Size:
[2023-12-28 15:02] VITALS: BP 169/79; PULSE 62; RESP 16; TEMP 97.8; BMI 24.4
[2023-12-29 02:50] LABS: HCT 46.5 % (37.2-46.3); HGB 14.8 g/dL (12.0-15.0); MCH 31.4 pg (27.0-32.0); MCHC 31.8 g/dL (32.0-37.0); MCV 98.5 FL (80.0-97.0); Mean Platelet Volume 10.2 FL (9.5-12.2); NRBC Per 100 WBC 0 X 10*3/uL (0.00-0.01); Platelet Count 313 X 10*3/uL (140-440); RBC 4.72 X 10*6/uL (4.10-5.20); RDW 11.5 % (11.5-14.5); WBC 6.95 X 10*3/uL (4.50-10.00)
[2023-12-29 03:24] LABS: ALT 23 U/L (8-44); AST 31 U/L (13-35); Albumin 4.2 g/dL (3.8-4.9); Albumin/Globulin Ratio 1.62 Ratio (1.60-3.17); Alkaline Phosphatase 58 U/L (41-126); Blood Urea Nitrogen 17.4 mg/dL (9.0-27.0); Calcium 10.2 mg/dL (8.7-10.3); Carbon Dioxide 25.7 mmol/L (21.6-31.8); Chloride 103 mmol/L (96-109); Globulin 2.6 g/dL (1.6-3.3); Glucose 83 mg/dL (70-110); Iron 75 UG/DL (50-170); Potassium 3.9 mmol/L (3.5-5.5); Sodium 141 mmol/L (135-145); Total Bilirubin 0.5 mg/dL (0.3-1.2); Total Protein 6.8 g/dL (6.2-8.2)
== END ==
LOC: BARWHC3 14:22
PROVIDERS: ATTEND Surgery
DX: E66.01 Morbid (severe) obesity due to excess calories (principal); E55.9 Vitamin D deficiency, unspecified; K90.89 Other intestinal malabsorption; Z98.84 Bariatric surgery status; Z71.3 Dietary counseling and surveillance; Z68.24 Body mass index [BMI] 24.0-24.9, adult; Z91.048 Other nonmedicinal substance allergy status; Z88.0 Allergy status to penicillin; Z88.2 Allergy status to sulfonamides; Z88.1 Allergy status to other antibiotic agents; Z88.8 Allergy status to other drugs, medicaments and biological substances
CPT/HCPCS: 84425; 80053; 82607; 82746; 83540; 85027; 82306; 83036; G0463; 99211

== ENCOUNTER 2024-06-21 08:40 | Emergency (ER) | payer MEDICARE, OTHER ==
[2024-06-21 08:45] VITALS: RESP 18
[2024-06-21] MEDS: KETOROLAC 15 MG/ML 1 ML VIAL IM STA (09:05)
--- NOTE | 2024-06-21 09:14 | ED ---
Back Pain HPI - General Chief Complaint: Back Pain/Injury Stated Complaint: L hip/back pain Time Seen by Provider: 06/21/24 08:51 Source: patient, RN notes reviewed Mode of arrival: ambulatory Limitations: no limitations - History of Present Illness Initial Comments: 74-year-old female presents emergency department today complaint of low back pain. She has had increasing back pain with movement over the last 1 week she does have some pain that rates down her left leg to her knee. She denies any bowel, bladder incontinence retention no saddle anesthesias. Patient denies any lower extremity paresthesias. Patient states that she had no fall she has had a prior right hip replacement, left knee replacement. Denies any abdominal pain no urinary symptoms - Related Data Home Medications Medication Instructions Recorded Confirmed ALPRAZolam [Xanax] 0.5 mg PO BID 07/03/14 12/29/23 Metoprolol Succinate (ER) [Toprol 25 mg PO DAILY 02/16/18 12/29/23 Xl] Aspirin EC [Ecotrin] 325 mg PO HS 10/22/23 12/29/23 Previous Rx's Medication Instructions Recorded Omeprazole 20 mg PO DAILY #90 cap 01/15/17 predniSONE 50 mg PO DAILY #5 tab 06/21/24 Allergies Allergy/AdvReac Type Severity Reaction Status Date / Time adhesive tape Allergy Rash/Hives Verified 06/21/24 08:45 Penicillins Allergy Rash/Hives Verified 06/21/24 08:45 sulfamethoxazole Allergy Rash/Hives Verified 06/21/24 08:45 [From Bactrim] trimethoprim [From Bactrim] Allergy Rash/Hives Verified 06/21/24 08:45 albuterol AdvReac Unknown Verified 06/21/24 08:45 bandaids Allergy red skin Uncoded 06/21/24 08:45 Review of Systems ROS Statement: Those systems with pertinent positive or pertinent negative responses have been documented in the HPI. ROS Other: All systems not noted in ROS Statement are negative. Past Medical History Past Medical History: GERD/Reflux, Hyperlipidemia, Hypertension, Osteoarthritis (OA), Skin Disorder, Sleep Apnea/CPAP/BIPAP Additional Past Medical History / Comment(s): migraines, hiatal hernia, rosacea, degenerative disc disease, neuopathy bilateral legs, several radio frequency ablations to back, 15 years of chronic back pain, uti, glaucoma, hospitalized for dehydration beginning of February 2017. History of Any Multi-Drug Resistant Organisms: None Reported Past Surgical History: Appendectomy, Bariatric Surgery, Cholecystectomy, Hysterectomy, Orthopedic Surgery, Tonsillectomy, Tubal Ligation Additional Past Surgical History / Comment(s): lasik, orif rt elbow, rt hip replacement, cataracts, left knee replacement, lap gastric sleeve 01-13-17 Past Anesthesia/Blood Transfusion Reactions: Motion Sickness, Postoperative Nausea & Vomiting (PONV) Past Psychological History: Anxiety Smoking Status: Never smoker Past Alcohol Use History: None Reported Past Drug Use History: None Reported - Past Family History Father Family Medical History: Seizure Disorder Additional Family Medical History / Comment(s): alcoholic, metal plate in head, at 54 Daughter(s) Additional Family Medical History / Comment(s): 19 year old daughter from injuries from motorcycle accident. Mother Family Medical History: Cancer Additional Family Medical History / Comment(s): mom had cancer of bowel. pt's father was an alcoholic and at the age of 54 General Exam Limitations: no limitations General appearance: alert, in no apparent distress Head exam: Present: atraumatic, normocephalic, normal inspection Respiratory exam: Present: normal lung sounds bilaterally. Absent: respiratory distress, wheezes, rales, rhonchi, stridor Cardiovascular Exam: Present: regular rate, normal rhythm, normal heart sounds. Absent: systolic murmur, diastolic murmur, rubs, gallop, clicks GI/Abdominal exam: Present: soft, normal bowel sounds. Absent: distended, tenderness, guarding, rebound, rigid Extremities exam: Present: normal inspection, full ROM, normal capillary refill, other (Lower extremity strength equal bilaterally). Absent: tenderness, pedal edema, joint swelling, calf tenderness Back exam: Present: full ROM (Pain with range of motion left lower back), tenderness, muscle spasm, paraspinal tenderness. Absent: vertebral tenderness Neurological exam: Present: alert, oriented X3, CN II-XII intact, reflexes normal. Absent: motor sensory deficit Course Vital Signs 06/21/24 06/21/24 08:43 13:04 Temperature 98 F 98.1 F Pulse Rate 70 50 L Respiratory 18 18 Rate Blood Pressure 145/85 134/80 O2 Sat by Pulse 98 99 Oximetry Medical Decision Making - Medical Decision Making Was pt. sent in by a medical professional or institution (DEYA Mitchell, BOARD DESIGN ENGINEER, urgent care, hospital, or [facility]...) When possible be specific @ -No Did you speak to anyone other than the patient for history (EMS, parent, family, police, friend...)? What history was obtained from this source @ -No Did you review nursing and triage notes (agree or disagree)? Why? @ -I reviewed and agree with nursing and triage notes Were old charts reviewed (outside hosp., previous admission, EMS record, old EKG, old radiological studies, urgent care reports/EKG's, [facility] records)? Report findings @ -No old charts were reviewed Differential Diagnosis (chest pain, altered mental status, abdominal pain women, abdominal pain men, vaginal bleeding, weakness, fever, dyspnea, syncope, headache, dizziness, GI bleed, back pain, seizure, CVA, palpatations, mental health, musculoskeletal)? @ -Differential Back Pain: Strain, zoster, cauda equina syndrome, epidural abscess, vertebral osteomyelitis, discitis, fracture, subluxation, disc herniation, DJD, spinal stenosis, dissection, AAA, pancreatitis, peptic ulcer disease, pyelonephritis, kidney stone, this is not meant to be an all-inclusive list. EKG interpreted by me (3pts min.). @ -[None X-rays interpreted by me (1pt min.). @ -@Lumbar spine showing degenerative changes X-ray pelvis showing degenerative changes left osteoarthritis CT interpreted by me (1pt min.). @ -None done U/S interpreted by me (1pt. min.). @ -None done What testing was considered but not performed or refused? (CT, X-rays, U/S, labs)? Why? @ -None What meds were considered but not given or refused? Why? @ -None Did you discuss the management of the patient with other professionals (professionals i.e. DEYA Mitchell, BOARD DESIGN ENGINEER, lab, RT, psych nurse, social science manager, divemaster, teacher, child support officer, ed case manager)? Give summary @ -No Was smoking cessation discussed for >3mins.? @ -No Was critical care preformed (if so, how long)? @ -No Were there social determinants of health that impacted care today? How? (Homelessness, low income, unemployed, alcoholism, drug addiction, transportation, low edu. Level, literacy, decrease access to med. care, [place] [facility], rehab)? @ -No Was there de-escalation of care discussed even if they declined (Discuss DNR or withdrawal of care, Hospice)? DNR status @ -No What co-morbidities impacted this encounter? (DM, HTN, Smoking, COPD, CAD, Cancer, CVA, ARF, Chemo, Hep., AIDS, mental health diagnosis, sleep apnea, morbid obesity)? @ -None Was patient admitted / discharged? Hospital course, mention meds given and route, prescriptions, significant lab abnormalities, going to OR and other pertinent info. @ -Discharge patient presented for left hip and low back pain patient has degenerative changes patient has no red flag symptoms will be discharged in stable condition return parameters discussed Undiagnosed new problem with uncertain prognosis? @ -No Drug Therapy requiring intensive monitoring for toxicity (Heparin, Nitro, Insulin, Cardizem)? @ -No Were any procedures done? @ -No Diagnosis/symptom? @ -Lumbar back pain, hip pain Acute, or Chronic, or Acute on Chronic? @ -Acute Uncomplicated (without systemic symptoms) or Complicated (systemic symptoms)? @ -Uncomplicated Side effects of treatment? @ -No Exacerbation, Progression, or Severe Exacerbation? @ -No Poses a threat to life or bodily function? How? (Chest pain, USA, NM, pneumonia, PE, COPD, DKA, ARF, appy, cholecystitis, CVA, Diverticulitis, Homicidal, Suicidal, threat to staff... and all critical care pts) @ -No Disposition Clinical Impression: Osteoarthritis of left hip, Lumbar back pain Disposition: HOME SELF-CARE Condition: Stable Instructions (If sedation given, give patient instructions): Acute Low Back Pain (ED) Additional Instructions: Please return to the Emergency Department if symptoms worsen or any other concerns. Prescriptions: predniSONE 50 mg PO DAILY #5 tab Is patient prescribed a controlled substance at d/c from ED?: No Referrals: Rogerio Chamberlain DO [Primary Care Provider] - 1-2 days Time of Disposition: 11:54
--- NOTE | 2024-06-21 10:22 | XR ---
EXAMINATION TYPE: XR pelvis AP view DATE OF EXAM: 06/21/2024 9:51 AM CLINICAL INDICATION:Female, 74 years old with history of pain; COMPARISON: None TECHNIQUE: XR pelvis AP view, examined in a single projection. FINDINGS: There is no evidence of fracture or dislocation. There is no soft tissue abnormality. No a bnormal calcifications are present. The spine appears intact. The left hip appears intact. Osteophyte formation of the superior acetabulum with mild joint space narrowing. Right hip arthroplasty with triplett rdware intact. IMPRESSION: No acute osseous pathology. Right hip arthroplasty with hardware intact. Mild to moderate left osteoarthrosis
--- NOTE | 2024-06-21 11:48 | XR ---
EXAMINATION TYPE: XR lumbar spine 2 or 3V DATE OF EXAM: 06/21/2024 9:51 AM CLINICAL INDICATION:Female, 74 years old with history of pain; COMPARISON: None TECHNIQUE: XR lumbar spine 2 or 3V - Frontal, lateral and coned in L5-S1 lateral views of the spine. FINDINGS: No evidence of any acute osseous pathology. No evidence of loss of vertebral body height i s seen. There is normal alignment of the lumbar vertebral bodies. Scattered disc space narrowing. Mul tilevel marginal osteophyte formation throughout the visualized spine. There is facet joint arthropat hy throughout the spine. Scattered at least mild neural foraminal stenosis. Right upper quadrant chol ecystectomy clips. Atherosclerosis of the arterial vasculature. Suture in the upper abdomen. IMPRESSION: 1. No acute fracture. 2. Moderate multilevel disc degeneration.
[2024-06-21] MEDS: ACET/COD 300 MG/30 MG STARTER PACK 6 TAB BTL PO STA (12:06)
[2024-06-21 13:06] VITALS: BP 134/80; PULSE 50; TEMP 98.1
== END 2024-06-21 14:19 | disposition home or self-care (01) ==
LOC: EC 08:40
DX: M16.12 Unilateral primary osteoarthritis, left hip (principal); M54.50 Low back pain, unspecified; Z88.2 Allergy status to sulfonamides; Z88.1 Allergy status to other antibiotic agents; Z88.0 Allergy status to penicillin; Z88.8 Allergy status to other drugs, medicaments and biological substances; X50.0XXA Overexertion from strenuous movement or load, initial encounter
CPT/HCPCS: 72100; 72170; 99283; 96372; J1885

== ENCOUNTER → 2024-10-06 | Outpatient (CLI) | payer MEDICARE, OTHER ==
--- NOTE | 2024-10-06 08:24 | MM ---
Reason for Exam: Additional evaluation requested from prior study. Last mammogram was performed 1 year(s) and 3 month(s) ago. Patient History: Menarche at age 13. First Full-Term at age 26. Left ovary removed at age 48. Right ovary removed at age 48. Hysterectomy at age 48. Postmenopausal. Patient used Estrogen for 4 years. Maternal grandmother had breast cancer, age 50. Niece had breast cancer, bilateral, under age 50. Risk Values: Zahira 5 year model risk: 2.0%. NCI Lifetime model risk: 4.8%. Tissue Density: There are scattered areas of fibroglandular density. Findings: Analyzed By CAD. The pattern is symmetrical. No significant interval change. No suspicious groups of microcalcifications, spiculated or lobular masses, architectural distortion or other secondary signs of malignancy are mammographically apparent. Overall Assessment: Benign, BI-RAD 2 Management: Screening Mammogram of both breasts in 1 year. A negative mammogram report should not preclude additional follow up of suspicious palpable abnormalities. Patient should continue monthly self breast exam. A clinical breast exam by your physician is recommended on an annual basis and results should be correlated with mammographic findings. Note on Zahira scores and lifetime risk: 1. A Zahira score greater than 3% is considered moderate risk. If this is the case, consider specialist referral to assess eligibility for a risk reducing agent. 2. If overall lifetime risk for the development of breast cancer is 20% or higher, the patient may qualify for future screening with alternating mammogram and breast MRI. [facility], , 10/06/2024 8:19 AM. Electronically signed and approved by: Kristian Peterson D.O. Radiologis
--- NOTE | 2024-10-08 22:23 | BD ---
EXAMINATION TYPE: Axial Bone Density DATE OF EXAM: 10/06/2024 CLINICAL HISTORY: 74 years old Female. ICD-10 CODE: M81.0 OSTEOPOROSIS , Additional History: Height: 65" Weight: 144lbs FRAX RISK QUESTIONS: Alcohol (3 or more units per day): No Family History (Parent hip fracture): No Glucocorticoids (More than 3mos): No (Ex: prednisone, prednisolone, methylprednisolone, dexamethasone, and hydrocortisone). History of Fracture in Adulthood: No Secondary Osteoporosis: 1. Type 1 Diabetes: No 2. Hyperthyroidism: No 3. Menopause before 45: Yes 4. Malnutrition: No 5. Chronic liver disease: No Rheumatoid Arthritis: No Current Tobacco Use: No RISK FACTORS HISTORY OF: Hip Fracture (Right/Left): No Spine Fracture: No History of Wrist Fracture: No Surgery to Spine/Hip(right/left)/Wrist (right/left): Yes, right hip replacement 2014 MEDICATIONS: Thyroid Medications: No Osteoporosis Medications: No EXAM MEASUREMENTS: Bone mineral densitometry was performed using the [employer] System. Bone mineral density as measured about the Lumbar spine is: ----- L1-L4(G/cm2): 1.005 T Score Values are as follows: ----- L1: -2.6 ----- L2: -2.0 ----- L3: -0.7 ----- L4: -0.9 ----- L1-L4: -1.5 Z Score Values are as follows: ----- L1: -0.9 ----- L2: -0.3 ----- L3: 1.0 ----- L4: 0.8 ----- L1-L4: 0.3 Bone mineral density has: increased 6.7% since study of: 07/17/2022 Bone mineral density about the L hip (g/cm2): 0.655 T Score values are as follows: -----L Neck: -1.8 -----L Total: -2.8 Z Score values are as follows: -----L Neck: 0.0 -----L Total: -1.2 Bone mineral density has: increased 2.8% since study of: 07/17/2022 FRAX%s: The graph provided illustrates a 11.9% chance for a major osteoporotic fx and a 2.6% chance f or the hips probability for fx in 10 years time. IMPRESSION: Osteoporosis (T Score less than -2.5). There is increased fracture risk and therapy is usually indicated based on age. Re-Screen 1-2 years. NOTE: T-SCORE=SD OF THE YOUNG ADULT MEAN. [facility], , 10/08/2024 10:20 PM
== END | disposition home or self-care (01) ==
LOC: RADMAMWWP 07:06
PROVIDERS: ATTEND Family Medicine
DX: R92.323 Mammographic fibroglandular density, bilateral breasts (principal); R92.8 Other abnormal and inconclusive findings on diagnostic imaging of breast; M81.0 Age-related osteoporosis without current pathological fracture; Z78.0 Asymptomatic menopausal state; Z80.3 Family history of malignant neoplasm of breast; Z90.722 Acquired absence of ovaries, bilateral; Z96.641 Presence of right artificial hip joint
CPT/HCPCS: 77080; 77066; G0279; 77062

== ENCOUNTER → 2024-12-26 | Outpatient (CLI) | payer MEDICARE, OTHER ==
[2024-12-26 13:55] VITALS: BP 174/96; PULSE 71; RESP 16; TEMP 97.7; BMI 23.8
--- NOTE | 2024-12-26 14:07 | P.BASOAP ---
Subjective Progress Note Date: 12/26/24 Principal diagnosis: Morbid obesity Patient returns for annual recheck. Doing well from a sleeve point of view. She has lost 4 pounds but says its only in the last week or so because her broke his hip and is now in a fdc. He also has advanced Parkinson's. She had some diarrhea recently but thinks it is related to the stress. Denies heartburn. No nausea or vomiting. Says she is not taking an antiacid any longer. Objective - Vital Signs Vital signs: Vital Signs Temp 97.7 F 12/26/24 13:51 Pulse 71 12/26/24 13:51 Resp 16 12/26/24 13:51 BP 174/96 12/26/24 13:51 Pulse Ox FiO2 Intake & Output 12/25/24 12/26/24 12/26/24 18:59 06:59 18:59 Weight 64.864 kg - Exam Abdomen: Soft, nontender, nondistended Assessment/Plan (1) Morbid obesity Narrative/Plan: 74-year-old female doing well after prior sleeve gastrectomy. Continue dietary and exercise regiment. Monitor for recurrent heartburn. Patient with history of known hiatal hernia. Check annual blood work. Follow-up 1 year. Plan: Date: 12/26/24 Initial Weight: 100.834 kg Initial BMI: 37.0 Current Weight: 64.864 kg Current BMI: 23.8 Type of Surgery: Vertical Sleeve Gastrectomy Total Volume in Band: Previous Volume: Volume Removed: Volume Added: Band Size:
== END ==
LOC: BARWHC3 13:40
PROVIDERS: ATTEND Surgery
DX: E66.01 Morbid (severe) obesity due to excess calories (principal); Z68.23 Body mass index [BMI] 23.0-23.9, adult; Z91.09 Other allergy status, other than to drugs and biological substances; Z88.2 Allergy status to sulfonamides; Z88.0 Allergy status to penicillin; Z88.8 Allergy status to other drugs, medicaments and biological substances; Z91.048 Other nonmedicinal substance allergy status
CPT/HCPCS: 99211

== ENCOUNTER → 2024-12-26 | Outpatient (CLI) | payer MEDICARE, OTHER ==
[2024-12-26 19:15] LABS: HCT 45.3 % (37.2-46.3); HGB 14.6 g/dL (12.0-15.0); MCH 31.6 pg (27.0-32.0); MCHC 32.2 g/dL (32.0-37.0); MCV 98.1 FL (80.0-97.0); Mean Platelet Volume 9.7 FL (9.5-12.2); NRBC Per 100 WBC 0 X 10*3/uL (0.00-0.01); Platelet Count 332 X 10*3/uL (140-440); RBC 4.62 X 10*6/uL (4.10-5.20); RDW 11.5 % (11.5-14.5); WBC 7.24 X 10*3/uL (4.50-10.00)
[2024-12-26 19:24] LABS: ALT 22 U/L (8-44); AST 42 U/L (13-35); Albumin 4.3 g/dL (3.8-4.9); Albumin/Globulin Ratio 1.59 Ratio (1.60-3.17); Alkaline Phosphatase 67 U/L (41-126); BUN/Creat Ratio 12.11 Ratio (12.00-20.00); Blood Urea Nitrogen 10.9 mg/dL (9.0-27.0); Calcium 9.5 mg/dL (8.7-10.3); Carbon Dioxide 22.4 mmol/L (21.6-31.8); Chloride 105 mmol/L (96-109); Globulin 2.7 g/dL (1.6-3.3); Glucose 84 mg/dL (70-110); Iron 80 UG/DL (50-170); Potassium 3.1 mmol/L (3.5-5.5); Sodium 143 mmol/L (135-145); Total Bilirubin 0.9 mg/dL (0.3-1.2)
== END | disposition home or self-care (01) ==
LOC: LABWHC1 14:23
PROVIDERS: ATTEND Surgery
DX: E66.01 Morbid (severe) obesity due to excess calories (principal); E55.9 Vitamin D deficiency, unspecified; K90.9 Intestinal malabsorption, unspecified
CPT/HCPCS: 36415; 80053; 82306; 82607; 82746; 83540; 84425; 85027

== ENCOUNTER 2025-02-16 09:18 | Emergency (ER) | payer MEDICARE, OTHER ==
[2025-02-16 09:24] VITALS: TEMP 97.9
--- NOTE | 2025-02-16 10:02 | ED ---
Weakness HPI - General Chief complaint: Weakness Stated complaint: weak, dizzy Time Seen by Provider: 02/16/25 09:56 Source: patient, family (son), RN notes reviewed, old records reviewed Mode of arrival: ambulatory Limitations: no limitations - History of Present Illness Initial comments: 75-year-old female with a past medical history significant of hyperlipidemia, hypertension, GERD presenting to the ER for evaluation of weakness. Patient reports she has numerous life stressors occurring currently including selling her home and her living out of a nursing facility as he is currently ill. She states she feels very weak and believes this is stemming as she has had decreased oral intake. Patient has tried ensures drinks but states that th is makes her have diarrhea. Son, at bedside, states patient has been complaining of dizziness over the past week. Patient was seen by PCP, Dr. Chamberlain, and was prescribed a medication which patient reports did help. She is unsure of the medications name. She describes her dizziness as a lightheaded sensation. She states it occasionally feels like the room is spinning for which she has to lay down and then symptoms improved. Patient also reports recently she has noticed a tremor to her head. She denies any chest pain, shortness of breath, abdominal pain, nausea, vomiting, urinary complaints, constipation/diarrhea, fevers, cough, congestion or chills. Recent right humeral fracture. Son also states patient is soon to be evaluated for possible Alzheimer's disease patient very forgetful recently - Related Data Home Medications Medication Instructions Recorded Confirmed ALPRAZolam [Xanax] 0.5 mg PO BID 07/03/14 12/27/24 Metoprolol Succinate (ER) [Toprol 25 mg PO DAILY 02/16/18 12/27/24 Xl] Aspirin EC [Ecotrin] 325 mg PO HS 10/22/23 12/27/24 Previous Rx's Medication Instructions Recorded Omeprazole 20 mg PO DAILY #90 cap 01/15/17 predniSONE 50 mg PO DAILY #5 tab 06/21/24 HYDROcodone/APAP 5-325MG [[facility] 5] 1 each PO Q6HR PRN #12 tab 12/31/24 HYDROcodone/APAP 5-325MG [[facility] 1 tab PO Q6HR PRN #12 tab 01/01/25 5-325] Nitrofurantoin Monohyd/M-Cryst 100 mg PO Q12HR #14 cap 02/16/25 [Macrobid] Allergies Allergy/AdvReac Type Severity Reaction Status Date / Time adhesive tape Allergy Rash/Hives Verified 02/16/25 09:24 Penicillins Allergy Rash/Hives Verified 02/16/25 09:24 sulfamethoxazole Allergy Rash/Hives Verified 02/16/25 09:24 [From Bactrim] trimethoprim [From Bactrim] Allergy Rash/Hives Verified 02/16/25 09:24 albuterol AdvReac Unknown Verified 02/16/25 09:24 bandaids Allergy red skin Uncoded 02/16/25 09:24 Review of Systems ROS Statement: Those systems with pertinent positive or pertinent negative responses have been documented in the HPI. ROS Other: All systems not noted in ROS Statement are negative. Past Medical History Past Medical History: GERD/Reflux, Hyperlipidemia, Hypertension, Osteoarthritis (OA), Skin Disorder, Sleep Apnea/CPAP/BIPAP Additional Past Medical History / Comment(s): migraines, hiatal hernia, rosacea, degenerative disc disease, neuopathy bilateral legs, several radio frequency ablations to back, 15 years of chronic back pain, uti, glaucoma, hospitalized for dehydration beginning of February 2017. History of Any Multi-Drug Resistant Organisms: None Reported Past Surgical History: Appendectomy, Bariatric Surgery, Cholecystectomy, Hysterectomy, Orthopedic Surgery, Tonsillectomy, Tubal Ligation Additional Past Surgical History / Comment(s): lasik, orif rt elbow, rt hip replacement, cataracts, left knee replacement, lap gastric sleeve 01-13-17 Past Anesthesia/Blood Transfusion Reactions: Motion Sickness, Postoperative Nausea & Vomiting (PONV) Past Psychological History: Anxiety Smoking Status: Never smoker Past Alcohol Use History: None Reported Past Drug Use History: None Reported - Past Family History Father Family Medical History: Seizure Disorder Additional Family Medical History / Comment(s): alcoholic, metal plate in head, at 54 Daughter(s) Additional Family Medical History / Comment(s): 19 year old daughter from injuries from motorcycle accident. Mother Family Medical History: Cancer Additional Family Medical History / Comment(s): mom had cancer of bowel. pt's father was an alcoholic and at the age of 54 General Exam Limitations: no limitations General appearance: alert, in no apparent distress Eye exam: Present: normal appearance, PERRL, EOMI. Absent: scleral icterus, conjunctival injection, periorbital swelling Pupils: Present: normal accommodation ENT exam: Present: normal exam, normal oropharynx, mucous membranes moist Respiratory exam: Present: normal lung sounds bilaterally. Absent: respiratory distress, wheezes, rales, rhonchi, stridor Cardiovascular Exam: Present: regular rate, normal rhythm, normal heart sounds. Absent: systolic murmur, diastolic murmur, rubs, gallop, clicks GI/Abdominal exam: Present: soft, normal bowel sounds. Absent: distended, tenderness, guarding, rebound, rigid Extremities exam: Present: normal inspection, full ROM, normal capillary refill. Absent: tenderness, pedal edema, joint swelling, calf tenderness Neurological exam: Present: alert, oriented X3, CN II-XII intact Skin exam: Present: warm, dry, intact, normal color. Absent: rash Course Vital Signs 02/16/25 02/16/25 02/16/25 09:19 12:06 13:55 Temperature 97.9 F Pulse Rate 98 86 82 Respiratory 20 18 18 Rate Blood Pressure 123/85 168/98 174/90 O2 Sat by Pulse 97 95 97 Oximetry EKG Findings - EKG Comments: EKG Findings:: EKG taken at 9: 38 showing a sinus rhythm. Inverted T waves lead III. Ventricular rate 92, KS interval 153, QRS ration 95, QT/QTc 348/398. Medical Decision Making - Medical Decision Making Was pt. sent in by a medical professional or institution (, PA, TRAFFIC CONTROLLER CABLE, urgent care, hospital, or long-term...) When possible be specific @ -No Did you speak to anyone other than the patient for history (EMS, parent, family, police, friend...)? What history was obtained from this source @ -Patient's son, at bedside, aiding in HPI and past medical history. Did you review nursing and triage notes (agree or disagree)? Why? @ -I reviewed and agree with nursing and triage notes Were old charts reviewed (outside hosp., previous admission, EMS record, old EKG, old radiological studies, urgent care reports/EKG's, long-term records)? Report findings @ -No old charts were reviewed Differential Diagnosis (chest pain, altered mental status, abdominal pain women, abdominal pain men, vaginal bleeding, weakness, fever, dyspnea, syncope, headache, dizziness, GI bleed, back pain, seizure, CVA, palpatations, mental health, musculoskeletal)? @ -Differential Weakness: Hypoglycemia, shock, sepsis, hyponatremia, anemia, in fection, RI, ETOH, adverse medicine reaction, overdose, stroke, this is not meant to be an all-inclusive list. EKG interpreted by me (3pts min.). @ -As above X-rays interpreted by me (1pt min.). @ -CXR interpreted by me negative for acute cardiopulmonary process. CT interpreted by me (1pt min.). @ -CT brain negative for acute intracranial hemorrhage or midline shift. There is moderate diffuse age-related cerebral atrophy and moderate to severe probable chronic small vessel ischemic changes identified. U/S interpreted by me (1pt. min.). @ -None done What testing was considered but not performed or refused? (CT, X-rays, U/S, labs)? Why? @ -None What meds were considered but not given or refused? Why? @ -None Did you discuss the management of the patient with other professionals (audra torrez i.e. , PA, TRAFFIC CONTROLLER CABLE, lab, RT, psych nurse, social media marketer, casing puller, teacher, hydrographical technical officer, child welfare caseworker)? Give summary @ -No Was smoking cessation discussed for >3mins.? @ -No Was critical care preformed (if so, how long)? @ -No Were there social determinants of health that impacted care today? How? (Homelessness, low income, unemployed, alcoholism, drug addiction, transportation, low edu. Level, literacy, decrease access to med. care, group home, rehab)? @ -No Was there de-escalation of care discussed even if they declined (Discuss DNR or withdrawal of care, Hospice)? DNR status @ -No What co-morbidities impacted this encounter? (DM, HTN, Smoking, COPD, CAD, Cancer, CVA, ARF, Chemo, Hep., AIDS, mental health diagnosis, sleep apnea, morbid obesity)? @ -Hyperlipidemia, hypertension, GERD, advanced age Was patient admitted / discharged? Hospital course, mention meds given and route, prescriptions, significant lab abnormalities, going to OR and other pertinent info. @ -Discharge. 75-year-old female accompanied by her son presented the ER for evaluation of weakness and dizziness. Upon rooming, history and physical exam completed. Vitals within acceptable limits. Patient in no signs of acute distress nontoxic-appearing. No acute neurological findings on exam. NIH 0. Patient is neurovascularly intact. Laboratory studies obtained unimpressive. Troponin undetectable. Viral swabs negative. Urinalysis concerning of infection with 42 WBCs and positive nitrates, urine sent for culture. Patient will be started on Macrobid. Chest x-ray and CT brain negative for acute process. There is chronic cerebral atrophy noted on CT scan. EKG showing a sinus rhythm. Patient given IV fluid bolus and meclizine for symptom control in the emergency department. Upon reevaluation, patient resting comfortably exam room no signs of acute distress. Patient reporting improvement of dizziness. Laboratory and all imaging results discussed with patient and son. They are comfortable with discharge at this time. Son reports follow-up appointment with PCP next Wednesday. Strict return parameters discussed. Patient discharged in stable condition. Patient and patient's son verbally expressed understanding and agreement with care plan. Case discussed with ED attending, Dr. Carey. Undiagnosed new problem with uncertain prognosis? @ -No Drug Therapy requiring intensive monitoring for toxicity (Heparin, Nitro, Insulin, Cardizem)? @ -No Were any procedures done? @ -No Diagnosis/symptom? @ -UTI Acute, or Chronic, or Acute on Chronic? @ -Acute Uncomplicated (without systemic symptoms) or Complicated (systemic symptoms)? @ -Uncomplicated Side effects of treatment? @ -No Exacerbation, Progression, or Severe Exacerbation? @ -No Poses a threat to life or bodily function? How? (Chest pain, USA, RI, pneumonia, PE, COPD, DKA, ARF, appy, cholecystitis, CVA, Diverticulitis, Homicidal, Suicidal, threat to staff... and all critical care pts) @ -Low at this time - Lab Data Result diagrams: 02/16/25 10:01 02/16/25 10:01 Lab Results 02/16/25 02/16/25 02/16/25 Range/Units 10:01 10:01 10:01 WBC 8.7 (3.8-10.6) k/uL RBC 4.87 (3.80-5.40) m/uL Hgb 15.5 (11.4-16.0) gm/dL Hct 47.0 H (34.0-46.0) % MCV 96.5 (80.0-100.0) fL MCH 31.7 (25.0-35.0) pg MCHC 32.9 (31.0-37.0) g/dL RDW 12.3 (11.5-15.5) % Plt Count 340 (150-450) k/uL MPV 7.2 Neutrophils % 67 % Lymphocytes % 24 % Monocytes % 5 % Eosinophils % 1 % Basophils % 1 % Neutrophils # 5.8 (1.3-7.7) k/uL Lymphocytes # 2.1 (1.0-4.8) k/uL Monocytes # 0.4 (0-1.0) k/uL Eosinophils # 0.1 (0-0.7) k/uL Basophils # 0.1 (0-0.2) k/uL PT 11.0 (10.0-12.5) sec INR 1.0 (<1.2) APTT 22.7 (22.0-30.0) sec Sodium (137-145) mmol/L Potassium (3.5-5.1) mmol/L Chloride (98-107) mmol/L Carbon Dioxide (22-30) mmol/L Anion Gap mmol/L BUN (7-17) mg/dL Creatinine (0.52-1.04) mg/dL Est GFR (CKD-EPI)AfAm (>60 ml/min/1.73 sqM) Est GFR (CKD-EPI)NonAf (>60 ml/min/1.73 sqM) Glucose (74-99) mg/dL Plasma Lactic Acid Jaime (0.7-2.0) mmol/L Calcium (8.4-10.2) mg/dL Magnesium (1.6-2.3) mg/dL Total Bilirubin (0.2-1.3) mg/dL AST (14-36) U/L ALT (4-34) U/L Alkaline Phosphatase (38-126) U/L Troponin I (0.000-0.034) ng/mL Total Protein (6.3-8.2) g/dL Albumin (3.5-5.0) g/dL Urine Color Colorless Urine Appearance Cloudy H (Clear) Urine pH 6.5 (5.0-8.0) Ur Specific [place] 1.012 (1.001-1.035) Urine Protein Negative (Negative) Ur Protein Confirm Not Reportable Urine Glucose (UA) Negative (Negative) Urine Ketones Negative (Negative) Urine Blood Negative (Negative) Urine Nitrite Positive H (Negative) Urine Bilirubin Negative (Negative) Ur Bilirubin Confirm Not Reportable Urine Urobilinogen <2.0 (<2.0) mg/dL Ur Leukocyte Esterase Large H (Negative) Urine RBC 1 (0-5) /hpf Urine WBC 42 H (0-5) /hpf Ur Squamous Epith Cells 1 (0-4) /hpf Urine Bacteria Rare H (None) /hpf Urine Mucus Rare H (None) /hpf Influenza Type A (PCR) (Not Detectd) Influenza Type B (PCR) (Not Detectd) RSV (PCR) (Not Detectd) SARS-CoV-2 (PCR) (Not Detectd) 02/16/25 02/16/25 02/16/25 Range/Units 10:01 10:01 10:01 WBC (3.8-10.6) k/uL RBC (3.80-5.40) m/uL Hgb (11.4-16.0) gm/dL Hct (34.0-46.0) % MCV (80.0-100.0) fL MCH (25.0-35.0) pg MCHC (31.0-37.0) g/dL RDW (11.5-15.5) % Plt Count (150-450) k/uL MPV Neutrophils % % Lymphocytes % % Monocytes % % Eosinophils % % Basophils % % Neutrophils # (1.3-7.7) k/uL Lymphocytes # (1.0-4.8) k/uL Monocytes # (0-1.0) k/uL Eosinophils # (0-0.7) k/uL Basophils # (0-0.2) k/uL PT (10.0-12.5) sec INR (<1.2) APTT (22.0-30.0) sec Sodium 138 (137-145) mmol/L Potassium 3.9 (3.5-5.1) mmol/L Chloride 102 (98-107) mmol/L Carbon Dioxide 30 (22-30) mmol/L Anion Gap 6 mmol/L BUN 17 (7-17) mg/dL Creatinine 0.75 (0.52-1.04) mg/dL Est GFR (CKD-EPI)AfAm >90 (>60 ml/min/1.73 sqM) Est GFR (CKD-EPI)NonAf 79 (>60 ml/min/1.73 sqM) Glucose 128 H (74-99) mg/dL Plasma Lactic Acid Jaime 1.4 (0.7-2.0) mmol/L Calcium 10.0 (8.4-10.2) mg/dL Magnesium 2.1 (1.6-2.3) mg/dL Total Bilirubin 1.1 (0.2-1.3) mg/dL AST 32 (14-36) U/L ALT 19 (4-34) U/L Alkaline Phosphatase 74 (38-126) U/L Troponin I <0.012 (0.000-0.034) ng/mL Total Protein 6.8 (6.3-8.2) g/dL Albumin 4.1 (3.5-5.0) g/dL Urine Color Urine Appearance (Clear) Urine pH (5.0-8.0) Ur Specific [place] (1.001-1.035) Urine Protein (Negative) Ur Protein Confirm Urine Glucose (UA) (Negative) Urine Ketones (Negative) Urine Blood (Negative) Urine Nitrite (Negative) Urine Bilirubin (Negative) Ur Bilirubin Confirm Urine Urobilinogen (<2.0) mg/dL Ur Leukocyte Esterase (Negative) Urine RBC (0-5) /hpf Urine WBC (0-5) /hpf Ur Squamous Epith Cells (0-4) /hpf Urine Bacteria (None) /hpf Urine Mucus (None) /hpf Influenza Type A (PCR) (Not Detectd) Influenza Type B (PCR) (Not Detectd) RSV (PCR) (Not Detectd) SARS-CoV-2 (PCR) (Not Detectd) 02/16/25 Range/Units 10:01 WBC (3.8-10.6) k/uL RBC (3.80-5.40) m/uL Hgb (11.4-16.0) gm/dL Hct (34.0-46.0) % MCV (80.0-100.0) fL MCH (25.0-35.0) pg MCHC (31.0-37.0) g/dL RDW (11.5-15.5) % Plt Count (150-450) k/uL MPV Neutrophils % % Lymphocytes % % Monocytes % % Eosinophils % % Basophils % % Neutrophils # (1.3-7.7) k/uL Lymphocytes # (1.0-4.8) k/uL Monocytes # (0-1.0) k/uL Eosinophils # (0-0.7) k/uL Basophils # (0-0.2) k/uL PT (10.0-12.5) sec INR (<1.2) APTT (22.0-30.0) sec Sodium (137-145) mmol/L Potassium (3.5-5.1) mmol/L Chloride (98-107) mmol/L Carbon Dioxide (22-30) mmol/L Anion Gap mmol/L BUN (7-17) mg/dL Creatinine (0.52-1.04) mg/dL Est GFR (CKD-EPI)AfAm (>60 ml/min/1.73 sqM) Est GFR (CKD-EPI)NonAf (>60 ml/min/1.73 sqM) Glucose (74-99) mg/dL Plasma Lactic Acid Jaime (0.7-2.0) mmol/L Calcium (8.4-10.2) mg/dL Magnesium (1.6-2.3) mg/dL Total Bilirubin (0.2-1.3) mg/dL AST (14-36) U/L ALT (4-34) U/L Alkaline Phosphatase (38-126) U/L Troponin I (0.000-0.034) ng/mL Total Protein (6.3-8.2) g/dL Albumin (3.5-5.0) g/dL Urine Color Urine Appearance (Clear) Urine pH (5.0-8.0) Ur Specific [place] (1.001-1.035) Urine Protein (Negative) Ur Protein Confirm Urine Glucose (UA) (Negative) Urine Ketones (Negative) Urine Blood (Negative) Urine Nitrite (Negative) Urine Bilirubin (Negative) Ur Bilirubin Confirm Urine Urobilinogen (<2.0) mg/dL Ur Leukocyte Esterase (Negative) Urine RBC (0-5) /hpf Urine WBC (0-5) /hpf Ur Squamous Epith Cells (0-4) /hpf Urine Bacteria (None) /hpf Urine Mucus (None) /hpf Influenza Type A (PCR) Not Detected (Not Detectd) Influenza Type B (PCR) Not Detected (Not Detectd) RSV (PCR) Not Detected (Not Detectd) SARS-CoV-2 (PCR) Not Detected (Not Detectd) - Radiology Data Radiology results: report reviewed, image reviewed Disposition Clinical Impression: UTI (urinary tract infection) Disposition: HOME SELF-CARE Condition: Stable Instructions (If sedation given, give patient instructions): Weakness (ED), Urinary Tract Infection in Older Adults (ED) Additional Instructions: Take Macrobid as prescribed. Return to the ER for any new or worsening concerns. Follow-up with PCP as scheduled on Wednesday. Prescriptions: Nitrofurantoin Monohyd/M-Cryst [Macrobid] 100 mg PO Q12HR #14 cap Is patient prescribed a controlled substance at d/c from ED?: No Referrals: Rogerio Chamberlain DO [Primary Care Provider] - 1-2 days Time of Disposition: 13:09
[2025-02-16] MEDS: MECLIZINE 12.5 MG TAB PO STA (10:07)
[2025-02-16] MEDS: SODIUM CHLORIDE 0.9% 1,000 ML IV ONE (10:07)
[2025-02-16 10:13] LABS: Basophils # (A) 0.1 k/uL (0-0.2); Basophils % (A) 1 %; Eosinophils # (A) 0.1 k/uL (0-0.7); Eosinophils % (A) 1 %; HGB 15.5 gm/dL (11.4-16.0); Lymphocytes # (A) 2.1 k/uL (1.0-4.8); Lymphocytes % (A) 24 %; MCH 31.7 pg (25.0-35.0); MCHC 32.9 g/dL (31.0-37.0); MCV 96.5 fL (80.0-100.0); Mean Platelet Volume 7.2; Monocytes # (A) 0.4 k/uL (0-1.0); Monocytes % (A) 5 %; Neutrophils # (A) 5.8 k/uL (1.3-7.7); Neutrophils % (A) 67 %; Platelet Count 340 k/uL (150-450); RBC 4.87 m/uL (3.80-5.40); RDW 12.3 % (11.5-15.5); WBC 8.7 k/uL (3.8-10.6)
[2025-02-16 10:19] LABS: Partial Thromboplastin Time 22.7 sec (22.0-30.0)
[2025-02-16 10:24] LABS: ALT 19 U/L (4-34); AST 32 U/L (14-36); African American GFR (CKD) >90 (>60 ml/min/1.73 sqM); Albumin 4.1 g/dL (3.5-5.0); Alkaline Phosphatase 74 U/L (38-126); Anion Gap 6 mmol/L; Blood Urea Nitrogen 17 mg/dL (7-17); Carbon Dioxide 30 mmol/L (22-30); Chloride 102 mmol/L (98-107); Glucose 128 mg/dL (74-99); Magnesium 2.1 mg/dL (1.6-2.3); Non-African American GFR(CKD) 79 (>60 ml/min/1.73 sqM); Potassium 3.9 mmol/L (3.5-5.1); Sodium 138 mmol/L (137-145); Total Bilirubin 1.1 mg/dL (0.2-1.3); Total Protein 6.8 g/dL (6.3-8.2)
--- NOTE | 2025-02-16 10:30 | CT ---
EXAMINATION TYPE: CT brain wo con DATE OF EXAM: 02/16/2025 COMPARISON: CT brain 2010 CLINICAL INDICATION: Female, 75 years old with history of weakness, Weakness. TECHNIQUE: CT scan of the head is performed without contrast. CT DLP: 1176.4 mGycm. Automated Exposure Control for Dose Reduction was Utilized. FINDINGS: There is no acute intracranial hemorrhage or midline shift identified. There is moderate diffuse ventricular and sulcal prominence consistent with diffuse age-related cerebral atrophy now id entified. There is moderate to severe low-attenuation in the deep and periventricular white matter m ost likely consistent with chronic small vessel ischemic change in patient of this age is now identif ied. Bilateral aphakia is now seen. The visualized sinuses are clear. IMPRESSION: No acute intracranial hemorrhage or midline shift. There is moderate diffuse age-relate d cerebral atrophy and moderate to severe probable chronic small vessel ischemic change now identifie d. [facility], , 02/16/2025 10:27 AM
--- NOTE | 2025-02-16 10:35 | XR ---
EXAMINATION TYPE: XR chest 2V DATE OF EXAM: 02/16/2025 10:25 AM COMPARISON: Chest radiographs from 02/18/2017, CTA chest 10/22/2023 TECHNIQUE: XR chest 2V Frontal and lateral views of the chest. CLINICAL INDICATION:Female, 75 years old with history of Weakness; FINDINGS: Lungs/Pleura: There is no evidence of pleural effusion, focal consolidation, or pneumothorax. Pulmonary vascularity: Unremarkable. Heart/mediastinum: Cardiomediastinal silhouette is unremarkable. Musculoskeletal: Multiple level degenerative disc disease changes seen throughout the spine. IMPRESSION: No acute cardiopulmonary disease/process. [facility], , 02/16/2025 10:32 AM
[2025-02-16 11:28] LABS: Bacteria,Urine Rare /hpf; Mucus,Urine Rare /hpf; RBC,Urine 1 /hpf (0-5); Squamous Epithelial Cell,Urine 1 /hpf (0-4); WBC,Urine 42 /hpf (0-5)
[2025-02-16 12:09] VITALS: RESP 18
[2025-02-16 12:24] LABS: Appearance,Urine Cloudy (Clear); Bilirubin,Urine Negative (Negative); Blood,Urine Negative (Negative); Color,Urine Colorless; Glucose,Urine (UA) Negative (Negative); Ketones,Urine Negative (Negative); Leukocyte Esterase,Urine Large (Negative); Nitrite,Urine Positive (Negative); PH, Urine 6.5 (5.0-8.0); Protein,Urine Negative (Negative); Specific Gravity,Urine 1.012 (1.001-1.035); Urobilinogen,Urine <2.0 mg/dL (<2.0)
[2025-02-16 12:58] LABS: Influenza A Not Detected (Not Detectd); Influenza B Not Detected (Not Detectd); RSV Not Detected (Not Detectd)
[2025-02-16 13:56] VITALS: BP 174/90; PULSE 82
== END 2025-02-16 13:55 | disposition home or self-care (01) ==
LOC: EC 09:18
DX: N39.0 Urinary tract infection, site not specified (principal); B96.20 Unspecified Escherichia coli [E. coli] as the cause of diseases classified elsewhere; E78.5 Hyperlipidemia, unspecified; I10 Essential (primary) hypertension; K21.9 Gastro-esophageal reflux disease without esophagitis; Z79.899 Other long term (current) drug therapy; Z88.0 Allergy status to penicillin; Z88.1 Allergy status to other antibiotic agents; Z88.2 Allergy status to sulfonamides; Z91.09 Other allergy status, other than to drugs and biological substances
CPT/HCPCS: 36415; 70450; 71046; 80053; 81001; 83605; 83735; 84484; 85025; 85610; 85730; 87077; 87086; 87186; 87636; 93005; 96360; 99285

== ENCOUNTER → 2025-06-15 | Outpatient (CLI) | payer MEDICARE, OTHER ==
--- NOTE | 2025-06-20 12:17 | MR ---
INDICATION: Patient age:Female; 75 years old; Reason for study: I67.9 CEREBROVASCULAR DISEASE, UNSPECIFIED; [facility]. COMPARISON: CT brain 02/16/2025. TECHNIQUE: Multi planar, multi sequence imaging was performed through the brain without intravenous c ontrast. FINDINGS: The correa-white junctions, ventricular system, basal cisterns appear unremarkable. Moderate age-approp riate cerebral volume loss. Diffusion-weighted imaging shows no evidence of restricted diffusion to s uggest acute/subacute infarct. Intracranial arterial flow voids are maintained. Empty sella morpholog y. Midline structures show no abnormality. Patchy and confluent areas of high T2/FLAIR signal intensi ty are seen within the periventricular white matter. The susceptibility weighted images do not reveal any evidence for micro-hemorrhage. The bone marrow signal is within normal limits. The paranasal sinuses are unremarkable. Bilateral ap hakia. IMPRESSION: 1. No evidence of intracranial mass or acute/subacute infarct. 2. Moderate cerebral atrophy with nonspecific advanced white matter changes, likely related to small vessel ischemic disease. [facility], , 06/20/2025 12:15 PM
== END | disposition home or self-care (01) ==
LOC: RADMRIMAIN 08:46
PROVIDERS: ATTEND Psychiatry & Neurology Neurology
DX: I67.9 Cerebrovascular disease, unspecified (principal); G31.9 Degenerative disease of nervous system, unspecified
CPT/HCPCS: 70551